=== PATIENT | male | born 1945 | race Caucasian/White ===

== ENCOUNTER 2017-02-21 08:10 | Inpatient (IN) ==
[2017-02-21] MEDS ORDERED: 0.9 % Sodium Chloride 500 ML IVC ONE (08:17)
--- NOTE | 2017-02-21 08:27 | Emergency Department Note ---
START Narrative - START START: I examined this patient and my medical decision-making was reviewed with the emergency medicine resident. I agree with the documented findings, disposition and treatment plan as described except to the extent set forth below. Patient seen with emergency medicine resident Dr. Joe Arevalo, Please see a copy of his note for details of the H&P, ED evaluation, management and disposition. I have independently evaluated the patient and confirmed appropriate portions of the history and physical exam. Briefly: 71-year-old male [facility] patient by [facility] for fall and altered mental status. Patient is on aspirin. No external signs of trauma. Afebrile stable vital signs. Patient will get a noncontrast CT of head screening labs EKG. Disposition pending but admission anticipated.
[2017-02-21 08:38] LABS: Basophils % 0.6 %; Eosinophils # 0.1 K/mcL (0.0-0.6); Eosinophils % 2.2 %; Hematocrit 37.3 % (37.5-50.1); Hemoglobin 11.7 g/dL (12.9-16.9); Immature Granulocytes % 0.5 % (0-4); Lymphocytes % 15.3 %; Mean Corpuscular HGB Conc 31.4 g/dL (31.6-35.5); Mean Corpuscular Hemoglobin 29.3 pg (28.0-33.3); Mean Corpuscular Volume 93.5 fL (83.0-100.0); Mean Platelet Volume 9.7 fL (9.4-12.4); Monocytes # 0.7 K/mcL (0.0-1.3); Neutrophils # 4.6 K/mcL (1.6-8.9); Platelet Count 136 K/mcL (140-400); Red Blood Count 3.99 M/mcL (4.19-5.50); Red Cell Distribution Width 13.3 % (11.5-14.5); Segmented Neutrophils % 71.4 %
[2017-02-21 08:50] LABS: INR 1.3; Prothrombin Time 13.7 Seconds (9.4-12.1)
[2017-02-21 08:51] LABS: Bilirubin,Urine Negative (Negative); Blood,Urine Moderate (Negative); Clarity,Urine Clear (Clear); Color,Urine Yellow (Yellow); Glucose,Urine (UA) Normal (Normal); Ketones,Urine Negative (Negative); Leukocyte Esterase,Urine Small (Negative); Nitrite,Urine Negative (Negative); PH,Urine 7.5 pH Units (5.0-8.0); Protein,Urine 30 mg/dL (Neg-Trace); Urobilinogen,Urine Normal (Normal)
[2017-02-21 08:53] LABS: Activated Partial Thrombo Time 33.2 Seconds (26.0-36.0)
[2017-02-21 08:54] LABS: Albumin 4.1 g/dL (3.5-5.0); Albumin/Globulin Ratio 1.2 (1.1-2.2); Calcium 9.6 mg/dL (8.6-10.8); Globulin 3.5 g/dL (2.4-3.5); Potassium 4.3 mEq/L (3.5-4.5); Total Protein 7.6 g/dL (6.0-8.3)
[2017-02-21 08:54] LABS: Bacteria,Urine None Seen per hpf (None-Few); Hyaline Casts,Urine None Seen per lpf (None-Few); RBC,Urine 30-50 per hpf (0-3); Squamous Epithelial Cell,Urine Many per lpf (None-Few); WBC,Urine 30-50 per hpf (0-3)
--- NOTE | 2017-02-21 09:02 | Emergency Department Note ---
Disposition Clinical Impression: ESRD (end stage renal disease) Urinary tract infection Qualifiers: Urinary tract infection type: site unspecified Hematuria presence: with hematuria Qualified Code(s): N39.0 - Urinary tract infection, site not specified ; R31.9 - Hematuria, unspecified Altered mental status Qualifiers: Altered mental status type: unspecified Qualified Code(s): R41.82 - Altered mental status, unspecified Fall Qualifiers: Encounter type: initial encounter Qualified Code(s): W19.XXXA - Unspecified fall, initial encounter Disposition: Admitted As Inpatient Condition: Fair Time of Disposition: 10:14 General Adult HPI - General Chief complaint: ED Fall Stated complaint: Fall, AMS Time Seen by Provider: 02/21/17 08:14 Source: patient, EMS Mode of arrival: EMS Limitations: no limitations Nursing Notes Reviewed: Yes Vital Signs Reviewed: Yes - History of Present Illness HPI Narrative: Patient presents to the ED with the complaint of fall and altered mental status. Patient is from home and is a dialysis patient with Dr. Campbell on Friday, Friday, Friday. Apparently 2 days ago. The patient had a mechanical fall and has been having right-sided back and hip pain since then. He had dialysis this morning. They felt that he may have been altered and was complaining of some left-sided weakness, possibly. Patient denies any weakness, but is unsure what his baseline is. He is alert and oriented and at baseline according to him , but dialysis, so the patient felt he was a little slower than usual. No difficulty with speech. Patient is somewhat of a poor historian as he does not know all of his medical history and we have no previous records at this time. He is denying any chest pain or shortness of breath, but does have some right- sided low back pain that is radiating down into his right hip. No fever or chills. No diarrhea. Pain Scale: 7 - Related Data Home Medications Medication Instructions Recorded Confirmed Acetaminophen [Tylenol] 650 mg PO PRN PRN 02/26/16 02/26/16 Aspirin Enteric Coated [Aspirin EC] 81 mg PO DAILY 02/26/16 02/26/16 Atorvastatin [Lipitor] 40 mg PO QPM 02/26/16 02/26/16 BuPROPion SR (12 HR) [Wellbutrin 150 mg PO BID 02/26/16 02/26/16 SR] Carvedilol [Coreg] 6.25 mg PO BIDWM 02/26/16 02/26/16 Docusate [Colace] 100 mg PO BID 02/26/16 02/26/16 Doxazosin Mesylate [Cardura] 2 mg PO HS 02/26/16 02/26/16 Ergocalciferol (VITAMIN D2) 800 unit PO BID 02/26/16 02/26/16 [Vitamin D] Ethyl Chloride 2 spray TP AD MDD Prior to Dialysis 02/26/16 02/26/16 Gabapentin [Neurontin] 400 mg PO TID 02/26/16 02/26/16 Hypromellose [Pure & Gentle Eye 1 drop BOTH EYES QID 02/26/16 02/26/16 Drops] Omeprazole [PriLOSEC] 40 mg PO DAILY 02/26/16 02/26/16 Oxybutynin Chloride [Ditropan Xl] 20 mg PO DAILY 02/26/16 02/26/16 Oxycodone HCl 10 mg PO BID 02/26/16 02/26/16 Sertraline [Zoloft] 100 mg PO QAM 02/26/16 02/26/16 TraZODone 50 mg PO HS PRN 02/26/16 02/26/16 Previous Rx's Medication Instructions Recorded Amoxicillin 250 mg PO QMWF #3 capsule 02/29/16 Amoxicillin 500 mg PO DAILY #5 tablet 02/29/16 Allergies Allergy/AdvReac Type Severity Reaction Status Date / Time gemfibrozil Allergy See Verified 02/21/17 08:21 Comments Terazosin Allergy See Verified 02/21/17 08:21 Comments All systems ED: reviewed and negative except as stated. Constitutional: Reports: weakness (possibe ). Denies: fever Cardiovascular: Denies: chest pain Respiratory: Denies: dyspnea Gastrointestinal: Denies: vomiting Musculoskeletal: Reports: as per HPI, back pain Neurological: Denies: headache Past Medical History - Past Medical History Attestation: Yes The following information was validated with the patient. Source: patient Medical history: Reports: cancer, CHF, COPD, diabetes, GERD, hyperlipidemia, hypertension, renal disease, TIA Psychiatric history: Reports: depression, PTSD - Social History Smoking Status: Never smoker Alcohol use: Reports: none Drug use: Reports: none Physical Exam - General Limitations: no limitations General appearance: alert, in no apparent distress - Head Head exam: atraumatic, normocephalic, normal inspection - Eye Eye exam: Present: normal appearance, PERRL, EOMI. Absent: conjunctival injection - Neck Neck exam: Present: normal inspection, full ROM, trachea midline - Chest Chest inspection: Present: normal inspection, symmetric chest wall rise - Respiratory Respiratory exam: Present: normal lung sounds bilaterally - Cardiovascular Cardiovascular exam: Present: regular rate, normal rhythm, normal heart sounds - Abdominal Exam Abdominal exam: Present: soft, Non-Tender. Absent: tenderness, distention, guarding, rebound, rigidity - Extremities Exam Extremities exam: Present: other (bilateral leg weakness patient states is from low back and R low back pain) - Expanded Lower Extremity Exam Hip/Pelvis exam: Present: pelvis stable. Absent: tenderness, deformity, dislocation, external rotation, internal rotation, shortening - Back Exam Back exam: Present: tenderness, muscle spasm (R lumbar and piriformis ) - Neurological Exam Neurological exam: Present: alert, oriented X3 - Psychiatric Psychiatric exam: Present: flat affect - Skin Skin exam: Present: warm, dry, intact, normal color Course Course Narrative: 71 -year-old male presenting with altered mental status and fall from dialysis. Workup initiated. Patient's not tender in his right hip. Log roll is negative for pain. He does have a positive straight leg raise which causes pain in his low back on the right. We will CT his head and lumbar spine. Anticipated admission. - Consultations Consultation #1: Admitted to the hospitalist. Did request CT of head due to patient being nonambulatory. Also of note, patient did have x-rays at an urgent care 2 days ago that were normal. Time: 10:13 Vital Signs Temperature 97.9 F 02/21/17 08:12 Pulse Rate 70 02/21/17 08:12 Respiratory Rate 16 02/21/17 08:12 Blood Pressure 136/87 02/21/17 08:12 O2 Sat by Pulse Oximetry 93 02/21/17 08:12 Temperature 97.9 F 02/21/17 08:12 Pulse Rate 70 02/21/17 09:24 Respiratory Rate 16 02/21/17 09:24 Blood Pressure 138/88 02/21/17 09:24 O2 Sat by Pulse Oximetry 94 02/21/17 09:24 Oxygen Delivery Oxygen Delivery Room Air Medical Decision Making - Medical Records Medical records reviewed: Yes I reviewed the patient's medical records. - Lab Data Lab results reviewed: Yes I reviewed the patient's lab results. Result diagrams: 02/21/17 08:31 02/21/17 08:31 Lab Results 02/21/17 02/21/17 02/21/17 Range/Units 08:30 08:31 08:31 WBC 6.5 (4.3-11.1) K/mcL RBC 3.99 L (4.19-5.50) M/mcL Hgb 11.7 L (12.9-16.9) g/dL Hct 37.3 L (37.5-50.1) % MCV 93.5 (83.0-100.0) fL MCH 29.3 (28.0-33.3) pg MCHC 31.4 L (31.6-35.5) g/dL RDW 13.3 (11.5-14.5) % Plt Count 136 L (140-400) K/mcL MPV 9.7 (9.4-12.4) fL Immature Gran % 0.5 (0-4) % Seg Neutrophils % 71.4 % Lymphocytes % 15.3 % Monocytes % 10.0 % Eosinophils % 2.2 % Basophils % 0.6 % Neutrophils # 4.6 (1.6-8.9) K/mcL Lymphocytes # 1.0 (0.6-4.6) K/mcL Monocytes # 0.7 (0.0-1.3) K/mcL Eosinophils # 0.1 (0.0-0.6) K/mcL Basophils # 0.0 (0.0-0.2) K/mcL PT 13.7 H (9.4-12.1) Seconds INR 1.3 APTT 33.2 (26.0-36.0) Seconds Sodium (136-145) mEq/L Potassium (3.5-4.5) mEq/L Chloride (98-109) mEq/L Carbon Dioxide (19-29) mEq/L BUN (8-26) mg/dL Creatinine (0.72-1.25) mg/dL Est GFR ( Amer) (> 60) Est GFR (Non-Af Amer) (> 60) BUN/Creatinine Ratio (6-26) Glucose (70-99) mg/dL Calculated Osmolality (280-300) Lactic Acid (0.5-2.2) mmol/L Calcium (8.6-10.8) mg/dL Total Bilirubin (0.2-1.2) mg/dL AST (5-34) Units/L ALT (0-55) Units/L Alkaline Phosphatase (38-126) Units/L Troponin I (0-0.03) ng/mL Serum Total Protein (6.0-8.3) g/dL Albumin (3.5-5.0) g/dL Globulin (2.4-3.5) g/dL Albumin/Globulin Ratio (1.1-2.2) Urine Color Yellow (Yellow) Urine Clarity Clear (Clear) Urine pH 7.5 (5.0-8.0) pH Units Ur Specific [place] 1.020 (1.010-1.025) Urine Protein 30 H (Neg-Trace) mg/dL Urine Glucose (UA) Normal (Normal) mg/dL Urine Ketones Negative (Negative) mg/dL Urine Blood Moderate H (Negative) Urine Nitrite Negative (Negative) Urine Bilirubin Negative (Negative) Urine Urobilinogen Normal (Normal) mg/dL Ur Leukocyte Esterase Small H (Negative) Urine Microscopic RBC 30-50 H (0-3) per hpf Urine Microscopic WBC 30-50 H (0-3) per hpf Ur Squamous Epith Cells Many H (None-Few) per lpf Urine Bacteria None Seen (None-Few) per hpf Hyaline Casts None Seen (None-Few) per lpf Ur Culture Indicated? YES A (NO) 02/21/17 02/21/17 02/21/17 Range/Units 08:31 08:31 08:31 WBC (4.3-11.1) K/mcL RBC (4.19-5.50) M/mcL Hgb (12.9-16.9) g/dL Hct (37.5-50.1) % MCV (83.0-100.0) fL MCH (28.0-33.3) pg MCHC (31.6-35.5) g/dL RDW (11.5-14.5) % Plt Count (140-400) K/mcL MPV (9.4-12.4) fL Immature Gran % (0-4) % Seg Neutrophils % % Lymphocytes % % Monocytes % % Eosinophils % % Basophils % % Neutrophils # (1.6-8.9) K/mcL Lymphocytes # (0.6-4.6) K/mcL Monocytes # (0.0-1.3) K/mcL Eosinophils # (0.0-0.6) K/mcL Basophils # (0.0-0.2) K/mcL PT (9.4-12.1) Seconds INR APTT (26.0-36.0) Seconds Sodium 145 (136-145) mEq/L Potassium 4.3 (3.5-4.5) mEq/L Chloride 102 (98-109) mEq/L Carbon Dioxide 35 H (19-29) mEq/L BUN 18 (8-26) mg/dL Creatinine 1.85 H (0.72-1.25) mg/dL Est GFR ( Amer) 44 L (> 60) Est GFR (Non-Af Amer) 36 L (> 60) BUN/Creatinine Ratio 10 (6-26) Glucose 75 (70-99) mg/dL Calculated Osmolality 301 H (280-300) Lactic Acid 0.7 (0.5-2.2) mmol/L Calcium 9.6 (8.6-10.8) mg/dL Total Bilirubin 1.0 (0.2-1.2) mg/dL AST 14 (5-34) Units/L ALT 14 (0-55) Units/L Alkaline Phosphatase 86 (38-126) Units/L Troponin I 0.02 (0-0.03) ng/mL Serum Total Protein 7.6 (6.0-8.3) g/dL Albumin 4.1 (3.5-5.0) g/dL Globulin 3.5 (2.4-3.5) g/dL Albumin/Globulin Ratio 1.2 (1.1-2.2) Urine Color (Yellow) Urine Clarity (Clear) Urine pH (5.0-8.0) pH Units Ur Specific [place] (1.010-1.025) Urine Protein (Neg-Trace) mg/dL Urine Glucose (UA) (Normal) mg/dL Urine Ketones (Negative) mg/dL Urine Blood (Negative) Urine Nitrite (Negative) Urine Bilirubin (Negative) Urine Urobilinogen (Normal) mg/dL Ur Leukocyte Esterase (Negative) Urine Microscopic RBC (0-3) per hpf Urine Microscopic WBC (0-3) per hpf Ur Squamous Epith Cells (None-Few) per lpf Urine Bacteria (None-Few) per hpf Hyaline Casts (None-Few) per lpf Ur Culture Indicated? (NO) - Radiology Data Radiology results reviewed: Yes I reviewed the patient's radiology results. Chest X-Ray 02/21/17 08:14 IMPRESSION: 1. Patchy airspace opacities which may represent infection or aspiration. 2. Small left effusion. 3. Cardiomegaly. D/ / Tali Glaser MD / Tali Glaser MD Interpreting Provider: Tali Glaser MD - EKG Data EKG #1 EKG attestation: Yes I reviewed and interpreted this EKG. EKG results narrative: Paced rhythm, rate 70, QRS 185, QTC 497, no acute ischemic changes.
[2017-02-21] MEDS ORDERED: Naloxone 0.4 MG/ML INJ IVP PRN (10:18)
[2017-02-21] MEDS ORDERED: Ondansetron 4 MG/2 ML VIAL IVP PRN (10:18)
--- NOTE | 2017-02-21 10:29 | Internal Med History&Physical ---
Date of Encounter: 02/21/17 Time of Encounter: 10:30 Assessment and Plan (1) Altered mental status Current visit: Yes Status: Acute Likely multifactorial - secondary to possible acute UTI, polypharmacy (new cyclobenzaprine and increased hydrocodone dose from baseline) in setting of ESRD. CT head negative for acute abnormalities. During my exam patient is AOx3, confusion has been intermittent and subtle. - Treat for UTI - Hold cyclobenzaprine - Monitor for improvement in confusion Qualifiers: Altered mental status type: unspecified Qualified Code(s): R41.82 - Altered mental status, unspecified (2) Urinary tract infection Current visit: Yes Status: Acute UA with 30-50 WBCs/HPF from cathed specimen. Could have component of urinary retention - Ceftriaxone initiated in ED, will continue - Urine culture pending - Bladder scan Q4H, straight cath if >250ccs residual Qualifiers: Urinary tract infection type: site unspecified Hematuria presence: with hematuria Qualified Code(s): N39.0 - Urinary tract infection, site not specified; R31.9 - Hematuria, unspecified (3) Right hip pain Current visit: Yes Status: Acute S/p fall. X-rays from urgent care were reportedly normal per 's report. - CT right hip to further eval for fracture - Further management pending CT results (4) Atrial fibrillation Current visit: Yes Status: Acute S/p AV node ablation and BiV/ICD placement. Is not anticoagulated secondary to history of GI bleed - Continue home carvedilol and ASA Qualifiers: Atrial fibrillation type: chronic Qualified Code(s): I48.2 - Chronic atrial fibrillation (5) ESRD (end stage renal disease) Current visit: Yes Status: Chronic Patient did receive dialysis today, was stopped fifty minutes early according to his because of his confusion. Missed dialysis Friday. Electrolytes stable. - Will inform Dr. Campbell of patient's admission, will not formally consult unless patient needs dialysis during admission Internal Medicine - H&P: HPI Chief complaint: Altered mentation, right hip pain Admitted From: Emergency Dept Plans for Post Hospital Care: Home History of present illness: Mr. Lee is a 71 year old male with history of ESRD on HD MWF (follows with Dr. Campbell), COPD, bladder cancer, atrial fibrillation with LBBB and CHF s/p BiV ICD who presented to the ED from dialysis this morning because the dialysis nurses noted that he was acting confused. The patient's is present at bedside and helps provide history. She notes that he fell on 02/18 while [facility] and hurt his right hip. The pain was severe and she took him to the [place] urgent care twice for evaluation. He had xrays performed which did not show evidence of fracture, so he was started on cyclobenzaprine and told to take increased dose of his hydrocodone he is already prescribed for chronic lower back pain. His has noticed that he has been intermittently confused since starting these medications. His right hip has continued to be extremely painful with any type of movement, and he has been unable to walk since he fell on Friday. He fell again yesterday and he is unsure if he hit his head. He denies headache, chest pain or shortness of breath. He notes that he does make a significant amount of urine daily, has been using a urinal at home because he is unable to walk to the bathroom. He has not had fever or chills. Past Med Surg Social Fam HX - Past Medical History Medical history: cancer (bladder), CHF, COPD, diabetes, GERD, hyperlipidemia, hypertension, renal disease (ESRD on HD, follows with Dr. Campbell), TIA Psychiatric history: depression, PTSD - Past Surgical History Surgical History: pacemaker/AICD, other (dialysis fistula, bladder surgery for cancer) - Social History Smoking Status: Former smoker (quit 20 years ago) Alcohol use: none Drug use: none - Family History Mother Hx Family Cardiac Disorders: Yes Father Hx Family Cardiac Disorders: Yes Internal Medicine - H&P: Meds Acetaminophen [Tylenol] 650 mg PO PRN PRN 02/26/16 [History] Aspirin Enteric Coated [Aspirin EC] 81 mg PO DAILY 02/26/16 [History] Atorvastatin [Lipitor] 40 mg PO QPM 02/26/16 [History] BuPROPion SR (12 HR) [Wellbutrin SR] 150 mg PO BID 02/26/16 [History] Carvedilol [Coreg] 12.5 mg PO BID 02/26/16 [History] Ergocalciferol (VITAMIN D2) [Vitamin D] 800 unit PO BID 02/26/16 [History] Ethyl Chloride 2 spray TP AD MDD Prior to Dialysis 02/26/16 [History] Hypromellose [Pure & Gentle Eye Drops] 1 drop BOTH EYES QID 02/26/16 [History] Omeprazole [PriLOSEC] 40 mg PO DAILY 02/26/16 [History] Oxybutynin Chloride [Ditropan Xl] 20 mg PO DAILY 02/26/16 [History] Oxycodone HCl 10 mg PO BID 02/26/16 [History] Sertraline [Zoloft] 100 mg PO QAM 02/26/16 [History] TraZODone 50 mg PO HS PRN 02/26/16 [History] Albuterol Sulfate [Albuterol Inhaler] 2 puff IH Q6H PRN 02/21/17 [History] Gabapentin [Neurontin] 300 mg PO TID 02/21/17 [History] 3 Allergy/AdvReac Type Severity Reaction Status Date / Time gemfibrozil Allergy See Verified 02/21/17 08:21 Comments Terazosin Allergy See Verified 02/21/17 08:21 Comments All Systems PM: A 10-system review of systems was performed and is negative for pertinent findings except as documented above in the HPI. - Constitutional Constitutional: falls, weakness, no fever(s) - Cardiovascular Cardiovascular ROS IM: no chest pain, no dyspnea - Respiratory Respiratory: no cough - Gastrointestinal Gastrointestinal: constipation, no abdominal pain, no diarrhea, no nausea, no vomiting - Musculoskeletal Musculoskeletal ROS IM: no numbness, no stiffness - Neurological Neurological ROS: confusion, no tremor(s) - Endocrine Endocrine IM: fatigue - Constitutional Vitals: Temp Pulse Resp BP Pulse Ox 97.9 F 70 16 148/89 94 02/21/17 08:12 02/21/17 09:24 02/21/17 10:17 02/21/17 10:17 02/21/17 09:24 General appearance: Present: A&O X 3, pleasant, no acute distress - Head Head exam: Present: atraumatic - Eye Eye exam: Present: EOMI, sclera anicteric - ENT ENT exam: Present: mucous membranes moist - Neck Neck exam general surgery: Present: supple - Respiratory Respiratory exam: Present: CTAB - Cardiovascular Cardiovascular exam: Present: RRR. Absent: diastolic murmur, systolic murmur, tachycardia - GI/Abdominal GI/Abdominal exam: Present: normal bowel sounds, soft. Absent: distended, tenderness - Extremities Exam Extremities exam: Absent: calf tenderness, pedal edema Additional comments: pain with passive hip flexion, no point tenderness appreciated - Neurological Exam Neurological exam: Present: CN II-XII intact, oriented X3, strengths equal and symetr throughout. Absent: facial droop - Skin Skin exam: Absent: rash Internal Med - H&P Results - Labs CBC & Chem 7: 02/21/17 08:31 02/21/17 08:31
[2017-02-21] MEDS ORDERED: traZODone 50 MG TABLET PO PRN (12:16)
[2017-02-21] MEDS ORDERED: Ethyl Chloride Spray Bottle (104 SPRAY/BOTTLE) TP SCH (12:30)
[2017-02-21] MEDS ORDERED: Artificial Tears SOLN 15 ML BOTTLE BOTH EYES SCH (13:00)
[2017-02-21] MEDS ORDERED: Ethyl Chloride Spray Bottle (104 SPRAY/BOTTLE) TP PRN (13:43)
[2017-02-21] MEDS: Gabapentin 300 MG CAPSULE PO SCH ×2 (14:05→21:16)
[2017-02-21] MEDS: *HR* OxyCODONE Immed Rel 5 MG TABLET PO PRN (14:07)
[2017-02-21] MEDS ORDERED: Artificial Tears SOLN 15 ML BOTTLE BOTH EYES PRN (14:31)
[2017-02-21] MEDS: Acetaminophen 325 MG TABLET PO PRN (15:41)
--- NOTE | 2017-02-21 18:12 | Electrocardiograph Report ---
[place] [id number] Test Date: 2017-02-21 Pat Name: Sreekanth Lee Department: 103 Room: [facility] Gender: M Field Research Assistant: : [id number] Requested By: Joe Arevalo Order Number: [id number] [place] MD: Glenys Nickerson Measurements Intervals [place] Rate: 70 P: MA: 0 QRS: 215 QRSD: 185 T: 20 QT: 477 QTc: 497 Interpretive Statements ELECTRONIC VENTRICULAR PACEMAKER ABNORMAL RHYTHM ECG Electronically Signed On 02-21-2017 18:11:28 EDT by Glenys Nickerson
[2017-02-21] MEDS ORDERED: *HR* OxyCODONE Immed Rel 5 MG TABLET PO SCH (21:00)
[2017-02-21] MEDS: BuPROPion SR (12 HR) 150 MG TABLET PO SCH (21:16)
[2017-02-22] MEDS: *HR* OxyCODONE Immed Rel 5 MG TABLET PO PRN ×2 (00:11→11:25)
[2017-02-22 03:52] LABS: Basophils # 0.1 K/mcL (0.0-0.2); Basophils % 0.7 %; Eosinophils # 0.1 K/mcL (0.0-0.6); Eosinophils % 1.8 %; Hematocrit 36.1 % (37.5-50.1); Immature Granulocytes % 0.3 % (0-4); Lymphocytes % 13.7 %; Mean Corpuscular HGB Conc 30.5 g/dL (31.6-35.5); Mean Corpuscular Hemoglobin 29.3 pg (28.0-33.3); Mean Platelet Volume 9.9 fL (9.4-12.4); Monocytes # 0.7 K/mcL (0.0-1.3); Monocytes % 9.7 %; Neutrophils # 5.5 K/mcL (1.6-8.9); Platelet Count 139 K/mcL (140-400); Red Blood Count 3.76 M/mcL (4.19-5.50); Red Cell Distribution Width 13.5 % (11.5-14.5); Segmented Neutrophils % 73.8 %
[2017-02-22 04:05] LABS: Calcium 9.2 mg/dL (8.6-10.8); Potassium 4.9 mEq/L (3.5-4.5)
[2017-02-22] MEDS: Aspirin Enteric Coated 81 MG Tablet PO SCH (08:11)
[2017-02-22] MEDS: BuPROPion SR (12 HR) 150 MG TABLET PO SCH ×2 (08:11→22:25)
[2017-02-22] MEDS: Cholecalciferol (D-3) 1,000 UNIT TABLET PO SCH (08:12)
[2017-02-22] MEDS: Gabapentin 300 MG CAPSULE PO SCH ×3 (08:12→22:25)
--- NOTE | 2017-02-22 08:46 | Nephrology Consult Note ---
Date of Encounter: 02/22/17 Time of Encounter: 08:15 Assessment and Plan (1) ESRD (end stage renal disease) Current Visit: Yes Status: Chronic Altered mental status changes most likely to start of cyclobenzaprine and increase in hydrocodone. UTI may be contributing. No HD today, will follow. History of Present Illness - Reason for Consult end stage renal disease - History of Present Illness Mr. Lee is a 71 year old male with ESRD who dialyzes at [facility]. Other PMH-CHF, COPD, diabetes, GERD, hyperlipidemia, hypertension, renal disease ( ESRD on HD, follows with Dr. Campbell), TIA, depression, PTSD. Last dialysis yesterday though ended treatment 50 minutes kamila when noted to have mental status changes. Mr. Lee was somewhat difficult to arouse on treatment and noted by staff to have slow speech and difficulty lifting glass of water to mouth. It was noted that Mr. Lee had fallen on Friday and again on . He is a poor historian. Staff spoke with who agreed patient had not been at his baseline mentation. Recently started on cyclobenzaprine with an increase in hydrocodone dose from baseline. Xrays on Friday at Urgent Care reported as negtive. CT of hip yesterday, no acute abnormalities. Head CT-No acute intracranial abnormality. Urine 30-50 WBCs/HPF from cathed specimen. Started on Ceftriaxone. Urine culture pending. This morning Mr. Lee who is well known, seems to be back at his baseline mental status and he states he feels better and more aware. Past Med Surg Social Fam HX - Past Medical History Medical history: cancer (bladder), CHF, COPD, diabetes, GERD, hyperlipidemia, hypertension, renal disease (ESRD on HD, follows with Dr. Campbell), TIA Psychiatric history: depression, PTSD - Past Surgical History Surgical History: pacemaker/AICD, other (dialysis fistula, bladder surgery for cancer) - Social History Smoking Status: Former smoker (quit 20 years ago) Alcohol use: none Drug use: none - Family History Mother Living Status: Hx Family Cardiac Disorders: Yes Father Living Status: Hx Family Cardiac Disorders: Yes Medications and Allergies Acetaminophen [Tylenol] 650 mg PO PRN PRN 02/26/16 [History] Aspirin Enteric Coated [Aspirin EC] 81 mg PO DAILY 02/26/16 [History] Atorvastatin [Lipitor] 40 mg PO QPM 02/26/16 [History] BuPROPion SR (12 HR) [Wellbutrin SR] 150 mg PO BID 02/26/16 [History] Carvedilol [Coreg] 12.5 mg PO BID 02/26/16 [History] Ergocalciferol (VITAMIN D2) [Vitamin D] 800 unit PO BID 02/26/16 [History] Ethyl Chloride 2 spray TP AD MDD Prior to Dialysis 02/26/16 [History] Hypromellose [Pure & Gentle Eye Drops] 1 drop BOTH EYES QID 02/26/16 [History] Omeprazole [PriLOSEC] 40 mg PO DAILY 02/26/16 [History] Oxybutynin Chloride [Ditropan Xl] 20 mg PO DAILY 02/26/16 [History] Oxycodone HCl 10 mg PO BID 02/26/16 [History] Sertraline [Zoloft] 100 mg PO QAM 02/26/16 [History] TraZODone 50 mg PO HS PRN 02/26/16 [History] Albuterol Sulfate [Albuterol Inhaler] 2 puff IH Q6H PRN 02/21/17 [History] Gabapentin [Neurontin] 300 mg PO TID 02/21/17 [History] 3 Allergy/AdvReac Type Severity Reaction Status Date / Time gemfibrozil Allergy See Verified 02/21/17 08:21 Comments Terazosin Allergy See Verified 02/21/17 08:21 Comments Review of Systems All Systems: reviewed and no additional remarkable complaints except as stated Exam - Vital Signs Vital signs: Initial Vital Signs Temp Pulse Resp BP Pulse Ox 97.9 F 70 16 136/87 93 02/21/17 08:12 02/21/17 08:12 02/21/17 08:12 02/21/17 08:12 02/21/17 08:12 Vital Signs - Last 8 Hours Temp Pulse Resp BP Pulse Ox 02/22/17 06:55 98.6 F 72 16 127/73 91 02/22/17 03:40 98.6 F 71 16 130/56 90 Intake and Output 02/21/17 02/22/17 02/22/17 23:59 07:59 15:59 Intake Total 120 / 120 80 / 80 Output Total 100 / 100 250 / 250 Balance 20 / 20 -170 / -170 Intake: Oral 120 / 120 80 / 80 Output: Urine 100 / 100 250 / 250 Other: Meal Dinner Percent of Meal Consumed 70% - General Appearance General appearance: well-developed, well-nourished, appears started age EENT: mucous membranes moist Neck: no JVD Respiratory: clear Cardiology: no edema, regular rate, regular rhythm Gastrointestinal: normoactive bowel sounds, no tenderness Integumentary: warm and dry Psychiatric: mood/affect appropriate, cooperative Results - Lab Results 02/22/17 03:30 02/22/17 03:30 Most recent lab results Calcium 9.2 mg/dL (8.6-10.8) 02/22/17 03:30 Consult Discharge Plan - Plan [facility]errals: [facility]Primary Care Provider[facility] -
--- NOTE | 2017-02-22 08:50 | Internal Med Progress Note ---
Date of Encounter: 02/22/17 Time of Encounter: 08:43 - Subjective Interval history: Mr. Sreekanth Lee is a 71-year-old male came in with the fall and right hip pain followed by confusion. He has past medical history significant for diabetes hypertension dyslipidemia ESRD with dialysis cardiomyopathy/CHF EF of only 30-35 % and global hypokinesis on recent status post ICD. Apparently he was restarted on Flexeril and increased dose of [place] after his fall by urgent care where x-ray hip was reported negative for fracture. He was noted confusing dialysis and was sent to the hospital. UA showed positive leukocytes. #1 altered mental status: Could be metabolic encephalopathy secondary to UTI versus iatrogenic secondary to Flexeril and to [place]. Therefore will stop Flexeril produced [place] as this is his chronic medication and watch him neurologically. Admitting M.D. has put a neuro consult and CT is reported negative. #2 right hip pain/lumbar spondylosis: CT right hip is negative for fracture. CT lumbar spine showed moderate lumbar canal spinal canal stenosis as well as bilateral L4-5 and L5-S1 lumbar radiculopathy/foramen stenosis. Right hip examined. Full range of motion and no pain. PT OT will be consulted. #3 UTI: Cultures pending patient is on IV Rocephin and follow CBC and clinically #4 ESRD: Nephrology is consulted #5 diabetes/hypertension/dyslipidemia continue home medication Accu-Chek 4 times a day with sliding scale coverage monitor blood pressure daily #6 history of CHF/cardiomyopathy EF 30-35% status post ICD continue home medication stable at this time - Constitutional Vitals: Temp Pulse Resp BP Pulse Ox 98.6 F 72 16 127/73 91 02/22/17 06:55 02/22/17 06:55 02/22/17 06:55 02/22/17 06:55 02/22/17 06:55 General appearance: Present: A&O X 3, pleasant, no acute distress - Head Head exam: Present: atraumatic, normocephalic - Eye Eye exam: Present: PERRL, conjuntiva pink, sclera anicteric Pupils: Present: PERRL - Neck Neck exam general surgery: Present: supple, trachea midline. Absent: lymphadenopathy - Respiratory Respiratory exam: Present: CTAB. Absent: accessory muscle use, rales, rhonchi, wheezes - Cardiovascular Cardiovascular exam: Present: RRR, +S1, +S2. Absent: diastolic murmur, gallop, rubs, systolic murmur - GI/Abdominal GI/Abdominal exam: Present: normal bowel sounds, soft, no peritoneal signs. Absent: distended, tenderness - Extremities Exam Extremities exam: Present: warm, radial pulses palpable and symmetrical. Absent : calf tenderness, cyanotic, pedal edema Additional comments: Right hip exam and full range of motion nice flexion and extension and internal and external rotation without any pain I suspect his lower back pain is perhaps related to his lumbar spondylosis and radiculopathy. - Neurological Exam Neurological exam: Present: CN II-XII intact, oriented X3, no focal deficits. Absent: pronater drift, facial droop, speech deficit - Skin Skin exam: Present: dry, intact Internal Medicine: Result - Labs CBC & Chem 7: 02/22/17 03:30 02/22/17 03:30 Labs: Short CBC 02/22/17 Range/Units 03:30 WBC 7.4 (4.3-11.1) K/mcL Hgb 11.0 L (12.9-16.9) g/dL Hct 36.1 L (37.5-50.1) % Plt Count 139 L (140-400) K/mcL Neutrophils # 5.5 (1.6-8.9) K/mcL BMP 02/22/17 03:30 Sodium 143 Potassium 4.9 H Chloride 103 Carbon Dioxide 32 H BUN 26 Creatinine 2.62 H Glucose 89 Calcium 9.2 - ABG Interpretation ABG results: PT/INR, D-dimer PT 13.7 Seconds (9.4-12.1) H 02/21/17 08:31 - Impressions Impressions Hip CT 02/21/17 10:11 IMPRESSION: No acute abnormalities. If there is persistent clinical concern or difficulty weight-bearing suggest MRI evaluation. Mild degenerative changes to both hips and both SI joints. There are also degenerative changes to the visualized lower lumbar spine. Focus of calcification within the right likely quadratus femoris tendon towards femoral attachment which may reflect calcific tendinitis. There is some gas within the urinary bladder. Correlate clinically as to recent instrumentation and to exclude infectious etiology. Colonic diverticulosis. D/ / 02/21/2017 12:02:15 Shelton Hebert MD / amy Interpreting Provider: Shelton Hebert MD Consult Discharge Plan - Plan [facility]errals: [facility] [Primary Care Provider] -
[2017-02-22] MEDS: Acetaminophen 325 MG TABLET PO PRN (22:25)
[2017-02-23] MEDS: *HR* OxyCODONE Immed Rel 5 MG TABLET PO PRN ×2 (00:28→15:23)
[2017-02-23 05:18] LABS: Basophils # 0.1 K/mcL (0.0-0.2); Basophils % 0.7 %; Eosinophils # 0.1 K/mcL (0.0-0.6); Hematocrit 35.4 % (37.5-50.1); Hemoglobin 11.1 g/dL (12.9-16.9); Immature Granulocytes % 0.4 % (0-4); Immature Platelets 2.9 % (1.1-6.1); Lymphocytes # 1.3 K/mcL (0.6-4.6); Lymphocytes % 18.7 %; Mean Corpuscular HGB Conc 31.4 g/dL (31.6-35.5); Mean Corpuscular Hemoglobin 29.7 pg (28.0-33.3); Mean Corpuscular Volume 94.7 fL (83.0-100.0); Mean Platelet Volume 9.7 fL (9.4-12.4); Monocytes # 0.7 K/mcL (0.0-1.3); Monocytes % 9.6 %; Neutrophils # 4.8 K/mcL (1.6-8.9); Platelet Count 149 K/mcL (140-400); Red Blood Count 3.74 M/mcL (4.19-5.50); Red Cell Distribution Width 13.4 % (11.5-14.5); Segmented Neutrophils % 68.6 %
[2017-02-23 05:36] LABS: Albumin 3.6 g/dL (3.5-5.0); Albumin/Globulin Ratio 1.1 (1.1-2.2); Bilirubin,Total 0.6 mg/dL (0.2-1.2); Calcium 9.2 mg/dL (8.6-10.8); Globulin 3.2 g/dL (2.4-3.5); Magnesium 1.9 mg/dL (1.6-2.6); Phosphorous 4.3 mg/dL (2.3-4.7); Total Protein 6.8 g/dL (6.0-8.3)
[2017-02-23] MEDS: Acetaminophen 325 MG TABLET PO PRN ×2 (06:27→17:47)
--- NOTE | 2017-02-23 07:50 | Nephrology Progress Note ---
Date of Encounter: 02/23/17 Time of Encounter: 07:25 - Assessment and Plan (1) ESRD (end stage renal disease) Current Visit: Yes Status: Chronic Altered mental status changes most likely to start of cyclobenzaprine and increase in hydrocodone. Urine-nogrowth, final. . No HD today, If discharged will dialyze tomorrow at [place]. Subjective Interval history: Laying in bed. At baseline mentation. States feels good and wants to go home. No new complaints. Objective - Vital Signs Vital signs: Vital Signs Temp Pulse Resp BP Pulse Ox 02/23/17 07:13 97.5 F L 70 18 136/68 94 02/23/17 03:34 97.7 F 72 16 128/81 93 02/22/17 23:45 98.6 F 73 16 131/80 93 02/22/17 20:28 97.8 F 70 18 122/67 93 02/22/17 17:35 97.2 F L 72 14 116/73 94 02/22/17 13:30 97.7 F 72 16 116/78 92 02/22/17 11:41 98.2 F 70 16 118/73 94 02/22/17 08:18 91 Intake and Output 02/22/17 02/22/17 02/23/17 15:59 23:59 07:59 Intake Total 600 / 600 640 / 640 0 / 0 Output Total 100 / 100 180 / 180 250 / 250 Balance 500 / 500 460 / 460 -250 / -250 Intake: Oral 600 / 600 640 / 640 0 / 0 Output: Urine 100 / 100 180 / 180 250 / 250 Other: Meal Lunch Dinner Percent of Meal Consumed 5% 100% Weight 58.8 kg Patient Weight 02/23/17 23:59 Weight 58.8 kg - General Appearance General appearance: Present: well-developed, well-nourished, appears started age EENT: Present: mucous membranes moist Neck: Present: no JVD Respiratory: Present: clear Cardiology: Present: no edema, regular rate, regular rhythm Gastrointestinal: Present: normoactive bowel sounds, no tenderness Integumentary: Present: warm and dry Neurologic: Present: alert and oriented x3 Psychiatric: Present: mood/affect appropriate, cooperative - Lab 02/23/17 05:08 02/23/17 05:08 Most recent lab results Calcium 9.2 mg/dL (8.6-10.8) 02/23/17 05:08 Phosphorus 4.3 mg/dL (2.3-4.7) 02/23/17 05:08 Magnesium 1.9 mg/dL (1.6-2.6) 02/23/17 05:08 Consult Discharge Plan - Plan [facility]errals: [facility] [Primary Care Provider] -
[2017-02-23] MEDS: BuPROPion SR (12 HR) 150 MG TABLET PO SCH ×2 (08:44→20:15)
[2017-02-23] MEDS: Cholecalciferol (D-3) 1,000 UNIT TABLET PO SCH (08:44)
[2017-02-23] MEDS: Gabapentin 300 MG CAPSULE PO SCH ×3 (08:44→20:15)
[2017-02-23] MEDS: Aspirin Enteric Coated 81 MG Tablet PO SCH (08:44)
--- NOTE | 2017-02-23 16:43 | Internal Med Progress Note ---
Date of Encounter: 02/23/17 Time of Encounter: 16:41 - Subjective Interval history: Mr. Sreekanth Lee is a 71-year-old male came in with the fall and right hip pain followed by confusion. He has past medical history significant for diabetes hypertension dyslipidemia ESRD with dialysis cardiomyopathy/CHF EF of only 30-35 % and global hypokinesis on recent status post ICD. Apparently he was restarted on Flexeril and increased dose of [place] after his fall by urgent care where x-ray hip was reported negative for fracture. He was noted confusing dialysis and was sent to the hospital. UA showed positive leukocytes. #1 altered mental status: Well awake and alert now. Could be metabolic encephalopathy secondary to UTI versus iatrogenic secondary to Flexeril and to [place]. Therefore will stop Flexeril produced [place] as this is his chronic medication and watch him neurologically. Admitting M.D. has put a neuro consult and CT is reported negative. #2 right hip pain/lumbar spondylosis: CT right hip is negative for fracture. CT lumbar spine showed moderate lumbar canal spinal canal stenosis as well as bilateral L4-5 and L5-S1 lumbar radiculopathy/foramen stenosis. Right hip examined. Full range of motion and no pain. However he cannot bear any weight on it when I try to stand him up and his serum leg is outward rotated. Discuss with orthopedics who will evaluate him. PT OT will be consulted. Considering his functional level I really doubt if he can send him home in either case. #3 UTI: Cultures pending patient is on IV Rocephin and follow CBC and clinically #4 ESRD: Nephrology is consulted #5 diabetes/hypertension/dyslipidemia continue home medication Accu-Chek 4 times a day with sliding scale coverage monitor blood pressure daily #6 history of CHF/cardiomyopathy EF 30-35% status post ICD continue home medication stable at this time - Constitutional Vitals: Temp Pulse Resp BP Pulse Ox 97.7 F 70 16 138/76 138 02/23/17 16:16 02/23/17 16:16 02/23/17 16:16 02/23/17 16:16 02/23/17 16:16 General appearance: Present: A&O X 3, pleasant, no acute distress - Head Head exam: Present: atraumatic, normocephalic - Eye Eye exam: Present: PERRL, conjuntiva pink, sclera anicteric Pupils: Present: PERRL - Neck Neck exam general surgery: Present: supple, trachea midline. Absent: lymphadenopathy - Respiratory Respiratory exam: Present: CTAB. Absent: accessory muscle use, rales, rhonchi, wheezes - Cardiovascular Cardiovascular exam: Present: RRR, +S1, +S2. Absent: diastolic murmur, gallop, rubs, systolic murmur - GI/Abdominal GI/Abdominal exam: Present: normal bowel sounds, soft, no peritoneal signs. Absent: distended, tenderness - Extremities Exam Extremities exam: Present: warm, radial pulses palpable and symmetrical. Absent : calf tenderness, cyanotic, pedal edema - Neurological Exam Neurological exam: Present: CN II-XII intact, oriented X3, no focal deficits. Absent: pronater drift, facial droop, speech deficit - Skin Skin exam: Present: dry, intact Internal Medicine: Result - Labs CBC & Chem 7: 02/23/17 05:08 02/23/17 05:08 Labs: Short CBC 02/23/17 Range/Units 05:08 WBC 7.0 (4.3-11.1) K/mcL Hgb 11.1 L (12.9-16.9) g/dL Hct 35.4 L (37.5-50.1) % Plt Count 149 (140-400) K/mcL Neutrophils # 4.8 (1.6-8.9) K/mcL BMP 02/23/17 05:08 Sodium 140 Potassium 5.0 H Chloride 103 Carbon Dioxide 27 BUN 38 H D Creatinine 2.82 H Glucose 92 Calcium 9.2 Liver Function 02/23/17 Range/Units 05:08 Total Bilirubin 0.6 (0.2-1.2) mg/dL AST 14 (5-34) Units/L ALT 16 (0-55) Units/L Alkaline Phosphatase 84 (38-126) Units/L Albumin 3.6 (3.5-5.0) g/dL - ABG Interpretation ABG results: PT/INR, D-dimer PT 13.7 Seconds (9.4-12.1) H 02/21/17 08:31 Consult Discharge Plan - Plan [facility]errals: [facility] [Primary Care Provider] -
[2017-02-23] MEDS: *HR* Heparin 5,000 UNIT/ML VIAL SQ SCH (17:48)
--- NOTE | 2017-02-23 21:54 | Orthopedic Consult Note ---
Date of Encounter: 02/24/17 Time of Encounter: 21:53 Assessment and Plan (1) Right hip pain Current Visit: Yes Status: Acute I did discuss the diagnosis in detail with the patient. He does have right buttock and parasacral pain on the right after taking a step on Friday of last week. The hip exam is completely benign. My suspicion for occult hip fracture is low. My suspicion is that he has an occult sacral insufficiency fracture on the right which would be causing his mechanical sharp pains. He is unable to obtain an MRI and therefore I feel it would be reasonable to proceed with a bone scan to evaluate for occult fractures of the pelvis and hip. I will place the order and follow up after the scan has been performed. If he has a sacral insufficiency fracture my recommendation would be for physical therapy and weightbearing as tolerated on the bilateral lower extremities. History of Present Illness HPI: Mr. Lee is a 71 year old male who is currently admitted to the hospitalist due to a urinary tract infection and initially altered mental status. He also has right "hip" pain after taking a bad step on Friday of last week. He was stepping down out of a van when he had sudden onset of posterior buttock and sacral pain. X-rays and a CT scan did not show any fractures of the right hip and orthopedics was consulted to evaluate his pain. An MRI to rule out occult fractures was attempted but was unable to be obtained due to having shrapnel in his left lower extremity and an old pacemaker. On my evaluation the patient indicates that he has had difficulties ambulating since the injury and the difficulty is related to the posterior buttock pain. It only affects him when trying to ambulate and while sitting up in a bed and laying down he has no pain at all. He does admit to some chronic pain in the back for years. He says that when trying to ambulate the pain is quite severe. He describes it as a sharp pain. He denies any numbness, tingling, or any other associated signs or symptoms or modifying factors. He denies any feelings of illness. At baseline he is an unassisted community ambulator and lives independently with his . Past Med Surg Social Fam HX - Past Medical History Medical history: cancer (bladder), CHF, COPD, diabetes, GERD, hyperlipidemia, hypertension, renal disease (ESRD on HD, follows with Dr. Campbell), TIA Psychiatric history: depression, PTSD - Past Surgical History Surgical History: pacemaker/AICD, other (dialysis fistula, bladder surgery for cancer) - Social History Smoking Status: Former smoker (quit 20 years ago) Alcohol use: none Drug use: none - Family History Mother Living Status: Hx Family Cardiac Disorders: Yes Father Living Status: Hx Family Cardiac Disorders: Yes Medications and Allergies Acetaminophen [Tylenol] 650 mg PO PRN PRN 02/26/16 [History] Aspirin Enteric Coated [Aspirin EC] 81 mg PO DAILY 02/26/16 [History] Atorvastatin [Lipitor] 40 mg PO QPM 02/26/16 [History] BuPROPion SR (12 HR) [Wellbutrin SR] 150 mg PO BID 02/26/16 [History] Carvedilol [Coreg] 12.5 mg PO BID 02/26/16 [History] Ergocalciferol (VITAMIN D2) [Vitamin D] 800 unit PO BID 02/26/16 [History] Ethyl Chloride 2 spray TP AD MDD Prior to Dialysis 02/26/16 [History] Hypromellose [Pure & Gentle Eye Drops] 1 drop BOTH EYES QID 02/26/16 [History] Omeprazole [PriLOSEC] 40 mg PO DAILY 02/26/16 [History] Oxybutynin Chloride [Ditropan Xl] 20 mg PO DAILY 02/26/16 [History] Oxycodone HCl 10 mg PO BID 02/26/16 [History] Sertraline [Zoloft] 100 mg PO QAM 02/26/16 [History] TraZODone 50 mg PO HS PRN 02/26/16 [History] Albuterol Sulfate [Albuterol Inhaler] 2 puff IH Q6H PRN 02/21/17 [History] Gabapentin [Neurontin] 300 mg PO TID 02/21/17 [History] 3 Allergy/AdvReac Type Severity Reaction Status Date / Time gemfibrozil Allergy See Verified 02/21/17 08:21 Comments Terazosin Allergy See Verified 02/21/17 08:21 Comments All Systems Reviewed: Constitutional and musculoskeletal systems were reviewed and are negative unless otherwise stated in history of present illness. Physical Exam - Constitutional Vitals: Temp Pulse Resp BP Pulse Ox 98.1 F 72 16 144/87 91 02/23/17 20:07 02/23/17 20:07 02/23/17 20:07 02/23/17 20:07 02/23/17 20:07 Constitutional -Vitals reviewed -The patient is well developed and well nourished. -Mood is pleasant. -The patient is well groomed. Psychiatric -The patient is fully alert and oriented x 3. Respiratory: -Respiratory effort normal Abdomen: -Soft abdomen -Non tender -Non distended: Lumbar and sacral spine: -No tenderness over the lumbar spine -Tenderness over the right sacrum and buttock area Left upper extremity: -No deformities. The overlying skin is intact. No obvious signs of acute trauma. -No tenderness to palpation throughout. -No significant pain with passive motion of the shoulder, elbow, wrist, and fingers within the limits of the bed. -Able to make an "OK" sign, cross the index and long fingers, and extend the thumb. -Sensation grossly intact to light touch throughout the median, radial, and ulnar distributions. -Radial pulse is present; Fingers have good capillary refill. Right upper extremity: -No deformities. The overlying skin is intact. No obvious signs of acute trauma. -No tenderness to palpation throughout. -No significant pain with passive motion of the shoulder, elbow, wrist, and fingers within the limits of the bed. -Able to make an "OK" sign, cross the index and long fingers, and extend the thumb. -Sensation grossly intact to light touch throughout the median, radial, and ulnar distributions. -Radial pulse is present; Fingers have good capillary refill. Left lower extremity: -No deformities. The overlying skin is intact. No obvious signs of acute trauma. -No tenderness to palpation throughout. -No pain with passive motion of the hip, knee, ankle, and toes within the limits of the bed. -No pain with axial loading of the thigh. -Able to dorsiflex and plantarflex the ankle and toes. -Sensation is grossly intact to light touch throughout the sural, saphenous, superficial peroneal, and deep peroneal distributions. -Toes have good capillary refill. Right lower extremity: -No deformities. The overlying skin is intact. No obvious signs of acute trauma. -No tenderness to palpation throughout. -No pain with passive motion of the hip, knee, ankle, and toes within the limits of the bed. -No pain with axial loading of the thigh. -Able to dorsiflex and plantarflex the ankle and toes. -Sensation is grossly intact to light touch throughout the sural, saphenous, superficial peroneal, and deep peroneal distributions. -Toes have good capillary refill. Diagnostic Imaging: I did personally review and interpret a CT scan of the right hip and lumbar spine which do not show any definite fractures. Results - Labs Result Diagrams: 02/24/17 04:51 02/24/17 04:51 Labs: Abnormal lab results RBC 3.74 M/mcL (4.19-5.50) L 02/23/17 05:08 Hgb 11.1 g/dL (12.9-16.9) L 02/23/17 05:08 Hct 35.4 % (37.5-50.1) L 02/23/17 05:08 MCHC 31.4 g/dL (31.6-35.5) L 02/23/17 05:08 PT 13.7 Seconds (9.4-12.1) H 02/21/17 08:31 Potassium 5.0 mEq/L (3.5-4.5) H 02/23/17 05:08 BUN 38 mg/dL (8-26) H D 02/23/17 05:08 Creatinine 2.82 mg/dL (0.72-1.25) H 02/23/17 05:08 Est GFR ( Amer) 27 (> 60) L 02/23/17 05:08 Est GFR (Non-Af Amer) 22 (> 60) L 02/23/17 05:08 Urine Protein 30 mg/dL (Neg-Trace) H 02/21/17 08:30 Urine Blood Moderate (Negative) H 02/21/17 08:30 Ur Leukocyte Esterase Small (Negative) H 02/21/17 08:30 Urine Microscopic RBC 30-50 per hpf (0-3) H 02/21/17 08:30 Urine Microscopic WBC 30-50 per hpf (0-3) H 02/21/17 08:30 Ur Squamous Epith Cells Many per lpf (None-Few) H 02/21/17 08:30 Ur Culture Indicated? YES (NO) A 09/29/17 08:30 H & H 02/23/17 Range/Units 05:08 Hgb 11.1 L (12.9-16.9) g/dL Hct 35.4 L (37.5-50.1) % All other labs normal. Consult Discharge Plan - Plan [facility]errals: [facility] [Primary Care Provider] -
[2017-02-24 05:07] LABS: Basophils # 0.1 K/mcL (0.0-0.2); Basophils % 0.7 %; Eosinophils # 0.2 K/mcL (0.0-0.6); Eosinophils % 2.6 %; Hematocrit 38.6 % (37.5-50.1); Hemoglobin 12.3 g/dL (12.9-16.9); Immature Granulocytes % 0.4 % (0-4); Lymphocytes # 1.4 K/mcL (0.6-4.6); Mean Corpuscular HGB Conc 31.9 g/dL (31.6-35.5); Mean Corpuscular Hemoglobin 30.2 pg (28.0-33.3); Mean Corpuscular Volume 94.8 fL (83.0-100.0); Mean Platelet Volume 9.9 fL (9.4-12.4); Monocytes # 0.7 K/mcL (0.0-1.3); Monocytes % 8.1 %; Neutrophils # 5.8 K/mcL (1.6-8.9); Platelet Count 154 K/mcL (140-400); Red Blood Count 4.07 M/mcL (4.19-5.50); Red Cell Distribution Width 13.5 % (11.5-14.5); Segmented Neutrophils % 71.2 %
[2017-02-24 05:21] LABS: Albumin 3.9 g/dL (3.5-5.0); Albumin/Globulin Ratio 1.1 (1.1-2.2); Bilirubin,Total 0.7 mg/dL (0.2-1.2); Calcium 9.7 mg/dL (8.6-10.8); Globulin 3.6 g/dL (2.4-3.5); Phosphorous 4.6 mg/dL (2.3-4.7); Total Protein 7.5 g/dL (6.0-8.3)
[2017-02-24] MEDS: *HR* OxyCODONE Immed Rel 5 MG TABLET PO PRN ×2 (05:32→19:56)
[2017-02-24] MEDS: *HR* Heparin 5,000 UNIT/ML VIAL SQ SCH ×2 (05:32→17:00)
[2017-02-24] MEDS ORDERED: 0.9 % Sodium Chloride 250 ML IVC PRN (08:09)
--- NOTE | 2017-02-24 08:09 | Nephrology Progress Note ---
Date of Encounter: 02/24/17 Time of Encounter: 08:08 - Assessment and Plan (1) ESRD (end stage renal disease) Current Visit: Yes Status: Chronic Patient will undergo dialysis today. He will not receive heparin. Potassium is 5.0 cm be dialyzed on a 2K bath. (2) Altered mental status Current Visit: Yes Status: Acute Qualifiers: Altered mental status type: delirium Qualified Code(s): R41.82 - Altered mental status, unspecified (3) Right hip pain Current Visit: Yes Status: Acute Subjective Interval history: The patient's mental status has returned to his baseline. The patient's main issue is continued right hip pain with difficulty weightbearing. He has been seen by orthopedics. He is scheduled for his usual dialysis today. Urine culture is negative. Vital signs are stable. Objective - Vital Signs Vital signs: Vital Signs Temp Pulse Resp BP Pulse Ox 02/24/17 07:34 97.7 F 73 18 150/82 96 02/24/17 04:00 97.5 F L 72 16 161/95 96 02/24/17 00:17 97.6 F 73 16 157/79 94 02/23/17 20:07 98.1 F 72 16 144/87 91 02/23/17 16:16 97.7 F 70 16 138/76 138 02/23/17 11:09 97.6 F 70 17 133/79 96 Intake and Output 02/23/17 02/24/17 02/24/17 23:59 07:59 15:59 Intake Total 240 / 240 Output Total 400 / 400 Balance 240 / 240 -400 / -400 Intake: Oral 240 / 240 Output: Urine 400 / 400 Other: Percent of Meal Consumed 100% Weight 58.8 kg Patient Weight 02/24/17 23:59 Weight 58.8 kg - General Appearance Exam: Patient is alert and oriented. He is in no acute distress. Lungs clear to auscultation. Heart regular rate and rhythm with a 2/6 ejection murmur. Abdomen was benign. There is no peripheral edema. There is a functioning AV access in the right upper extremity. - Lab 02/24/17 04:51 02/24/17 04:51 Most recent lab results Calcium 9.7 mg/dL (8.6-10.8) 02/24/17 04:51 Phosphorus 4.6 mg/dL (2.3-4.7) 02/24/17 04:51 Magnesium 2.0 mg/dL (1.6-2.6) 02/24/17 04:51 Consult Discharge Plan - Plan [facility]errals: [facility] [Primary Care Provider] -
[2017-02-24] MEDS: Aspirin Enteric Coated 81 MG Tablet PO SCH (08:32)
[2017-02-24] MEDS: BuPROPion SR (12 HR) 150 MG TABLET PO SCH ×2 (08:32→19:56)
[2017-02-24] MEDS: Gabapentin 300 MG CAPSULE PO SCH ×3 (08:32→19:56)
[2017-02-24] MEDS: Cholecalciferol (D-3) 1,000 UNIT TABLET PO SCH (08:33)
[2017-02-24 11:42] LABS: Hepatitis B Surface Antibody 3.23 mIU/mL; Hepatitis B Surface Antigen Nonreactive (Nonreactive)
[2017-02-24] MEDS ORDERED: 0.9 % Sodium Chloride 2,000 ML ONE (11:55)
--- NOTE | 2017-02-24 12:58 | Internal Med Progress Note ---
Date of Encounter: 02/24/17 Time of Encounter: 12:55 - Assessment and plan (1) Metabolic encephalopathy Current Visit: No Status: Resolved (2) Urinary tract infection Current Visit: Yes Status: Acute Qualifiers: Urinary tract infection type: site unspecified Hematuria presence: with hematuria Qualified Code(s): N39.0 - Urinary tract infection, site not specified; R31.9 - Hematuria, unspecified; R31.9 - Hematuria, unspecified (3) ESRD (end stage renal disease) Current Visit: Yes Status: Chronic (4) Fall Current Visit: Yes Status: Acute Qualifiers: Encounter type: initial encounter Qualified Code(s): W19.XXXA - Unspecified fall, initial encounter (5) Right hip pain Current Visit: Yes Status: Acute (6) Atrial fibrillation Current Visit: Yes Status: Acute Qualifiers: Atrial fibrillation type: chronic Qualified Code(s): I48.2 - Chronic atrial fibrillation - Subjective Interval history: Mr. Sreekanth Lee is a 71-year-old male came in with the fall and right hip pain followed by confusion. He has past medical history significant for diabetes hypertension dyslipidemia ESRD with dialysis cardiomyopathy/CHF EF of only 30-35 % and global hypokinesis on recent status post ICD. Apparently he was restarted on Flexeril and increased dose of [place] after his fall by urgent care where x-ray hip was reported negative for fracture. He was noted confusing dialysis and was sent to the hospital. UA showed positive leukocytes. #1 altered mental status: Well awake and alert now. Could be metabolic encephalopathy secondary to UTI versus iatrogenic secondary to Flexeril and to [place]. Therefore will stop Flexeril produced [place] as this is his chronic medication and watch him neurologically. Head CT is reported negative. #2 right hip pain/lumbar spondylosis: CT right hip is negative for fracture. CT lumbar spine showed moderate lumbar canal spinal canal stenosis as well as bilateral L4-5 and L5-S1 lumbar radiculopathy/foramen stenosis. Right hip examined. Full range of motion and no pain. However he cannot bear any weight on it when I try to stand him up and his serum leg is outward rotated. orthopedics has seen him and is concerned for sacral fracture and bone scan has been ordered as patient cannot have MRI.. PT OT is consulted consulted. Patient cannot bear weight on his right leg and is quite painful when he was tried to be ambulated. Discussed PCR meeting today to offer him fci placement. #3 UTI: Cultures pending patient is on IV Rocephin and follow CBC and clinically #4 ESRD: Nephrology is consulted . In dialysis today #5 diabetes/hypertension/dyslipidemia continue home medication Accu-Chek 4 times a day with sliding scale coverage monitor blood pressure daily #6 history of CHF/cardiomyopathy EF 30-35% status post ICD continue home medication stable at this time - Constitutional Vitals: Temp Pulse Resp BP Pulse Ox 98.1 F 71 15 142/52 94 02/24/17 12:10 02/24/17 11:38 02/24/17 12:10 02/24/17 12:10 02/24/17 11:38 General appearance: Present: A&O X 3, pleasant, no acute distress - Head Head exam: Present: atraumatic, normocephalic - Eye Eye exam: Present: PERRL, conjuntiva pink, sclera anicteric Pupils: Present: PERRL - Neck Neck exam general surgery: Present: supple, trachea midline. Absent: lymphadenopathy - Respiratory Respiratory exam: Present: CTAB. Absent: accessory muscle use, rales, rhonchi, wheezes - Cardiovascular Cardiovascular exam: Present: RRR, +S1, +S2. Absent: diastolic murmur, gallop, rubs, systolic murmur - GI/Abdominal GI/Abdominal exam: Present: normal bowel sounds, soft, no peritoneal signs. Absent: distended, tenderness - Extremities Exam Extremities exam: Present: warm, radial pulses palpable and symmetrical. Absent : calf tenderness, cyanotic, pedal edema Additional comments: Patient is unable to bear weight on right leg or ambulate by himself - Neurological Exam Neurological exam: Present: CN II-XII intact, oriented X3, no focal deficits. Absent: pronater drift, facial droop, speech deficit - Skin Skin exam: Present: dry, intact Internal Medicine: Result - Labs CBC & Chem 7: 02/24/17 04:51 02/24/17 04:51 Labs: Short CBC 02/24/17 Range/Units 04:51 WBC 8.2 (4.3-11.1) K/mcL Hgb 12.3 L (12.9-16.9) g/dL Hct 38.6 (37.5-50.1) % Plt Count 154 (140-400) K/mcL Neutrophils # 5.8 (1.6-8.9) K/mcL BMP 02/24/17 04:51 Sodium 138 Potassium 5.0 H Chloride 102 Carbon Dioxide 26 BUN 46 H Creatinine 2.88 H Glucose 91 Calcium 9.7 Liver Function 02/24/17 Range/Units 04:51 Total Bilirubin 0.7 (0.2-1.2) mg/dL AST 21 (5-34) Units/L ALT 21 (0-55) Units/L Alkaline Phosphatase 89 (38-126) Units/L Albumin 3.9 (3.5-5.0) g/dL - ABG Interpretation ABG results: PT/INR, D-dimer PT 13.7 Seconds (9.4-12.1) H 02/21/17 08:31 Consult Discharge Plan - Plan [facility]: [facility] [Primary Care Provider[facility] -
[2017-02-25 05:21] LABS: Basophils # 0.1 K/mcL (0.0-0.2); Basophils % 0.7 %; Eosinophils # 0.2 K/mcL (0.0-0.6); Eosinophils % 2.4 %; Hematocrit 37.5 % (37.5-50.1); Hemoglobin 11.8 g/dL (12.9-16.9); Immature Granulocytes % 0.6 % (0-4); Lymphocytes # 1.3 K/mcL (0.6-4.6); Mean Corpuscular HGB Conc 31.5 g/dL (31.6-35.5); Mean Corpuscular Hemoglobin 29.4 pg (28.0-33.3); Mean Corpuscular Volume 93.5 fL (83.0-100.0); Mean Platelet Volume 10.3 fL (9.4-12.4); Monocytes # 0.7 K/mcL (0.0-1.3); Monocytes % 10.1 %; Neutrophils # 4.9 K/mcL (1.6-8.9); Platelet Count 177 K/mcL (140-400); Red Blood Count 4.01 M/mcL (4.19-5.50); Red Cell Distribution Width 13.4 % (11.5-14.5); Segmented Neutrophils % 68.2 %
[2017-02-25] MEDS: *HR* Heparin 5,000 UNIT/ML VIAL SQ SCH ×2 (05:55→17:44)
[2017-02-25 06:01] LABS: Albumin 3.8 g/dL (3.5-5.0); Albumin/Globulin Ratio 1.2 (1.1-2.2); Bilirubin,Total 0.8 mg/dL (0.2-1.2); Calcium 9.4 mg/dL (8.6-10.8); Globulin 3.3 g/dL (2.4-3.5); Magnesium 1.8 mg/dL (1.6-2.6); Phosphorous 3.7 mg/dL (2.3-4.7); Potassium 4.3 mEq/L (3.5-4.5); Total Protein 7.1 g/dL (6.0-8.3)
--- NOTE | 2017-02-25 07:17 | Orthopedics Progress Note ---
Date of Encounter: 02/25/17 Time of Encounter: 07:14 - Assessment and Plan (1) Right hip pain Current Visit: Yes Status: Acute I did discuss the diagnosis in detail with the patient. He does have right buttock and parasacral pain on the right after taking a step on Friday of last week. The hip exam is completely benign. My suspicion for occult hip fracture is low. My suspicion is that he has an occult sacral insufficiency fracture on the right which would be causing his mechanical sharp pains. He is unable to obtain an MRI and therefore I feel it would be reasonable to proceed with a bone scan to evaluate for occult fractures of the pelvis and hip. I will place the order and follow up after the scan has been performed. If he has a sacral insufficiency fracture my recommendation would be for physical therapy and weightbearing as tolerated on the bilateral lower extremities. Subjective Interval history: S: Sitting up in a chair. Pain improved to the right buttock area. O: Afebrile and vital signs are stable Tenderness posteriorly over the sacral area and buttocks on the right No pain with active or passive motion of the hip or with axial loading of the thigh The patient can dorsiflex and plantarflex ankle and toes The foot is sensate and well-perfused Bone scan did not show any uptake around the pelvis or sacral areas A: Right buttock and sacral pain after taking an awkward step on Friday of last week P: Given the negative bone scan my suspicion for fracture is exceedingly low Recommend physical therapy for mobilization Follow-up in the office in one week for a clinical reevaluation or sooner if needed Objective Vital signs: Vital Signs Temp Pulse Resp BP Pulse Ox 02/25/17 03:33 97.8 F 72 19 133/81 91 02/24/17 23:49 98.1 F 69 17 134/73 91 02/24/17 18:31 97.5 F L 70 19 134/81 93 02/24/17 15:27 98.3 F 69 18 130/74 93 02/24/17 13:07 70 172/83 02/24/17 12:10 98.1 F 15 142/52 02/24/17 12:00 157/83 02/24/17 11:38 98.2 F 71 18 140/73 94 02/24/17 11:30 145/65 02/24/17 11:00 161/81 02/24/17 10:30 154/87 02/24/17 10:00 155/78 02/24/17 09:30 153/89 02/24/17 09:00 98.1 F 17 123/65 02/24/17 08:39 96 02/24/17 07:34 97.7 F 73 18 150/82 96 Intake and Output 02/24/17 02/24/17 02/25/17 15:59 23:59 07:59 Intake Total 820 / 820 120 / 120 Output Total 2600 / 2600 100 / 100 50 / 50 Balance -1780 / -1780 20 / 20 -50 / -50 Intake: IV Fluids 100 / 100 Rocephin 1,000 MG In Dextrose 5 100 / 100 % (Minibag+) 100 ML 100 ML @ 200 mls/hr IVPB Q24H [facility] Rx#: [id number] Oral 120 / 120 120 / 120 Intake, Rinseback and Flushes 600 / 600 Output: Urine 0 / 0 100 / 100 50 / 50 Total Dialysis (HD) Output 2600 / 2600 Other: Meal Lunch Dinner Percent of Meal Consumed 10% 50% Weight 66.678 kg Hemodialysis Net Fluid Removed 2000 (mL) Patient Weight 02/25/17 23:59 Weight 66.678 kg - Labs CBC & BMP: 02/25/17 04:31 02/25/17 04:31 Labs: Abnormal lab results RBC 4.01 M/mcL (4.19-5.50) L 02/25/17 04:31 Hgb 11.8 g/dL (12.9-16.9) L 02/25/17 04:31 MCHC 31.5 g/dL (31.6-35.5) L 02/25/17 04:31 PT 13.7 Seconds (9.4-12.1) H 02/21/17 08:31 Carbon Dioxide 30 mEq/L (19-29) H 02/25/17 04:31 BUN 34 mg/dL (8-26) H D 02/25/17 04:31 Creatinine 2.24 mg/dL (0.72-1.25) H 02/25/17 04:31 Est GFR ( Amer) 35 (> 60) L 02/25/17 04:31 Est GFR (Non-Af Amer) 29 (> 60) L 02/25/17 04:31 Urine Protein 30 mg/dL (Neg-Trace) H 02/21/17 08:30 Urine Blood Moderate (Negative) H 02/21/17 08:30 Ur Leukocyte Esterase Small (Negative) H 02/21/17 08:30 Urine Microscopic RBC 30-50 per hpf (0-3) H 02/21/17 08:30 Urine Microscopic WBC 30-50 per hpf (0-3) H 02/21/17 08:30 Ur Squamous Epith Cells Many per lpf (None-Few) H 02/21/17 08:30 Ur Culture Indicated? YES (NO) A 02/21/17 08:30 Consult Discharge Plan - Plan [facility]errals: [facility] [Primary Care Provider] -
[2017-02-25] MEDS: Cholecalciferol (D-3) 1,000 UNIT TABLET PO SCH (08:00)
[2017-02-25] MEDS: Gabapentin 300 MG CAPSULE PO SCH ×3 (08:00→23:04)
[2017-02-25] MEDS: BuPROPion SR (12 HR) 150 MG TABLET PO SCH ×2 (08:00→23:04)
[2017-02-25] MEDS: Aspirin Enteric Coated 81 MG Tablet PO SCH (08:01)
--- NOTE | 2017-02-25 08:34 | Nephrology Progress Note ---
Date of Encounter: 02/25/17 Time of Encounter: 08:15 - Assessment and Plan (1) ESRD (end stage renal disease) Current Visit: Yes Status: Chronic Altered mental status changes most likely to start of cyclobenzaprine and increase in hydrocodone. Urine-no growth, final. No HD today, keeping MWF schedule. Subjective Interval history: Sitting up in chair, eating breakfast. at bedside. C/O hip pain. Objective - Vital Signs Vital signs: Vital Signs Temp Pulse Resp BP Pulse Ox 02/25/17 07:32 97.8 F 69 14 149/84 97 02/25/17 03:33 97.8 F 72 19 133/81 91 02/24/17 23:49 98.1 F 69 17 134/73 91 02/24/17 18:31 97.5 F L 70 19 134/81 93 02/24/17 15:27 98.3 F 69 18 130/74 93 02/24/17 13:07 70 172/83 02/24/17 12:10 98.1 F 15 142/52 02/24/17 12:00 157/83 02/24/17 11:38 98.2 F 71 18 140/73 94 02/24/17 11:30 145/65 02/24/17 11:00 161/81 02/24/17 10:30 154/87 02/24/17 10:00 155/78 02/24/17 09:30 153/89 02/24/17 09:00 98.1 F 17 123/65 02/24/17 08:39 96 Intake and Output 02/24/17 02/25/17 02/25/17 23:59 07:59 15:59 Intake Total 120 / 120 Output Total 100 / 100 50 / 50 Balance -50 / -50 Intake: Oral 120 / 120 Output: Urine 100 / 100 50 / 50 Other: Meal Dinner Percent of Meal Consumed 50% Weight 66.678 kg Patient Weight 02/25/17 23:59 Weight 66.678 kg - General Appearance General appearance: Present: well-developed, well-nourished, appears started age EENT: Present: mucous membranes moist Neck: Present: no JVD Respiratory: Present: clear Cardiology: Present: no edema, regular rate, regular rhythm Gastrointestinal: Present: normoactive bowel sounds, no tenderness Integumentary: Present: warm and dry Neurologic: Present: alert and oriented x3 Psychiatric: Present: mood/affect appropriate, cooperative - Lab 02/25/17 04:31 10 04:31 Most recent lab results Calcium 9.4 mg/dL (8.6-10.8) 02/25/17 04:31 Phosphorus 3.7 mg/dL (2.3-4.7) 02/25/17 04:31 Magnesium 1.8 mg/dL (1.6-2.6) 02/25/17 04:31 Consult Discharge Plan - Plan [facility]errals: [facility] [Primary Care Provider] -
[2017-02-25] MEDS: *HR* OxyCODONE Immed Rel 5 MG TABLET PO PRN (11:36)
--- NOTE | 2017-02-25 16:15 | Internal Med Progress Note ---
Date of Encounter: 02/25/17 Time of Encounter: 16:13 - Assessment and plan (1) Right hip pain Current Visit: Yes Status: Acute Assessment and plan: right hip pain/lumbar spondylosis: CT right hip is negative for fracture. CT lumbar spine showed moderate lumbar canal spinal canal stenosis as well as bilateral L4-5 and L5-S1 lumbar radiculopathy/foramen stenosis. Right hip examined. Full range of motion and no pain. However he cannot bear any weight on it when he stands up orthopedics has seen him and is concerned for sacral fracture and bone scan has been ordered as patient cannot have MRI. Bone scan negative for sacral fracture PT OT is consulted consulted: ECF recommended (2) Urinary tract infection Current Visit: Yes Status: Acute Assessment and plan: continue abx for a total of 7 days Day 09/29 Qualifiers: Urinary tract infection type: site unspecified Hematuria presence: with hematuria Qualified Code(s): N39.0 - Urinary tract infection, site not specified; R31.9 - Hematuria, unspecified; R31.9 - Hematuria, unspecified (3) Altered mental status Current Visit: Yes Status: Resolved Assessment and plan: AAO x 3 Could be metabolic encephalopathy secondary to UTI versus iatrogenic secondary to Flexeril and to [place]. D/C flexeril continue [place] Head CT is reported negative. Qualifiers: Altered mental status type: delirium Qualified Code(s): R41.82 - Altered mental status, unspecified (4) ESRD (end stage renal disease) Current Visit: Yes Status: Chronic Assessment and plan: continue HD as per nephro nephro on board and consultation appreciated (5) Metabolic encephalopathy Current Visit: No Status: Resolved (6) DVT prophylaxis Current Visit: No Status: Acute Assessment and plan: Heparin SQ (7) Atrial fibrillation Current Visit: Yes Status: Acute Assessment and plan: S/p AV node ablation and BiV/ICD placement. Is not anticoagulated secondary to history of GI bleed Continue home carvedilol and ASA Qualifiers: Atrial fibrillation type: chronic Qualified Code(s): I48.2 - Chronic atrial fibrillation - Subjective Interval history: Patient seen and examined with family present at bedside. Pt reports of no pain at rest however even with minimal movement, he has severe back pain. PT evaluation recommending ECF group social worker consultation requested for ECF placement. - Constitutional Vitals: Temp Pulse Resp BP Pulse Ox 97.6 F 70 14 154/88 92 02/25/17 16:06 02/25/17 16:06 02/25/17 16:06 02/25/17 16:06 02/25/17 16:06 General appearance: Present: A&O X 3, pleasant, no acute distress, answers questions appropriately - Head Head exam: Present: atraumatic, normocephalic - Eye Eye exam: Present: conjuntiva pink, sclera anicteric - Respiratory Respiratory exam: Present: CTAB. Absent: accessory muscle use, rales, rhonchi, wheezes - Cardiovascular Cardiovascular exam: Present: RRR, +S1, +S2. Absent: diastolic murmur, gallop, rubs, systolic murmur - GI/Abdominal GI/Abdominal exam: Present: normal bowel sounds, soft, no peritoneal signs. Absent: distended, tenderness - Extremities Exam Extremities exam: Present: warm, radial pulses palpable and symmetrical. Absent : calf tenderness - Neurological Exam Neurological exam: Present: alert, oriented X3 - Psychiatric Psychiatric exam: Present: normal affect, normal mood Internal Medicine: Result - Labs CBC & Chem 7: 02/25/17 04:31 02/25/17 04:31 Labs: Short CBC 02/25/17 Range/Units 04:31 WBC 7.1 (4.3-11.1) K/mcL Hgb 11.8 L (12.9-16.9) g/dL Hct 37.5 (37.5-50.1) % Plt Count 177 (140-400) K/mcL Neutrophils # 4.9 (1.6-8.9) K/mcL BMP 02/25/17 04:31 Sodium 141 Potassium 4.3 Chloride 100 Carbon Dioxide 30 H BUN 34 H D Creatinine 2.24 H Glucose 84 Calcium 9.4 Liver Function 02/25/17 Range/Units 04:31 Total Bilirubin 0.8 (0.2-1.2) mg/dL AST 26 (5-34) Units/L ALT 25 (0-55) Units/L Alkaline Phosphatase 88 (38-126) Units/L Albumin 3.8 (3.5-5.0) g/dL - ABG Interpretation ABG results: PT/INR, D-dimer PT 13.7 Seconds (9.4-12.1) H 02/21/17 08:31 - Impressions Impressions Bone Scan Nuclear Medicine 02/24/17 07:41 IMPRESSION: No abnormal uptake to suggest an occult pelvic fracture. D/ / Robin Mari MD / Robin Mari MD Interpreting Provider: Robin Mari MD Consult Discharge Plan - Plan [facility]errals: [facility] [Primary Care Provider] - (patient will follow up with ecf)
[2017-02-25] MEDS ORDERED: diazePAM 5 MG TABLET PO ONE (17:03)
[2017-02-26] MEDS: *HR* Heparin 5,000 UNIT/ML VIAL SQ SCH ×2 (04:52→17:23)
[2017-02-26] MEDS: *HR* OxyCODONE Immed Rel 5 MG TABLET PO PRN ×2 (04:52→14:41)
[2017-02-26 05:48] LABS: Basophils # 0.1 K/mcL (0.0-0.2); Basophils % 0.9 %; Eosinophils # 0.2 K/mcL (0.0-0.6); Eosinophils % 2.2 %; Hematocrit 35.4 % (37.5-50.1); Hemoglobin 11.2 g/dL (12.9-16.9); Immature Granulocytes % 0.3 % (0-4); Lymphocytes # 1.1 K/mcL (0.6-4.6); Lymphocytes % 16.4 %; Mean Corpuscular HGB Conc 31.6 g/dL (31.6-35.5); Mean Corpuscular Hemoglobin 29.6 pg (28.0-33.3); Mean Corpuscular Volume 93.4 fL (83.0-100.0); Monocytes # 0.6 K/mcL (0.0-1.3); Monocytes % 8.9 %; Neutrophils # 4.9 K/mcL (1.6-8.9); Platelet Count 173 K/mcL (140-400); Red Blood Count 3.79 M/mcL (4.19-5.50); Red Cell Distribution Width 13.6 % (11.5-14.5); Segmented Neutrophils % 71.3 %
[2017-02-26 06:07] LABS: Albumin 3.6 g/dL (3.5-5.0); Albumin/Globulin Ratio 1.1 (1.1-2.2); Bilirubin,Total 0.6 mg/dL (0.2-1.2); Calcium 9.3 mg/dL (8.6-10.8); Globulin 3.3 g/dL (2.4-3.5); Magnesium 1.8 mg/dL (1.6-2.6); Phosphorous 4.2 mg/dL (2.3-4.7); Potassium 4.3 mEq/L (3.5-4.5); Total Protein 6.9 g/dL (6.0-8.3)
[2017-02-26] MEDS ORDERED: 0.9 % Sodium Chloride 250 ML IVC PRN (08:15)
--- NOTE | 2017-02-26 08:15 | Nephrology Progress Note ---
Date of Encounter: 02/26/17 Time of Encounter: 08:13 - Assessment and Plan (1) ESRD (end stage renal disease) Current Visit: Yes Status: Chronic The patient will undergo dialysis today. He still is unable to ambulate because of his hip pain. Etiology remains obscure. If he is not had a CT scan of his lumbar spine he may benefit from that. He is unable to undergo an MRI because of the pacemaker and previous shrapnel wounds. (2) Altered mental status Current Visit: Yes Status: Resolved Qualifiers: Altered mental status type: delirium Qualified Code(s): R41.82 - Altered mental status, unspecified (3) Right hip pain Current Visit: Yes Status: Acute Subjective Interval history: The patient continues to have issues with right hip pain and difficulty with weightbearing. Otherwise he says he is doing well. He is scheduled for his usual dialysis today. He did undergo a bone scan for evaluation of occult fracture. That study was unremarkable. Objective - Vital Signs Vital signs: Vital Signs Temp Pulse Resp BP Pulse Ox 02/26/17 07:02 97.9 F 72 16 124/77 92 02/26/17 03:16 97.5 F L 58 18 132/79 94 02/25/17 23:12 97.7 F 70 18 155/81 96 02/25/17 19:00 97.3 F L 71 16 122/75 93 Intake and Output 02/25/17 02/26/17 02/26/17 23:59 07:59 15:59 Intake Total 240 / 240 Output Total 375 / 375 Balance 240 / 240 -375 / -375 Intake: Oral 240 / 240 Output: Urine 375 / 375 Other: Meal Dinner Percent of Meal Consumed 85% Weight 75.3 kg Patient Weight 02/26/17 23:59 Weight 75.3 kg - General Appearance Exam: Patient is alert and oriented. He is in no acute distress. Lungs clear to auscultation. Heart regular rhythm. Abdomen is benign. There is no lower extremity swelling. There is a functioning AV graft in the right upper extremity. - Lab 02/26/17 05:08 02/26/17 05:08 Most recent lab results Calcium 9.3 mg/dL (8.6-10.8) 02/26/17 05:08 Phosphorus 4.2 mg/dL (2.3-4.7) 02/26/17 05:08 Magnesium 1.8 mg/dL (1.6-2.6) 02/26/17 05:08 Consult Discharge Plan - Plan Referrals: [facility] [Primary Care Provider] - (patient will follow up with ecf)
[2017-02-26] MEDS: Aspirin Enteric Coated 81 MG Tablet PO SCH (10:17)
[2017-02-26] MEDS: BuPROPion SR (12 HR) 150 MG TABLET PO SCH ×2 (10:17→21:29)
[2017-02-26] MEDS: Cholecalciferol (D-3) 1,000 UNIT TABLET PO SCH (10:18)
[2017-02-26] MEDS: Gabapentin 300 MG CAPSULE PO SCH ×3 (10:18→21:29)
[2017-02-26] MEDS ORDERED: diazePAM 2 MG TABLET PO PRN (11:43)
--- NOTE | 2017-02-26 12:29 | Internal Med Progress Note ---
Date of Encounter: 02/26/17 Time of Encounter: 12:27 - Assessment and plan (1) Right hip pain Current Visit: Yes Status: Acute Assessment and plan: right hip pain/lumbar spondylosis: CT right hip is negative for fracture. CT lumbar spine showed moderate lumbar canal spinal canal stenosis as well as bilateral L4-5 and L5-S1 lumbar radiculopathy/foramen stenosis. Right hip examined. Full range of motion and no pain. However he cannot bear any weight on it when he stands up orthopedics has seen him and is concerned for sacral fracture and bone scan has been ordered as patient cannot have MRI. Bone scan negative for sacral fracture Pt reports of significant pain relief with Valium, will continue Valium 2mg PO TID PRN and consultation with Dr. Winslow requested. PT OT is consulted consulted: ECF recommended (2) Urinary tract infection Current Visit: Yes Status: Acute Assessment and plan: continue abx for a total of 7 days Day 6/7 Qualifiers: Urinary tract infection type: site unspecified Hematuria presence: with hematuria Qualified Code(s): N39.0 - Urinary tract infection, site not specified; R31.9 - Hematuria, unspecified; R31.9 - Hematuria, unspecified (3) Altered mental status Current Visit: Yes Status: Resolved Assessment and plan: AAO x 3 Could be metabolic encephalopathy secondary to UTI versus iatrogenic secondary to Flexeril and to [place]. D/C flexeril continue [place] Head CT is reported negative. Qualifiers: Altered mental status type: delirium Qualified Code(s): R41.82 - Altered mental status, unspecified (4) ESRD (end stage renal disease) Current Visit: Yes Status: Chronic Assessment and plan: continue HD as per nephro nephro on board and consultation appreciated s/p HD today (02/26/17) HD on MWF (5) Metabolic encephalopathy Current Visit: No Status: Resolved (6) DVT prophylaxis Current Visit: No Status: Acute Assessment and plan: Heparin SQ (7) Atrial fibrillation Current Visit: Yes Status: Acute Assessment and plan: S/p AV node ablation and BiV/ICD placement. Is not anticoagulated secondary to history of GI bleed Continue home carvedilol and ASA Qualifiers: Atrial fibrillation type: chronic Qualified Code(s): I48.2 - Chronic atrial fibrillation - Subjective Interval history: Pt seen and examined at bedside. Resting in bed and is s/p HD today (02/26/17). He received a dose of Valium PO yesterday evening and states it provided him with significant relief and helped him sleep throughout the night. CT L spine reported Central spinal canal narrowing is greatest at L4-L5 which is moderate in degree. Multilevel foraminal narrowing, greatest bilaterally at L4-L5, and L5-S1. Consultation with Dr. Winslow requested given severity of pain. Will continue low dose PO valium at this time PT evaluation recommending ECF social work administrator consultation requested for ECF placement. - Constitutional Vitals: Temp Pulse Resp BP Pulse Ox 97.4 F L 72 17 154/54 92 02/26/17 11:25 02/26/17 07:02 02/26/17 11:25 02/26/17 11:25 02/26/17 07:02 General appearance: Present: cooperative, A&O X 3, pleasant, no acute distress, answers questions appropriately - Head Head exam: Present: atraumatic, normocephalic - Eye Eye exam: Present: conjuntiva pink, sclera anicteric - Respiratory Respiratory exam: Present: CTAB. Absent: respiratory distress, wheezes - Cardiovascular Cardiovascular exam: Present: RRR, +S1, +S2. Absent: diastolic murmur, gallop, rubs, systolic murmur - GI/Abdominal GI/Abdominal exam: Present: normal bowel sounds, soft, no peritoneal signs. Absent: distended, tenderness - Extremities Exam Extremities exam: Present: full ROM, warm, radial pulses palpable and symmetrical. Absent: calf tenderness - Neurological Exam Neurological exam: Present: alert, oriented X3 - Psychiatric Psychiatric exam: Present: normal affect, normal mood Internal Medicine: Result - Labs CBC & Chem 7: 02/26/17 05:08 02/26/17 05:08 Labs: Short CBC 02/26/17 Range/Units 05:08 WBC 6.9 (4.3-11.1) K/mcL Hgb 11.2 L (12.9-16.9) g/dL Hct 35.4 L (37.5-50.1) % Plt Count 173 (140-400) K/mcL Neutrophils # 4.9 (1.6-8.9) K/mcL BMP 02/26/17 05:08 Sodium 139 Potassium 4.3 Chloride 102 Carbon Dioxide 27 BUN 41 H Creatinine 2.48 H Glucose 95 Calcium 9.3 Liver Function 02/26/17 Range/Units 05:08 Total Bilirubin 0.6 (0.2-1.2) mg/dL AST 21 (5-34) Units/L ALT 22 (0-55) Units/L Alkaline Phosphatase 86 (38-126) Units/L Albumin 3.6 (3.5-5.0) g/dL - ABG Interpretation ABG results: PT/INR, D-dimer PT 13.7 Seconds (9.4-12.1) H 02/21/17 08:31 Consult Discharge Plan - Plan [facility]errals: [facility] [Primary Care Provider] - (patient will follow up with ecf)
--- NOTE | 2017-02-26 13:04 | Spinal Consult Note ---
Date of Encounter: 02/26/17 Time of Encounter: 13:02 Assessment and Plan (1) Acute lumbar myofascial strain Current Visit: Yes Status: Acute On exam he is afebrile vital signs stable. He is neurovascularly intact with regard to his bilateral upper and lower extremities. His hips move symmetrically. There is no pain with passive external or internal rotation of the hip. There is no pain with axial loading of the hip. He has tenderness to palpation over the right posterior superior iliac spine. He has some palpable spasm in the lower lumbosacral musculature. He has no clonus. Hip radiographs are negative for hip fracture. There is no associated pelvic or sacral fracture noted. Bone scan is negative for hip fracture, or pelvic or sacral fracture. CT scan is notable for multilevel degenerative changes and lumbar stenosis. Impression: 1) acute lumbar strain with myofascial component. 2) lumbar stenosis Plan: Suggest continue analgesics including muscle relaxers such as Valium and cyclobenzaprine. He should mobilize as tolerated. He would benefit with outpatient consultation with physiatry for possible lumbar epidural steroid injections or trigger point injections over the posterior superior iliac spine. There is no indications for acute surgical intervention. He will need to be in a rehabilitative program until his functional mobility improves. Qualifiers: Encounter type: initial encounter Qualified Code(s): S39.012A - Strain of muscle, fascia and tendon of lower back, initial encounter History of Present Illness Chief complaint: Back pain after stepping awkwardly HPI: Mr. Lee is a 71 year old male Who took a misstep approximately a week ago and experienced severe back pain with weightbearing. Pain is located in the posterior hip region. He was admitted to the hospitalist service with mental status changes and urinary tract infection. Orthopedics is also been consult is and have ruled out hip pathology with x-rays and bone scan. We are asked to see regarding spinal etiology for pain. Denies fevers or chills. His symptoms have improved somewhat with Valium. Past Med Surg Social Fam HX - Past Medical History Medical history: cancer (bladder), CHF, COPD, diabetes, GERD, hyperlipidemia, hypertension, renal disease (ESRD on HD, follows with Dr. Campbell), TIA Psychiatric history: depression, PTSD - Past Surgical History Surgical History: pacemaker/AICD, other (dialysis fistula, bladder surgery for cancer) - Social History Smoking Status: Former smoker (quit 20 years ago) Alcohol use: none Drug use: none - Family History Mother Living Status: Hx Family Cardiac Disorders: Yes Father Living Status: Hx Family Cardiac Disorders: Yes Medications and Allergies Acetaminophen [Tylenol] 650 mg PO PRN PRN 02/26/16 [History] Aspirin Enteric Coated [Aspirin EC] 81 mg PO DAILY 02/26/16 [History] Atorvastatin [Lipitor] 40 mg PO QPM 02/26/16 [History] BuPROPion SR (12 HR) [Wellbutrin SR] 150 mg PO BID 02/26/16 [History] Carvedilol [Coreg] 12.5 mg PO BID 02/26/16 [History] Ergocalciferol (VITAMIN D2) [Vitamin D] 800 unit PO BID 02/26/16 [History] Ethyl Chloride 2 spray TP AD MDD Prior to Dialysis 02/26/16 [History] Hypromellose [Pure & Gentle Eye Drops] 1 drop BOTH EYES QID 02/26/16 [History] Omeprazole [PriLOSEC] 40 mg PO DAILY 02/26/16 [History] Oxybutynin Chloride [Ditropan Xl] 20 mg PO DAILY 02/26/16 [History] Oxycodone HCl 10 mg PO BID 02/26/16 [History] Sertraline [Zoloft] 100 mg PO QAM 02/26/16 [History] TraZODone 50 mg PO HS PRN 02/26/16 [History] Albuterol Sulfate [Albuterol Inhaler] 2 puff IH Q6H PRN 02/21/17 [History] Gabapentin [Neurontin] 300 mg PO TID 02/21/17 [History] 3 Allergy/AdvReac Type Severity Reaction Status Date / Time gemfibrozil Allergy See Verified 02/21/17 08:21 Comments Terazosin Allergy See Verified 02/21/17 08:21 Comments Results - Labs Result Diagrams: 02/26/17 05:08 02/26/17 05:08 Labs: Abnormal lab results RBC 3.79 M/mcL (4.19-5.50) L 02/26/17 05:08 Hgb 11.2 g/dL (12.9-16.9) L 02/26/17 05:08 Hct 35.4 % (37.5-50.1) L 02/26/17 05:08 PT 13.7 Seconds (9.4-12.1) H 02/21/17 08:31 BUN 41 mg/dL (8-26) H 02/26/17 05:08 Creatinine 2.48 mg/dL (0.72-1.25) H 02/26/17 05:08 Est GFR ( Amer) 31 (> 60) L 02/26/17 05:08 Est GFR (Non-Af Amer) 26 (> 60) L 02/26/17 05:08 Urine Protein 30 mg/dL (Neg-Trace) H 02/21/17 08:30 Urine Blood Moderate (Negative) H 02/21/17 08:30 Ur Leukocyte Esterase Small (Negative) H 02/21/17 08:30 Urine Microscopic RBC 30-50 per hpf (0-3) H 02/21/17 08:30 Urine Microscopic WBC 30-50 per hpf (0-3) H 02/21/17 08:30 Ur Squamous Epith Cells Many per lpf (None-Few) H 02/21/17 08:30 Ur Culture Indicated? YES (NO) A 02/21/17 08:30 H & H 02/26/17 Range/Units 05:08 Hgb 11.2 L (12.9-16.9) g/dL Hct 35.4 L (37.5-50.1) % All other labs normal. Consult Discharge Plan - Plan [facility]errals: [facility] [Primary Care Provider[facility] - (patient will follow up with ecf)
[2017-02-26] MEDS ORDERED: 0.9 % Sodium Chloride 1,000 ML ONE (15:36)
[2017-02-26] MEDS: diazePAM 5 MG TABLET PO PRN (16:42)
[2017-02-27 05:41] LABS: Basophils # 0.1 K/mcL (0.0-0.2); Basophils % 0.9 %; Eosinophils # 0.2 K/mcL (0.0-0.6); Eosinophils % 2.5 %; Hematocrit 36.9 % (37.5-50.1); Hemoglobin 11.9 g/dL (12.9-16.9); Lymphocytes # 1.4 K/mcL (0.6-4.6); Mean Corpuscular HGB Conc 32.2 g/dL (31.6-35.5); Mean Corpuscular Hemoglobin 30.1 pg (28.0-33.3); Mean Corpuscular Volume 93.2 fL (83.0-100.0); Mean Platelet Volume 10.2 fL (9.4-12.4); Monocytes # 0.8 K/mcL (0.0-1.3); Monocytes % 10.4 %; Neutrophils # 5.5 K/mcL (1.6-8.9); Platelet Count 160 K/mcL (140-400); Red Blood Count 3.96 M/mcL (4.19-5.50); Red Cell Distribution Width 13.7 % (11.5-14.5); Segmented Neutrophils % 68.2 %
[2017-02-27 05:55] LABS: Magnesium 1.8 mg/dL (1.6-2.6); Phosphorous 3.8 mg/dL (2.3-4.7)
[2017-02-27 05:56] LABS: Albumin 3.6 g/dL (3.5-5.0); Albumin/Globulin Ratio 1.1 (1.1-2.2); Bilirubin,Total 0.6 mg/dL (0.2-1.2); Calcium 9.5 mg/dL (8.6-10.8); Globulin 3.3 g/dL (2.4-3.5); Potassium 4.8 mEq/L (3.5-4.5); Total Protein 6.9 g/dL (6.0-8.3)
[2017-02-27] MEDS: *HR* Heparin 5,000 UNIT/ML VIAL SQ SCH ×2 (06:19→17:32)
[2017-02-27] MEDS: Aspirin Enteric Coated 81 MG Tablet PO SCH (09:24)
[2017-02-27] MEDS: Cholecalciferol (D-3) 1,000 UNIT TABLET PO SCH (09:24)
[2017-02-27] MEDS: Gabapentin 300 MG CAPSULE PO SCH ×3 (09:24→21:20)
[2017-02-27] MEDS: BuPROPion SR (12 HR) 150 MG TABLET PO SCH ×2 (09:25→21:20)
--- NOTE | 2017-02-27 10:43 | Nephrology Progress Note ---
Date of Encounter: 02/27/17 Time of Encounter: 10:15 - Assessment and Plan (1) ESRD (end stage renal disease) Current Visit: Yes Status: Chronic Altered mental status changes most likely to start of cyclobenzaprine and increase in hydrocodone. Urine-no growth, final. Spinal stenosis on CT. No HD today, keeping MWF schedule. Subjective Interval history: Laying in bed, denies pain when laying still. at bedside. Objective - Vital Signs Vital signs: Vital Signs Temp Pulse Resp BP Pulse Ox 02/27/17 06:49 97.6 F 69 18 155/76 96 02/27/17 03:17 98.2 F 72 18 155/85 94 02/26/17 23:12 97.4 F L 70 18 149/85 94 02/26/17 21:34 97 02/26/17 18:21 98.5 F 70 18 144/82 97 02/26/17 16:07 98.5 F 71 16 151/74 95 02/26/17 11:25 97.4 F L 17 154/54 02/26/17 11:15 136/71 02/26/17 10:45 153/89 Intake and Output 02/26/17 02/27/17 02/27/17 23:59 07:59 15:59 Intake Total 340 / 340 220 / 220 Output Total 300 / 300 Balance 340 / 340 -300 / -300 220 / 220 Intake: IV Fluids 100 / 100 100 / 100 Rocephin 1,000 MG In Dextrose 5 100 / 100 100 / 100 % (Minibag+) 100 ML 100 ML @ 200 mls/hr IVPB Q24H [facility] Rx#: [id number] Oral 240 / 240 120 / 120 Output: Urine 300 / 300 Other: Meal Dinner Breakfast Percent of Meal Consumed 65% 10% Weight 74.3 kg Patient Weight 02/27/17 23:59 Weight 74.3 kg - General Appearance General appearance: Present: well-developed, well-nourished, appears started age EENT: Present: mucous membranes moist Neck: Present: no JVD Respiratory: Present: clear Cardiology: Present: no edema, regular rate, regular rhythm Gastrointestinal: Present: normoactive bowel sounds, no tenderness Integumentary: Present: warm and dry Neurologic: Present: alert and oriented x3 Psychiatric: Present: mood/affect appropriate, cooperative - Lab 02/27/17 05:15 02/27/17 05:15 Most recent lab results Calcium 9.5 mg/dL (8.6-10.8) 02/27/17 05:15 Phosphorus 3.8 mg/dL (2.3-4.7) 02/27/17 05:15 Magnesium 1.8 mg/dL (1.6-2.6) 02/27/17 05:15 Consult Discharge Plan - Plan [facility]errals: [facility] [Primary Care Provider] - (patient will follow up with ecf)
[2017-02-27] MEDS: diazePAM 5 MG TABLET PO PRN (14:50)
--- NOTE | 2017-02-27 15:08 | Internal Med Progress Note ---
Date of Encounter: 02/27/17 Time of Encounter: 15:06 - Assessment and plan (1) Right hip pain Current Visit: Yes Status: Acute Assessment and plan: right hip pain/lumbar spondylosis: CT right hip is negative for fracture. CT lumbar spine showed moderate lumbar canal spinal canal stenosis as well as bilateral L4-5 and L5-S1 lumbar radiculopathy/foramen stenosis. Right hip examined. Full range of motion and no pain. However he cannot bear any weight on it when he stands up orthopedics has seen him and is concerned for sacral fracture and bone scan has been ordered as patient cannot have MRI. Bone scan negative for sacral fracture Pt reports of significant pain relief with Valium, will continue Valium 5mg PO TID PRN Consultation with Dr. Winslow appreciated, outpatient epidural injections recommended PT OT is consulted consulted: ECF recommended (2) Urinary tract infection Current Visit: Yes Status: Acute Assessment and plan: continue abx for a total of 7 days Day 11/29 Qualifiers: Urinary tract infection type: site unspecified Hematuria presence: with hematuria Qualified Code(s): N39.0 - Urinary tract infection, site not specified; R31.9 - Hematuria, unspecified; R31.9 - Hematuria, unspecified (3) Altered mental status Current Visit: Yes Status: Resolved Assessment and plan: AAO x 3 Could be metabolic encephalopathy secondary to UTI versus iatrogenic secondary to Flexeril and to [place]. D/Raudel flexeril continue [place] Head CT is reported negative. Qualifiers: Altered mental status type: delirium Qualified Code(s): R41.82 - Altered mental status, unspecified (4) ESRD (end stage renal disease) Current Visit: Yes Status: Chronic Assessment and plan: continue HD as per nephro nephro on board and consultation appreciated s/p HD (02/26/17) HD on MWF (5) Metabolic encephalopathy Current Visit: No Status: Resolved (6) DVT prophylaxis Current Visit: No Status: Acute Assessment and plan: Heparin SQ (7) Atrial fibrillation Current Visit: Yes Status: Acute Assessment and plan: S/p AV node ablation and BiV/ICD placement. Is not anticoagulated secondary to history of GI bleed Continue home carvedilol and ASA Qualifiers: Atrial fibrillation type: chronic Qualified Code(s): I48.2 - Chronic atrial fibrillation - Subjective Interval history: Pt seen and examined at bedside. Resting in bed and is s/p HD today (02/26/17). Resting in chair and reports of getting better relieve with Valium. CT L spine reported Central spinal canal narrowing is greatest at L4-L5 which is moderate in degree. Multilevel foraminal narrowing, greatest bilaterally at L4-L5, and L5-S1. Consultation with Dr. Winslow requested given severity of pain. Will continue PO valium at this time PT evaluation recommending ECF social media campaign manager consultation requested for ECF placement. D/c pending ECF placement - Constitutional Vitals: Temp Pulse Resp BP Pulse Ox 98.2 F 82 18 143/80 96 02/27/17 10:41 02/27/17 10:41 02/27/17 10:41 02/27/17 10:41 02/27/17 10:41 General appearance: Present: cooperative, A&O X 3, pleasant, no acute distress, answers questions appropriately - Head Head exam: Present: atraumatic, normocephalic - Eye Eye exam: Present: conjuntiva pink, sclera anicteric - Respiratory Respiratory exam: Present: CTAB. Absent: respiratory distress, wheezes - Cardiovascular Cardiovascular exam: Present: RRR, +S1, +S2. Absent: diastolic murmur, gallop, rubs, systolic murmur - GI/Abdominal GI/Abdominal exam: Present: normal bowel sounds, soft. Absent: distended, tenderness - Extremities Exam Extremities exam: Present: warm, radial pulses palpable and symmetrical. Absent : calf tenderness, pedal edema - Neurological Exam Neurological exam: Present: alert, oriented X3 - Psychiatric Psychiatric exam: Present: normal affect, normal mood Internal Medicine: Result - Labs CBC & Chem 7: 02/27/17 05:15 02/27/17 05:15 Labs: Short CBC 02/27/17 Range/Units 05:15 WBC 8.0 (4.3-11.1) K/mcL Hgb 11.9 L (12.9-16.9) g/dL Hct 36.9 L (37.5-50.1) % Plt Count 160 (140-400) K/mcL Neutrophils # 5.5 (1.6-8.9) K/mcL BMP 02/27/17 05:15 Sodium 141 Potassium 4.8 H Chloride 106 Carbon Dioxide 25 BUN 29 H D Creatinine 2.11 H Glucose 94 Calcium 9.5 Liver Function 02/27/17 Range/Units 05:15 Total Bilirubin 0.6 (0.2-1.2) mg/dL AST 18 (5-34) Units/L ALT 21 (0-55) Units/L Alkaline Phosphatase 89 (38-126) Units/L Albumin 3.6 (3.5-5.0) g/dL - ABG Interpretation ABG results: PT/INR, D-dimer PT 13.7 Seconds (9.4-12.1) H 02/21/17 08:31 Consult Discharge Plan - Plan [facility]errals: [facility] [Primary Care Provider] - (patient will follow up with ecf)
[2017-02-28] MEDS: *HR* OxyCODONE Immed Rel 5 MG TABLET PO PRN ×3 (02:58→20:46)
[2017-02-28 05:48] LABS: Basophils # 0.1 K/mcL (0.0-0.2); Basophils % 0.8 %; Eosinophils # 0.2 K/mcL (0.0-0.6); Hematocrit 35.8 % (37.5-50.1); Hemoglobin 11.1 g/dL (12.9-16.9); Immature Granulocytes % 0.4 % (0-4); Lymphocytes # 1.4 K/mcL (0.6-4.6); Lymphocytes % 19.8 %; Mean Corpuscular Volume 93.5 fL (83.0-100.0); Mean Platelet Volume 9.7 fL (9.4-12.4); Monocytes # 0.6 K/mcL (0.0-1.3); Monocytes % 8.6 %; Neutrophils # 4.9 K/mcL (1.6-8.9); Platelet Count 177 K/mcL (140-400); Red Blood Count 3.83 M/mcL (4.19-5.50); Red Cell Distribution Width 13.8 % (11.5-14.5); Segmented Neutrophils % 67.4 %
[2017-02-28 06:08] LABS: Calcium 9.6 mg/dL (8.6-10.8); Magnesium 1.7 mg/dL (1.6-2.6); Phosphorous 3.6 mg/dL (2.3-4.7); Potassium 4.5 mEq/L (3.5-4.5)
[2017-02-28] MEDS: *HR* Heparin 5,000 UNIT/ML VIAL SQ SCH ×2 (06:33→18:08)
[2017-02-28] MEDS ORDERED: 0.9 % Sodium Chloride 2,000 ML ONE (06:56)
[2017-02-28] MEDS ORDERED: 0.9 % Sodium Chloride 250 ML IVC PRN (07:38)
[2017-02-28] MEDS ORDERED: 0.9 % Sodium Chloride 1,000 ML PRIME SCH (07:45)
[2017-02-28] MEDS: Gabapentin 300 MG CAPSULE PO SCH ×3 (08:12→20:46)
[2017-02-28] MEDS: Aspirin Enteric Coated 81 MG Tablet PO SCH (08:12)
[2017-02-28] MEDS: BuPROPion SR (12 HR) 150 MG TABLET PO SCH ×2 (08:13→20:46)
[2017-02-28] MEDS: Cholecalciferol (D-3) 1,000 UNIT TABLET PO SCH (08:13)
--- NOTE | 2017-02-28 10:22 | Nephrology Progress Note ---
Date of Encounter: 02/28/17 Time of Encounter: 10:10 - Assessment and Plan (1) ESRD (end stage renal disease) Current Visit: Yes Status: Chronic Altered mental status changes most likely to start of cyclobenzaprine and increase in hydrocodone. Urine-no growth, final. Spinal stenosis on CT. HD today , keeping MWF schedule. Orders given. Subjective Interval history: Seen on HD. States trying to place in rehab facility. Objective - Vital Signs Vital signs: Vital Signs Temp Pulse Resp BP Pulse Ox 02/28/17 09:50 116/80 02/28/17 09:35 128/75 02/28/17 09:20 97.4 F L 16 105/69 02/28/17 06:44 97.6 F 73 17 145/83 95 02/28/17 04:21 97.7 F 69 19 165/71 95 02/27/17 23:05 97.4 F L 70 18 122/74 93 02/27/17 18:47 98.1 F 74 16 145/83 94 02/27/17 15:34 97.7 F 69 19 162/98 95 02/27/17 10:41 98.2 F 82 18 143/80 96 Intake and Output 02/27/17 02/28/17 02/28/17 23:59 07:59 15:59 Intake Total 720 / 720 Output Total 100 / 100 325 / 325 125 / 125 Balance -100 / -100 -325 / -325 595 / 595 Intake: Oral 120 / 120 Intake, Rinseback and Flushes 600 / 600 Output: Urine 100 / 100 325 / 325 125 / 125 Other: Meal Breakfast Percent of Meal Consumed 60% Weight 74.2 kg Hemodialysis Net Fluid Removed 653 (mL) Patient Weight 02/28/17 23:59 Weight 74.2 kg - General Appearance General appearance: Present: well-developed, well-nourished, appears started age EENT: Present: mucous membranes moist Neck: Present: no JVD Respiratory: Present: clear Cardiology: Present: no edema, regular rate, regular rhythm Gastrointestinal: Present: normoactive bowel sounds, no tenderness Integumentary: Present: warm and dry Neurologic: Present: alert and oriented x3 Psychiatric: Present: mood/affect appropriate, cooperative - Lab 02/28/17 05:26 02/28/17 05:26 Most recent lab results Calcium 9.6 mg/dL (8.6-10.8) 02/28/17 05:26 Phosphorus 3.6 mg/dL (2.3-4.7) 02/28/17 05:26 Magnesium 1.7 mg/dL (1.6-2.6) 02/28/17 05:26 Consult Discharge Plan - Plan Referrals: [facility] [Primary Care Provider] - (patient will follow up with ecf)
[2017-02-28] MEDS ORDERED: diazePAM 5 MG TABLET PO PRN (10:42)
--- NOTE | 2017-02-28 14:28 | Internal Med Progress Note ---
Date of Encounter: 02/28/17 Time of Encounter: 14:20 - Assessment and plan (1) Right hip pain Current Visit: Yes Status: Acute Assessment and plan: right hip pain/lumbar spondylosis: CT right hip is negative for fracture. CT lumbar spine showed moderate lumbar canal spinal canal stenosis as well as bilateral L4-5 and L5-S1 lumbar radiculopathy/foramen stenosis. Right hip examined. Full range of motion and no pain. However he cannot bear any weight on it when he stands up orthopedics has seen him and is concerned for sacral fracture and bone scan has been ordered as patient cannot have MRI. Bone scan negative for sacral fracture Pt reports of significant pain relief with Valium pt reported to be drowsy with Valium, will decrease the frequency, changed to Valium 5mg PO BID PRN Consultation with Dr. Winslow appreciated, outpatient epidural injections recommended PT OT is consulted consulted: ECF recommended discharge pending ECF placement (2) Urinary tract infection Current Visit: Yes Status: Resolved Assessment and plan: Pt finished 7 days of IV abx (last day of abx: 02/27/17) Qualifiers: Urinary tract infection type: site unspecified Hematuria presence: with hematuria Qualified Code(s): N39.0 - Urinary tract infection, site not specified; R31.9 - Hematuria, unspecified; R31.9 - Hematuria, unspecified (3) Altered mental status Current Visit: Yes Status: Resolved Assessment and plan: AAO x 3 Could be metabolic encephalopathy secondary to UTI versus iatrogenic secondary to Flexeril and to [place]. flexeril has been discontinued continue [place] Head CT is reported negative. Qualifiers: Altered mental status type: delirium Qualified Code(s): R41.0 - Disorientation, unspecified (4) ESRD (end stage renal disease) Current Visit: Yes Status: Chronic Assessment and plan: continue HD as per nephro nephro on board and consultation appreciated s/p HD (02/28/17) HD on MWF (5) Metabolic encephalopathy Current Visit: No Status: Resolved (6) DVT prophylaxis Current Visit: No Status: Acute Assessment and plan: Heparin SQ (7) Atrial fibrillation Current Visit: Yes Status: Acute Assessment and plan: S/p AV node ablation and BiV/ICD placement. Is not anticoagulated secondary to history of GI bleed Continue home carvedilol and ASA Qualifiers: Atrial fibrillation type: chronic Qualified Code(s): I48.2 - Chronic atrial fibrillation - Subjective Interval history: Pt seen and examined at bedside. Resting in bed and is s/p HD today (02/28/17). Resting in chair and reports of getting better relieve with Valium. CT L spine reported Central spinal canal narrowing is greatest at L4-L5 which is moderate in degree. Multilevel foraminal narrowing, greatest bilaterally at L4-L5, and L5-S1. outpatient follow up recommended by Dr. Winslow for epidural injections No overnight issues reported PT evaluation recommending ECF social media senior associate consultation requested for ECF placement. D/c pending ECF placement - Constitutional Vitals: Temp Pulse Resp BP Pulse Ox 97.3 F L 73 16 114/68 95 02/28/17 12:33 02/28/17 06:44 02/28/17 12:33 02/28/17 12:33 02/28/17 06:44 General appearance: Present: cooperative, A&O X 3, pleasant, no acute distress, answers questions appropriately - Head Head exam: Present: atraumatic, normocephalic - Eye Eye exam: Present: conjuntiva pink, sclera anicteric - Respiratory Respiratory exam: Present: CTAB. Absent: accessory muscle use, rales, rhonchi, wheezes - Cardiovascular Cardiovascular exam: Present: RRR, +S1, +S2. Absent: diastolic murmur, gallop, rubs, systolic murmur - GI/Abdominal GI/Abdominal exam: Present: normal bowel sounds, soft, no peritoneal signs. Absent: distended, tenderness - Extremities Exam Extremities exam: Present: warm, radial pulses palpable and symmetrical. Absent : calf tenderness - Neurological Exam Neurological exam: Present: alert, oriented X3 - Psychiatric Psychiatric exam: Present: normal affect, normal mood Internal Medicine: Result - Labs CBC & Chem 7: 02/28/17 05:26 02/28/17 05:26 Labs: Short CBC 02/28/17 Range/Units 05:26 WBC 7.2 (4.3-11.1) K/mcL Hgb 11.1 L (12.9-16.9) g/dL Hct 35.8 L (37.5-50.1) % Plt Count 177 (140-400) K/mcL Neutrophils # 4.9 (1.6-8.9) K/mcL BMP 02/28/17 05:26 Sodium 142 Potassium 4.5 Chloride 107 Carbon Dioxide 26 BUN 35 H Creatinine 2.30 H Glucose 95 Calcium 9.6 - ABG Interpretation ABG results: PT/INR, D-dimer PT 13.7 Seconds (9.4-12.1) H 02/21/17 08:31 Consult Discharge Plan - Plan [facility]errals: [facility] [Primary Care Provider] - (patient will follow up with ecf)
[2017-03-01] MEDS: *HR* Heparin 5,000 UNIT/ML VIAL SQ SCH ×2 (04:54→17:25)
[2017-03-01] MEDS: *HR* OxyCODONE Immed Rel 5 MG TABLET PO PRN ×2 (04:55→17:30)
[2017-03-01 07:14] LABS: Basophils # 0.1 K/mcL (0.0-0.2); Basophils % 0.9 %; Eosinophils # 0.3 K/mcL (0.0-0.6); Eosinophils % 3.1 %; Hematocrit 38.7 % (37.5-50.1); Hemoglobin 12.4 g/dL (12.9-16.9); Immature Granulocytes % 0.4 % (0-4); Lymphocytes # 1.4 K/mcL (0.6-4.6); Lymphocytes % 17.9 %; Mean Corpuscular Volume 93.7 fL (83.0-100.0); Mean Platelet Volume 9.8 fL (9.4-12.4); Monocytes # 0.9 K/mcL (0.0-1.3); Monocytes % 11.3 %; Neutrophils # 5.4 K/mcL (1.6-8.9); Platelet Count 173 K/mcL (140-400); Red Blood Count 4.13 M/mcL (4.19-5.50); Segmented Neutrophils % 66.4 %
[2017-03-01 07:39] LABS: Calcium 9.8 mg/dL (8.6-10.8); Magnesium 1.8 mg/dL (1.6-2.6); Phosphorous 3.9 mg/dL (2.3-4.7); Potassium 4.2 mEq/L (3.5-4.5)
[2017-03-01] MEDS: Cholecalciferol (D-3) 1,000 UNIT TABLET PO SCH (08:37)
[2017-03-01] MEDS: Gabapentin 300 MG CAPSULE PO SCH ×3 (08:37→21:30)
[2017-03-01] MEDS: Aspirin Enteric Coated 81 MG Tablet PO SCH (08:37)
[2017-03-01] MEDS: BuPROPion SR (12 HR) 150 MG TABLET PO SCH ×2 (08:37→21:30)
--- NOTE | 2017-03-01 09:13 | Nephrology Progress Note ---
Date of Encounter: 03/01/17 Time of Encounter: 09:00 - Assessment and Plan (1) ESRD (end stage renal disease) Current Visit: Yes Status: Chronic Altered mental status changes most likely to start of cyclobenzaprine and increase in hydrocodone. Urine-no growth, final. Spinal stenosis on CT. HD on Friday, keeping MWF schedule. Orders given. Subjective Interval history: Sitting up in chair. at bedside. States pain somewhat better. states bed available at [place] on Friday. Objective - Vital Signs Vital signs: Vital Signs Temp Pulse Resp BP Pulse Ox 03/01/17 07:49 98.6 F 72 17 118/63 92 03/01/17 05:06 97.8 F 70 16 157/80 94 02/28/17 23:19 97.9 F 70 16 125/89 96 02/28/17 18:02 98.1 F 72 17 115/73 93 02/28/17 15:40 98.1 F 73 17 120/73 94 02/28/17 12:33 97.3 F L 16 114/68 02/28/17 12:20 110/66 02/28/17 12:05 129/91 02/28/17 11:50 112/74 02/28/17 11:35 111/66 02/28/17 11:20 110/75 02/28/17 11:05 113/78 02/28/17 10:50 106/65 02/28/17 10:35 113/81 02/28/17 10:20 114/73 02/28/17 10:05 104/68 02/28/17 09:50 116/80 02/28/17 09:35 128/75 02/28/17 09:20 97.4 F L 16 105/69 Intake and Output 02/28/17 03/01/17 03/01/17 23:59 07:59 15:59 Intake Total 240 / 240 300 / 300 240 / 240 Output Total 900 / 900 Balance 240 / 240 -600 / -600 240 / 240 Intake: Oral 240 / 240 300 / 300 240 / 240 Output: Urine 900 / 900 Other: Meal Dinner Breakfast Percent of Meal Consumed 100% 100% Weight 63.866 kg Patient Weight 03/01/17 23:59 Weight 63.866 kg - General Appearance General appearance: Present: well-developed, well-nourished, appears started age EENT: Present: mucous membranes moist Neck: Present: no JVD Respiratory: Present: clear Cardiology: Present: no edema, regular rate, regular rhythm Gastrointestinal: Present: normoactive bowel sounds, no tenderness Integumentary: Present: warm and dry Neurologic: Present: alert and oriented x3 Psychiatric: Present: mood/affect appropriate, cooperative - Lab 03/01/17 06:45 03/01/17 06:45 Most recent lab results Calcium 9.8 mg/dL (8.6-10.8) 03/01/17 06:45 Phosphorus 3.9 mg/dL (2.3-4.7) 03/01/17 06:45 Magnesium 1.8 mg/dL (1.6-2.6) 03/01/17 06:45 Consult Discharge Plan - Plan Referrals: [facility] [Primary Care Provider] - (patient will follow up with ecf)
--- NOTE | 2017-03-01 11:04 | Internal Med Progress Note ---
Date of Encounter: 03/01/17 Time of Encounter: 11:02 - Assessment and plan (1) Right hip pain Current Visit: Yes Status: Acute Assessment and plan: right hip pain/lumbar spondylosis: CT right hip is negative for fracture. CT lumbar spine showed moderate lumbar canal spinal canal stenosis as well as bilateral L4-5 and L5-S1 lumbar radiculopathy/foramen stenosis. Right hip examined. Full range of motion and no pain. However he cannot bear any weight on it when he stands up orthopedics has seen him and is concerned for sacral fracture and bone scan has been ordered as patient cannot have MRI. Bone scan negative for sacral fracture Pt reports of significant pain relief with Valium, will continue Valium 5mg PO BID PRN Consultation with Dr. Winslow appreciated, outpatient epidural injections recommended PT OT is consulted consulted: ECF recommended discharge pending ECF placement Code(s): M25.551 - Pain in right hip (2) Urinary tract infection Current Visit: Yes Status: Resolved Assessment and plan: Pt finished 7 days of IV abx (last day of abx: 02/27/17) Qualifiers: Urinary tract infection type: site unspecified Hematuria presence: with hematuria Qualified Code(s): N39.0 - Urinary tract infection, site not specified; R31.9 - Hematuria, unspecified; R31.9 - Hematuria, unspecified (3) Altered mental status Current Visit: Yes Status: Resolved Assessment and plan: AAO x 3 Could be metabolic encephalopathy secondary to UTI versus iatrogenic secondary to Flexeril and to [place]. flexeril has been discontinued continue [place] Head CT is reported negative. Qualifiers: Altered mental status type: delirium Qualified Code(s): R41.0 - Disorientation, unspecified (4) ESRD (end stage renal disease) Current Visit: Yes Status: Chronic Assessment and plan: continue HD as per nephro nephro on board and consultation appreciated s/p HD (02/28/17) HD on MWF (5) Metabolic encephalopathy Current Visit: No Status: Resolved (6) DVT prophylaxis Current Visit: No Status: Acute Assessment and plan: Heparin SQ (7) Atrial fibrillation Current Visit: Yes Status: Acute Assessment and plan: S/p AV node ablation and BiV/ICD placement. Is not anticoagulated secondary to history of GI bleed Continue home carvedilol and ASA Qualifiers: Atrial fibrillation type: chronic Qualified Code(s): I48.2 - Chronic atrial fibrillation - Subjective Interval history: Pt seen and examined with present at bedside. Resting in bed and is s/p HD (02/28/17). States he feels better, pain better controlled. Pt encouraged to increase activity as tolerated CT L spine reported Central spinal canal narrowing is greatest at L4-L5 which is moderate in degree. Multilevel foraminal narrowing, greatest bilaterally at L4-L5, and L5-S1. outpatient follow up recommended by Dr. Winslow for epidural injections No overnight issues reported PT evaluation recommending ECF oncology social work consultation requested for ECF placement. D/c pending ECF placement - Constitutional Vitals: Temp Pulse Resp BP Pulse Ox 98.6 F 72 17 118/63 92 03/01/17 07:49 03/01/17 07:49 03/01/17 07:49 03/01/17 07:49 03/01/17 07:49 General appearance: Present: cooperative, A&O X 3, pleasant, no acute distress, answers questions appropriately - Head Head exam: Present: atraumatic, normocephalic - Eye Eye exam: Present: conjuntiva pink, sclera anicteric - Respiratory Respiratory exam: Present: CTAB. Absent: accessory muscle use, rales, rhonchi, wheezes - Cardiovascular Cardiovascular exam: Present: RRR, +S1, +S2. Absent: diastolic murmur, gallop, rubs, systolic murmur - GI/Abdominal GI/Abdominal exam: Present: normal bowel sounds, soft, no peritoneal signs. Absent: distended, tenderness - Extremities Exam Extremities exam: Present: warm, radial pulses palpable and symmetrical. Absent : calf tenderness, cyanotic, pedal edema - Neurological Exam Neurological exam: Present: alert, oriented X3 - Psychiatric Psychiatric exam: Present: normal affect, normal mood Internal Medicine: Result - Labs CBC & Chem 7: 03/01/17 06:45 03/01/17 06:45 Labs: Short CBC 03/01/17 Range/Units 06:45 WBC 8.1 (4.3-11.1) K/mcL Hgb 12.4 L (12.9-16.9) g/dL Hct 38.7 (37.5-50.1) % Plt Count 173 (140-400) K/mcL Neutrophils # 5.4 (1.6-8.9) K/mcL BMP 03/01/17 06:45 Sodium 141 Potassium 4.2 Chloride 103 Carbon Dioxide 30 H BUN 27 H Creatinine 2.45 H Glucose 91 Calcium 9.8 - ABG Interpretation ABG results: PT/INR, D-dimer PT 13.7 Seconds (9.4-12.1) H 02/21/17 08:31 Consult Discharge Plan - Plan [facility]errals: [facility] [Primary Care Provider] - (patient will follow up with ecf)
[2017-03-02] MEDS: *HR* Heparin 5,000 UNIT/ML VIAL SQ SCH ×2 (05:39→17:50)
[2017-03-02 07:35] LABS: Basophils # 0.1 K/mcL (0.0-0.2); Basophils % 0.7 %; Eosinophils # 0.3 K/mcL (0.0-0.6); Eosinophils % 3.8 %; Hematocrit 38.8 % (37.5-50.1); Hemoglobin 12.2 g/dL (12.9-16.9); Immature Granulocytes % 0.5 % (0-4); Lymphocytes # 1.8 K/mcL (0.6-4.6); Lymphocytes % 20.7 %; Mean Corpuscular HGB Conc 31.4 g/dL (31.6-35.5); Mean Corpuscular Hemoglobin 29.3 pg (28.0-33.3); Mean Platelet Volume 9.7 fL (9.4-12.4); Monocytes # 0.9 K/mcL (0.0-1.3); Monocytes % 10.7 %; Neutrophils # 5.5 K/mcL (1.6-8.9); Platelet Count 183 K/mcL (140-400); Red Blood Count 4.17 M/mcL (4.19-5.50); Segmented Neutrophils % 63.6 %
[2017-03-02 08:06] LABS: Calcium 9.5 mg/dL (8.6-10.8); Magnesium 1.7 mg/dL (1.6-2.6); Phosphorous 4.9 mg/dL (2.3-4.7); Potassium 4.5 mEq/L (3.5-4.5)
--- NOTE | 2017-03-02 08:22 | Nephrology Progress Note ---
Date of Encounter: 03/02/17 Time of Encounter: 08:05 - Assessment and Plan (1) ESRD (end stage renal disease) Current Visit: Yes Status: Chronic Altered mental status changes most likely to start of cyclobenzaprine and increase in hydrocodone. Urine-no growth, final. Spinal stenosis on CT. HD on Friday, keeping MWF schedule. Orders given. Subjective Interval history: Sitting on edge of bed, eating breakfast. States is able to move around that pain increases in right hip when standing. States ambulated short distance yesterday. Objective - Vital Signs Vital signs: Vital Signs Temp Pulse Resp BP Pulse Ox 03/02/17 07:52 98.8 F 73 17 141/75 93 03/02/17 03:24 97.9 F 71 18 120/76 94 03/01/17 22:55 98.0 F 71 18 120/74 94 03/01/17 19:00 98.7 F 75 18 127/71 93 03/01/17 16:05 98.0 F 70 17 148/83 94 03/01/17 11:27 97.6 F 71 17 134/77 92 Intake and Output 03/01/17 03/02/17 03/02/17 23:59 07:59 15:59 Intake Total 270 / 270 Output Total 450 / 450 100 / 100 Balance -180 / -180 -100 / -100 Intake: Oral 270 / 270 Output: Urine 450 / 450 100 / 100 Other: Meal Dinner Percent of Meal Consumed 60% Weight 72.2 kg Patient Weight 03/02/17 23:59 Weight 72.2 kg - Lab 03/02/17 06:32 03/02/17 06:32 Most recent lab results Calcium 9.5 mg/dL (8.6-10.8) 03/02/17 06:32 Phosphorus 4.9 mg/dL (2.3-4.7) H 03/02/17 06:32 Magnesium 1.7 mg/dL (1.6-2.6) 03/02/17 06:32 Consult Discharge Plan - Plan [facility]errals: [facility] [Primary Care Provider] - (patient will follow up with ecf)
[2017-03-02] MEDS ORDERED: Sennosides/Docusate Sodium TABLET PO PRN (09:09)
[2017-03-02] MEDS: BuPROPion SR (12 HR) 150 MG TABLET PO SCH ×2 (09:21→21:32)
[2017-03-02] MEDS: *HR* OxyCODONE Immed Rel 5 MG TABLET PO PRN ×2 (09:21→21:32)
[2017-03-02] MEDS: Aspirin Enteric Coated 81 MG Tablet PO SCH (09:21)
[2017-03-02] MEDS: Gabapentin 300 MG CAPSULE PO SCH ×3 (09:21→21:32)
[2017-03-02] MEDS: Cholecalciferol (D-3) 1,000 UNIT TABLET PO SCH (09:21)
--- NOTE | 2017-03-02 10:47 | Internal Med Progress Note ---
Date of Encounter: 03/02/17 Time of Encounter: 10:45 - Assessment and plan (1) Right hip pain Current Visit: Yes Status: Acute Assessment and plan: right hip pain/lumbar spondylosis: CT right hip is negative for fracture. CT lumbar spine showed moderate lumbar canal spinal canal stenosis as well as bilateral L4-5 and L5-S1 lumbar radiculopathy/foramen stenosis. Right hip examined. Full range of motion and no pain. However he cannot bear any weight on it when he stands up orthopedics has seen him and is concerned for sacral fracture and bone scan has been ordered as patient cannot have MRI. Bone scan negative for sacral fracture Pt reports of significant pain relief with Valium, will continue Valium 5mg PO BID PRN Consultation with Dr. Winslow appreciated, outpatient epidural injections recommended Pt reports of having difficulty moving his bowels despite colace. Will d/c colace and start Senna plus 2 tabs PO BID and miralax prn PT OT is consulted consulted: ECF recommended discharge pending ECF placement Code(s): M25.551 - Pain in right hip (2) Urinary tract infection Current Visit: Yes Status: Resolved Assessment and plan: Pt finished 7 days of IV abx (last day of abx: 02/27/17) Qualifiers: Urinary tract infection type: site unspecified Hematuria presence: with hematuria Qualified Code(s): N39.0 - Urinary tract infection, site not specified; R31.9 - Hematuria, unspecified; R31.9 - Hematuria, unspecified (3) Altered mental status Current Visit: Yes Status: Resolved Assessment and plan: AAO x 3 Could be metabolic encephalopathy secondary to UTI versus iatrogenic secondary to Flexeril and to [place]. flexeril has been discontinued continue [place] Head CT is reported negative. Qualifiers: Altered mental status type: delirium Qualified Code(s): R41.0 - Disorientation, unspecified (4) ESRD (end stage renal disease) Current Visit: Yes Status: Chronic Assessment and plan: continue HD as per nephro nephro on board and consultation appreciated s/p HD (02/28/17) HD on MWF (5) Metabolic encephalopathy Current Visit: No Status: Resolved (6) DVT prophylaxis Current Visit: No Status: Acute Assessment and plan: Heparin SQ (7) Atrial fibrillation Current Visit: Yes Status: Acute Assessment and plan: S/p AV node ablation and BiV/ICD placement. Is not anticoagulated secondary to history of GI bleed Continue home carvedilol and ASA Qualifiers: Atrial fibrillation type: chronic Qualified Code(s): I48.2 - Chronic atrial fibrillation - Subjective Interval history: Pt seen and examined with present at bedside. Resting in bed and is s/p HD (02/28/17). States he feels better, pain better controlled. Pt encouraged to increase activity as tolerated CT L spine reported Central spinal canal narrowing is greatest at L4-L5 which is moderate in degree. Multilevel foraminal narrowing, greatest bilaterally at L4-L5, and L5-S1. outpatient follow up recommended by Dr. Winslow for epidural injections No overnight issues reported PT evaluation recommending ECF social science analyst consultation requested for ECF placement. D/c pending ECF placement - Constitutional Vitals: Temp Pulse Resp BP Pulse Ox 98.8 F 73 17 141/75 93 03/02/17 07:52 03/02/17 07:52 03/02/17 07:52 03/02/17 07:52 03/02/17 07:52 General appearance: Present: cooperative, A&O X 3, pleasant, no acute distress, answers questions appropriately - Head Head exam: Present: atraumatic, normocephalic - Eye Eye exam: Present: conjuntiva pink, sclera anicteric - Respiratory Respiratory exam: Present: CTAB. Absent: accessory muscle use, rales, rhonchi, wheezes - Cardiovascular Cardiovascular exam: Present: RRR, +S1, +S2. Absent: diastolic murmur, gallop, rubs, systolic murmur - GI/Abdominal GI/Abdominal exam: Present: normal bowel sounds, soft, no peritoneal signs. Absent: distended, tenderness - Extremities Exam Extremities exam: Present: warm, radial pulses palpable and symmetrical. Absent : calf tenderness, cyanotic, pedal edema - Neurological Exam Neurological exam: Present: alert, oriented X3 - Psychiatric Psychiatric exam: Present: normal affect, normal mood Internal Medicine: Result - Labs CBC & Chem 7: 03/02/17 06:32 03/02/17 06:32 Labs: Short CBC 03/02/17 Range/Units 06:32 WBC 8.7 (4.3-11.1) K/mcL Hgb 12.2 L (12.9-16.9) g/dL Hct 38.8 (37.5-50.1) % Plt Count 183 (140-400) K/mcL Neutrophils # 5.5 (1.6-8.9) K/mcL BMP 03/02/17 06:32 Sodium 139 Potassium 4.5 Chloride 102 Carbon Dioxide 26 BUN 38 H D Creatinine 2.98 H Glucose 84 Calcium 9.5 - ABG Interpretation ABG results: PT/INR, D-dimer PT 13.7 Seconds (9.4-12.1) H 02/21/17 08:31 Consult Discharge Plan - Plan [facility]errals: [facility] [Primary Care Provider] - (patient will follow up with ecf)
[2017-03-02] MEDS: Sennosides/Docusate Sodium TABLET PO SCH (21:32)
[2017-03-03] MEDS: *HR* Heparin 5,000 UNIT/ML VIAL SQ SCH ×2 (04:23→18:09)
[2017-03-03 04:51] LABS: Basophils # 0.1 K/mcL (0.0-0.2); Basophils % 0.9 %; Eosinophils # 0.3 K/mcL (0.0-0.6); Eosinophils % 4.1 %; Hematocrit 38.4 % (37.5-50.1); Hemoglobin 12.1 g/dL (12.9-16.9); Immature Granulocytes % 0.5 % (0-4); Lymphocytes # 1.7 K/mcL (0.6-4.6); Lymphocytes % 21.3 %; Mean Corpuscular HGB Conc 31.5 g/dL (31.6-35.5); Mean Corpuscular Hemoglobin 29.8 pg (28.0-33.3); Mean Corpuscular Volume 94.6 fL (83.0-100.0); Mean Platelet Volume 9.7 fL (9.4-12.4); Monocytes # 0.7 K/mcL (0.0-1.3); Monocytes % 9.1 %; Neutrophils # 5.2 K/mcL (1.6-8.9); Platelet Count 187 K/mcL (140-400); Red Blood Count 4.06 M/mcL (4.19-5.50); Segmented Neutrophils % 64.1 %
[2017-03-03 05:04] LABS: Calcium 9.9 mg/dL (8.6-10.8); Magnesium 1.9 mg/dL (1.6-2.6); Phosphorous 4.9 mg/dL (2.3-4.7); Potassium 4.9 mEq/L (3.5-4.5)
[2017-03-03] MEDS ORDERED: 0.9 % Sodium Chloride 250 ML IVC PRN (08:23)
--- NOTE | 2017-03-03 08:23 | Nephrology Progress Note ---
Date of Encounter: 03/03/17 Time of Encounter: 08:20 - Assessment and Plan (1) ESRD (end stage renal disease) Current Visit: Yes Status: Chronic Patient will undergo dialysis today. Orders will be submitted. He is awaiting transfer to the [facility] for further rehabilitation for his right hip pain. (2) Altered mental status Current Visit: Yes Status: Resolved Qualifiers: Altered mental status type: delirium Qualified Code(s): R41.0 - Disorientation, unspecified (3) Right hip pain Current Visit: Yes Status: Acute Subjective Interval history: Patient has no new complaints. He is awaiting transfer to inpatient rehabilitation at the [facility]. He is scheduled for his dialysis today. He continues to have issues with hip pain but better than it was previously. Objective - Vital Signs Vital signs: Vital Signs Temp Pulse Resp BP Pulse Ox 03/03/17 06:44 98 F 70 17 139/78 93 03/03/17 03:45 98.2 F 75 18 134/56 94 03/02/17 23:04 97.4 F L 71 18 136/77 96 03/02/17 19:48 98.2 F 70 18 139/79 96 03/02/17 16:25 97.8 F 70 18 152/83 92 03/02/17 11:54 98.4 F 70 18 148/62 95 Intake and Output 03/02/17 03/03/17 03/03/17 23:59 07:59 15:59 Intake Total 220 / 220 Output Total 350 / 350 300 / 300 Balance -130 / -130 -300 / -300 Intake: Oral 220 / 220 Output: Urine 350 / 350 300 / 300 Other: Meal Dinner Percent of Meal Consumed 20% Weight 72.9 kg Patient Weight 03/03/17 23:59 Weight 72.9 kg - General Appearance Exam: Patient is alert and oriented. In no acute distress. Lungs clear to auscultation. Heart regular rate and rhythm with a 2/6 start ejection murmur. Abdomen is benign. There is no lower extremity swelling. There is a functioning AV graft in the right upper extremity. - Lab 03/03/17 04:20 03/03/17 04:20 Most recent lab results Calcium 9.9 mg/dL (8.6-10.8) 03/03/17 04:20 Phosphorus 4.9 mg/dL (2.3-4.7) H 03/03/17 04:20 Magnesium 1.9 mg/dL (1.6-2.6) 03/03/17 04:20 Consult Discharge Plan - Plan Referrals: [facility] [Primary Care Provider] - (patient will follow up with ecf)
[2017-03-03] MEDS: Cholecalciferol (D-3) 1,000 UNIT TABLET PO SCH (08:48)
[2017-03-03] MEDS: Aspirin Enteric Coated 81 MG Tablet PO SCH (08:49)
[2017-03-03] MEDS: BuPROPion SR (12 HR) 150 MG TABLET PO SCH ×2 (08:49→20:29)
[2017-03-03] MEDS: Sennosides/Docusate Sodium TABLET PO SCH ×2 (08:49→20:29)
[2017-03-03] MEDS: Gabapentin 300 MG CAPSULE PO SCH ×3 (08:49→20:29)
[2017-03-03] MEDS ORDERED: 0.9 % Sodium Chloride 2,000 ML ONE (11:49)
--- NOTE | 2017-03-03 15:39 | Internal Med Progress Note ---
Date of Encounter: 03/03/17 Time of Encounter: 15:37 - Assessment and plan (1) Right hip pain Current Visit: Yes Status: Acute Assessment and plan: right hip pain/lumbar spondylosis: CT right hip is negative for fracture. CT lumbar spine showed moderate lumbar canal spinal canal stenosis as well as bilateral L4-5 and L5-S1 lumbar radiculopathy/foramen stenosis. Right hip examined. Full range of motion and no pain. However he cannot bear any weight on it when he stands up orthopedics has seen him and is concerned for sacral fracture and bone scan has been ordered as patient cannot have MRI. Bone scan negative for sacral fracture Pt reports of significant pain relief with Valium, will continue Valium 5mg PO BID PRN Consultation with Dr. Winslow appreciated, outpatient epidural injections recommended Pt reports of having difficulty moving his bowels despite colace. Will d/c colace and start Senna plus 2 tabs PO BID and miralax prn PT OT is consulted consulted: ECF recommended discharge pending ECF placement Code(s): M25.551 - Pain in right hip (2) Urinary tract infection Current Visit: Yes Status: Resolved Assessment and plan: Pt finished 7 days of IV abx (last day of abx: 02/27/17) Qualifiers: Urinary tract infection type: site unspecified Hematuria presence: with hematuria Qualified Code(s): N39.0 - Urinary tract infection, site not specified; R31.9 - Hematuria, unspecified; R31.9 - Hematuria, unspecified (3) Altered mental status Current Visit: Yes Status: Resolved Assessment and plan: AAO x 3 Could be metabolic encephalopathy secondary to UTI versus iatrogenic secondary to Flexeril and to [place]. flexeril has been discontinued continue [place] Head CT is reported negative. Qualifiers: Altered mental status type: delirium Qualified Code(s): R41.0 - Disorientation, unspecified (4) ESRD (end stage renal disease) Current Visit: Yes Status: Chronic Assessment and plan: continue HD as per nephro nephro on board and consultation appreciated s/p HD (03/03/17) HD on MWF (5) Metabolic encephalopathy Current Visit: No Status: Resolved (6) DVT prophylaxis Current Visit: No Status: Acute Assessment and plan: Heparin SQ (7) Atrial fibrillation Current Visit: Yes Status: Acute Assessment and plan: S/p AV node ablation and BiV/ICD placement. Is not anticoagulated secondary to history of GI bleed Continue home carvedilol and ASA Qualifiers: Atrial fibrillation type: chronic Qualified Code(s): I48.2 - Chronic atrial fibrillation - Subjective Interval history: Pt seen and examined with present at bedside. Resting in bed and is s/p HD (02/28/17). States he feels better, pain better controlled. Pt encouraged to increase activity as tolerated CT L spine reported Central spinal canal narrowing is greatest at L4-L5 which is moderate in degree. Multilevel foraminal narrowing, greatest bilaterally at L4-L5, and L5-S1. outpatient follow up recommended by Dr. Winslow for epidural injections No overnight issues reported PT evaluation recommending ECF social services aide consultation requested for ECF placement. D/c pending ECF placement s/p HD today (03/03/17) - Constitutional Vitals: Temp Pulse Resp BP Pulse Ox 97.5 F L 70 15 131/79 93 03/03/17 12:25 03/03/17 06:44 03/03/17 12:25 03/03/17 12:25 03/03/17 06:44 General appearance: Present: cooperative, A&O X 3, pleasant, no acute distress, answers questions appropriately - Head Head exam: Present: atraumatic, normocephalic - Eye Eye exam: Present: conjuntiva pink, sclera anicteric - Respiratory Respiratory exam: Present: CTAB. Absent: accessory muscle use, rales, rhonchi, wheezes - Cardiovascular Cardiovascular exam: Present: RRR, +S1, +S2. Absent: diastolic murmur, gallop, rubs, systolic murmur - GI/Abdominal GI/Abdominal exam: Present: normal bowel sounds, soft, no peritoneal signs. Absent: distended, tenderness - Extremities Exam Extremities exam: Present: warm, radial pulses palpable and symmetrical. Absent : calf tenderness - Neurological Exam Neurological exam: Present: alert, oriented X3 - Psychiatric Psychiatric exam: Present: normal affect, normal mood Internal Medicine: Result - Labs CBC & Chem 7: 03/03/17 04:20 03/03/17 04:20 Labs: Short CBC 03/03/17 Range/Units 04:20 WBC 8.1 (4.3-11.1) K/mcL Hgb 12.1 L (12.9-16.9) g/dL Hct 38.4 (37.5-50.1) % Plt Count 187 (140-400) K/mcL Neutrophils # 5.2 (1.6-8.9) K/mcL BMP 03/03/17 04:20 Sodium 137 Potassium 4.9 H Chloride 100 Carbon Dioxide 29 BUN 44 H Creatinine 3.12 H Glucose 90 Calcium 9.9 - ABG Interpretation ABG results: PT/INR, D-dimer PT 13.7 Seconds (9.4-12.1) H 02/21/17 08:31 Consult Discharge Plan - Plan [facility]errals: [facility] [Primary Care Provider] - (patient will follow up with ecf)
[2017-03-03] MEDS: *HR* OxyCODONE Immed Rel 5 MG TABLET PO PRN (16:23)
[2017-03-04] MEDS: *HR* Heparin 5,000 UNIT/ML VIAL SQ SCH (05:45)
[2017-03-04] MEDS: *HR* OxyCODONE Immed Rel 5 MG TABLET PO PRN (05:50)
[2017-03-04 06:58] LABS: Basophils # 0.1 K/mcL (0.0-0.2); Basophils % 0.8 %; Eosinophils # 0.3 K/mcL (0.0-0.6); Eosinophils % 3.7 %; Hematocrit 39.7 % (37.5-50.1); Hemoglobin 12.7 g/dL (12.9-16.9); Immature Granulocytes % 0.5 % (0-4); Lymphocytes # 1.4 K/mcL (0.6-4.6); Mean Corpuscular Hemoglobin 30.2 pg (28.0-33.3); Mean Corpuscular Volume 94.3 fL (83.0-100.0); Mean Platelet Volume 9.5 fL (9.4-12.4); Monocytes # 0.7 K/mcL (0.0-1.3); Monocytes % 8.8 %; Neutrophils # 5.7 K/mcL (1.6-8.9); Platelet Count 186 K/mcL (140-400); Red Blood Count 4.21 M/mcL (4.19-5.50); Red Cell Distribution Width 13.9 % (11.5-14.5); Segmented Neutrophils % 69.2 %
[2017-03-04 07:13] LABS: Calcium 9.8 mg/dL (8.6-10.8); Magnesium 1.9 mg/dL (1.6-2.6)
[2017-03-04] MEDS: Gabapentin 300 MG CAPSULE PO SCH (07:51)
[2017-03-04] MEDS: Sennosides/Docusate Sodium TABLET PO SCH (07:51)
[2017-03-04] MEDS: BuPROPion SR (12 HR) 150 MG TABLET PO SCH (07:51)
[2017-03-04] MEDS: Aspirin Enteric Coated 81 MG Tablet PO SCH (07:52)
[2017-03-04] MEDS: Cholecalciferol (D-3) 1,000 UNIT TABLET PO SCH (07:52)
--- NOTE | 2017-03-04 10:04 | Discharge Summary ---
Date of Encounter: 03/04/17 Time of Encounter: 10:01 - Discharge Diagnosis (1) Right hip pain Priority: Primary Status: Acute Code(s): M25.551 - Pain in right hip (2) Urinary tract infection Priority: Secondary Status: Resolved Qualifiers: Urinary tract infection type: site unspecified Hematuria presence: with hematuria Qualified Code(s): N39.0 - Urinary tract infection, site not specified; R31.9 - Hematuria, unspecified; R31.9 - Hematuria, unspecified (3) Altered mental status Priority: Secondary Status: Resolved Qualifiers: Altered mental status type: delirium Qualified Code(s): R41.0 - Disorientation, unspecified (4) ESRD (end stage renal disease) Priority: Secondary Status: Chronic (5) Metabolic encephalopathy Priority: Secondary Status: Resolved (6) DVT prophylaxis Priority: Secondary Status: Acute (7) Atrial fibrillation Priority: Secondary Status: Chronic Qualifiers: Atrial fibrillation type: chronic Qualified Code(s): I48.2 - Chronic atrial fibrillation - Discharge Medications Prescriptions: diazePAM [Valium] 5 mg PO BID PRN #15 tablet PRN Reason: Spasms/back pain Oxycodone HCl 10 mg PO BID #10 tablet Home Medications: Acetaminophen [Tylenol] 650 mg PO PRN PRN 02/26/16 [History] Aspirin Enteric Coated [Aspirin EC] 81 mg PO DAILY 02/26/16 [History] Atorvastatin [Lipitor] 40 mg PO QPM 02/26/16 [History] BuPROPion SR (12 HR) [Wellbutrin SR] 150 mg PO BID 02/26/16 [History] Carvedilol [Coreg] 12.5 mg PO BID 02/26/16 [History] Ergocalciferol (VITAMIN D2) [Vitamin D] 800 unit PO BID 02/26/16 [History] Ethyl Chloride 2 spray TP AD MDD Prior to Dialysis 02/26/16 [History] Hypromellose [Pure & Gentle Eye Drops] 1 drop BOTH EYES QID 02/26/16 [History] Omeprazole [PriLOSEC] 40 mg PO DAILY 02/26/16 [History] Oxybutynin Chloride [Ditropan Xl] 20 mg PO DAILY 02/26/16 [History] Sertraline [Zoloft] 100 mg PO QAM 02/26/16 [History] TraZODone 50 mg PO HS PRN 02/26/16 [History] Albuterol Sulfate [Albuterol Inhaler] 2 puff IH Q6H PRN 02/21/17 [History] Gabapentin [Neurontin] 300 mg PO TID 02/21/17 [History] Oxycodone HCl 10 mg PO BID #10 tablet 03/04/17 [Rx] Polyethylene Glycol 3350 [MiraLAX] 17 gm PO DAILY PRN powd.pack 03/04/17 [Rx] Sennosides/Docusate Sodium [Senna Plus] 2 each PO BID tablet 03/04/17 [Rx] diazePAM [Valium] 5 mg PO BID PRN #15 tablet 03/04/17 [Rx] Allergies/Adverse Reactions: 3 Allergy/AdvReac Type Severity Reaction Status Date / Time gemfibrozil Allergy See Verified 02/21/17 08:21 Comments Terazosin Allergy See Verified 02/21/17 08:21 Comments Date of admission: 02/25/17 16:11 [facility] care physician[facility] Consults: 02/25/17 16:20 Consult to Physician [CONS] Routine Consulting Provider: Homar Winslow Jr Reason for Consult: spinal stenosis Call Completed: No 02/26/17 08:15 Consult to Dialysis [CONS] ONCE 02/27/17 08:15 Consult to Dialysis [CONS] ONCE 02/28/17 07:45 Consult to Dialysis [CONS] ONCE 03/03/17 08:30 Consult to Dialysis [CONS] ONCE Discharging clinician: Christine Lagos Anticipated date of discharge: 03/04/17 - Patient Status Disposition: Transfer SNF Condition: Good Functional capacity at discharge: uses cane/walker Overall status at discharge: patient is back to baseline - Discharge Instructions Follow Up With: [facility] [Primary Care Provider] - (patient will follow up with f) Additional Instructions: Please follow up with your primary care physician within one week after your discharge from the hospital. Please consider physiatry evaluation for lumbar epidural steroid injection if your lower back/hip pain persists. Please continue your home medications as prescribed by your primary care physician. - Diet and Activity Activity: as per physical therapy Diet: low salt diet Hospital course: Mr. Lee is a 71 year old male of ESRD on HD (MWF), COPD, Afib, CHF who was admitted for change in mental status, Right hip pain and UTI. pt was evaluated by orthopedic surgery and no acute surgical intervention was recommended. He was noted to have L-spine spinal stenosis due to which Dr. Winslow was consulted. Pt was started on Valium therapy to which he responded well. He was initially noted to be altered upon admission but was reported to recently being started on Flexeril. Flexeril was discontinued and his mental status returned to baseline (AAO x 3). Pt was evaluated by PT and ECF was recommended. His discharge was delayed due to ECF placement at the [facility]. He finished his abx course for his UTI. Pt is hemodynamically stable and will be discharged to home with follow up with PCP and physiatry for epidural steroid injections. - Time Spent with Patient Total time spent providing and/or coordinating discharge services: Greater than 30 minutes - Constitutional Vitals: Temp Pulse Resp BP Pulse Ox 97.5 F L 69 16 116/69 95 03/04/17 06:57 03/04/17 06:57 03/04/17 06:57 03/04/17 06:57 03/04/17 06:57 General appearance: Present: cooperative, A&O X 3, pleasant, no acute distress, answers questions appropriately - Head Head exam: Present: atraumatic, normocephalic - Eye Eye exam: Present: conjuntiva pink, sclera anicteric - Respiratory Respiratory exam: Present: CTAB. Absent: accessory muscle use, rales, rhonchi, wheezes - Cardiovascular Cardiovascular exam: Present: RRR, +S1, +S2. Absent: diastolic murmur, gallop, rubs, systolic murmur - GI/Abdominal GI/Abdominal exam: Present: normal bowel sounds, soft, no peritoneal signs. Absent: distended, tenderness - Extremities Exam Extremities exam: Present: warm, radial pulses palpable and symmetrical. Absent : calf tenderness, cyanotic, pedal edema - Neurological Exam Neurological exam: Present: alert, oriented X3
--- NOTE | 2017-03-04 10:10 | Physician Discharge Referral ---
[facility] Referral Info Transfer To: F Provider in Charge after Transfer: PCP - Diagnosis (1) Right hip pain Priority: Primary Status: Acute (2) Urinary tract infection Priority: Secondary Status: Resolved (3) Altered mental status Priority: Primary Status: Resolved (4) ESRD (end stage renal disease) Priority: Secondary Status: Chronic (5) Metabolic encephalopathy Priority: Secondary Status: Resolved (6) DVT prophylaxis Priority: Secondary Status: Acute (7) Atrial fibrillation Priority: Secondary Status: Chronic - Transfer Medications Prescriptions: diazePAM [Valium] 5 mg PO BID PRN #15 tablet PRN Reason: Spasms/back pain Oxycodone HCl 10 mg PO BID #10 tablet Home Medications: Acetaminophen [Tylenol] 650 mg PO PRN PRN 02/26/16 [History] Aspirin Enteric Coated [Aspirin EC] 81 mg PO DAILY 02/26/16 [History] Atorvastatin [Lipitor] 40 mg PO QPM 02/26/16 [History] BuPROPion SR (12 HR) [Wellbutrin SR] 150 mg PO BID 02/26/16 [History] Carvedilol [Coreg] 12.5 mg PO BID 02/26/16 [History] Ergocalciferol (VITAMIN D2) [Vitamin D] 800 unit PO BID 02/26/16 [History] Ethyl Chloride 2 spray TP AD MDD Prior to Dialysis 02/26/16 [History] Hypromellose [Pure & Gentle Eye Drops] 1 drop BOTH EYES QID 02/26/16 [History] Omeprazole [PriLOSEC] 40 mg PO DAILY 02/26/16 [History] Oxybutynin Chloride [Ditropan Xl] 20 mg PO DAILY 02/26/16 [History] Sertraline [Zoloft] 100 mg PO QAM 02/26/16 [History] TraZODone 50 mg PO HS PRN 02/26/16 [History] Albuterol Sulfate [Albuterol Inhaler] 2 puff IH Q6H PRN 02/21/17 [History] Gabapentin [Neurontin] 300 mg PO TID 02/21/17 [History] Oxycodone HCl 10 mg PO BID #10 tablet 03/04/17 [Rx] Polyethylene Glycol 3350 [MiraLAX] 17 gm PO DAILY PRN powd.pack 03/04/17 [Rx] Sennosides/Docusate Sodium [Senna Plus] 2 each PO BID tablet 03/04/17 [Rx] diazePAM [Valium] 5 mg PO BID PRN #15 tablet 03/04/17 [Rx] Allergies/Adverse Reactions: 3 Allergy/AdvReac Type Severity Reaction Status Date / Time gemfibrozil Allergy See Verified 02/21/17 08:21 Comments Terazosin Allergy See Verified 02/21/17 08:21 Comments - Respiratory Orders Smoking Cessation: Smoking cessation has been advised. For more information, call the [place] Tobacco Quit Line at 2-571-LWJB-NOW. CERTIFICATION: I certify that the transfer of the above named patient to an Extended Care Facility is necessary for the continuing treatment of the diagnosis listed. The above information is true and accurate reflection of patient's current condition. Confidential - Redisclosure prohibited without a patient's written consent.
[2017-03-04 10:39] VITALS: BP 125/74
== END 2017-03-04 13:21 | DRG 689 ==
LOC: EMEROO 08:10 → 2ANU 08:10 → SUATTDRO 09:57 → 2ANU 10:25
PROVIDERS: ADMIT Internal Medicine; ATTEND Internal Medicine

== ENCOUNTER 2018-06-26 14:14 | Observation (INO) ==
--- NOTE | 2018-06-26 14:57 | Emergency Department Note ---
Disposition Clinical Impression: Elevated troponin Altered mental status Qualifiers: Altered mental status type: unspecified Qualified Code(s): R41.82 - Altered mental status, unspecified Disposition: Admitted As Inpatient [facility] Care Provider[facility] - Forms: ED Satisfaction Letter Time of Disposition: 18:51 Altered Mental Status HPI - General Chief Complaint: ED Altered Mental Status Stated Complaint: AMS Time Seen by Provider: 06/26/18 14:17 Source: EMS Mode of arrival: EMS Limitations: altered mental status Nursing Notes Reviewed: Yes Vital Signs Reviewed: Yes - History of Present Illness HPI Narrative: Patient is a 72-year-old male presenting to [facility] ED from dialysis due to weakness and altered mental status. Per EMS p atient appears confused today, and has been complaining of intermittent weakness for an unknown duration. Upon initial evaluation patient is reclining in hospital but he is awake, alert, engaged conversation but appears confused and can only cooperate minimally to past medical history and review of systems questioning. Patient states that he is here today due to weakness and is unable to give a duration for how long this has been occurring. Patient states that he has a history of atrial fibrillation for which a pacemaker was placed and states he has had a heart surgery in the past but is unable to specify the exact type of surgery. Patient also admits to past medical history of ESRD for which she is on dialysis. Patient also admits to past medical history of mechanical injury to his right shoulder which has caused weakness in comparison to the left. In addition to the symptoms mentioned above patient admits to weakness in his upper extremities. Patient denies headache/dizziness, neck or back pain, chest pain/shortness of breath, abdominal pain/nausea/vomiting, loss of bowel or bladder control, numbness or paresthesias in his extremities or difficulty with ambulation. MD complaint: altered mental status, weakness Onset (ago): unknown Consistency of Symptoms: unknown - Related Data Home Medications Medication Instructions Recorded Confirmed Acetaminophen [Tylenol] 650 mg PO PRN PRN 02/26/16 02/21/17 Aspirin Enteric Coated [Aspirin EC] 81 mg PO DAILY 02/26/16 02/21/17 Atorvastatin [Lipitor] 40 mg PO QPM 02/26/16 02/21/17 BuPROPion SR (12 HR) [Wellbutrin 150 mg PO BID 02/26/16 02/21/17 SR] Carvedilol [Coreg] 12.5 mg PO BID 02/26/16 02/21/17 Ergocalciferol (VITAMIN D2) 800 unit PO BID 02/26/16 02/21/17 [Vitamin D] Ethyl Chloride 2 spray TP AD MDD Prior to Dialysis 02/26/16 02/21/17 Hypromellose [Pure & Gentle Eye 1 drop BOTH EYES QID 02/26/16 02/21/17 Drops] Omeprazole [PriLOSEC] 40 mg PO DAILY 02/26/16 02/21/17 Oxybutynin Chloride [Ditropan Xl] 20 mg PO DAILY 02/26/16 02/21/17 Sertraline [Zoloft] 100 mg PO QAM 02/26/16 02/21/17 TraZODone 50 mg PO HS PRN 02/26/16 02/21/17 Albuterol Sulfate [Albuterol 2 puff IH Q6H PRN 02/21/17 02/21/17 Inhaler] Gabapentin [Neurontin] 300 mg PO TID 02/21/17 02/21/17 Previous Rx's Medication Instructions Recorded OxyCODONE Immed Rel [Roxicodone 10 10 mg PO BID #10 tablet 03/04/17 MG] Polyethylene Glycol 3350 [MiraLAX] 17 gm PO DAILY PRN powd.pack 03/04/17 Sennosides/Docusate Sodium [Senna 2 each PO BID tablet 03/04/17 Plus] diazePAM [Valium] 5 mg PO BID PRN #15 tablet 03/04/17 Allergies Allergy/AdvReac Type Severity Reaction Status Date / Time gemfibrozil Allergy See Verified 02/21/17 08:21 Comments Terazosin Allergy See Verified 02/21/17 08:21 Comments All systems ED: reviewed and negative except as stated. Review of Systems: As Per HPI Past Medical History - Past Medical History Medical history: Reports: cancer, CHF, COPD, diabetes, GERD, hyperlipidemia, hypertension, renal disease, TIA Surgical history: Reports: pacemaker/AICD, other (dialysis fistula, bladder surgery for cancer) Psychiatric history: Reports: depression, PTSD - Social History Smoking Status: Former smoker Smokeless Tobacco Status: No Alcohol use: Reports: none Drug use: Reports: none Physical Exam - General Limitations: altered mental status General appearance: alert, in no apparent distress - Head Head exam: atraumatic, normocephalic, normal inspection - Eye Eye exam: Present: normal appearance, PERRL, EOMI. Absent: scleral icterus - Neck Neck exam: Present: normal inspection, trachea midline - Chest Chest inspection: Present: normal inspection, symmetric chest wall rise - Respiratory Respiratory exam: Present: normal lung sounds bilaterally. Absent: respiratory distress, wheezes, stridor, accessory muscle use, prolonged expiratory phase - Cardiovascular Cardiovascular exam: Present: regular rate, normal rhythm, normal heart sounds, +S1, +S2. Absent: systolic murmur, diastolic murmur, JVD, +S3, +S4 - Abdominal Exam Abdominal exam: Present: soft, Non-Tender, normal bowel sounds. Absent: tenderness, distention, guarding, rebound, rigidity - Neurological Exam Neurological exam: Present: alert, oriented X3, CN II-XII intact, reflexes normal. 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 Patient states that this is due to previous injury to RIGHT shoulder.) Motor strength - LLE: 4/5 Motor strength - RLE: 4/5 DTR: patellar (L): 3+, patellar (R): 3+ - Psychiatric Psychiatric exam: Present: normal affect, normal mood - Skin Skin exam: Present: warm, dry, intact, normal color. Absent: cyanosis, diaphoresis, erythema, pallor, mottled Course Course Narrative: CBC, BMP, LFTs, troponin, chest x-ray, urinalysis, EKG/old EKG, CT scan of the head and brain without contrast will be performed in order to further assess for potential underlying etiologies. Vital Signs Temperature 98.7 F 06/26/18 14:16 Pulse Rate 70 06/26/18 14:16 Respiratory Rate 16 06/26/18 14:16 Blood Pressure 134/74 06/26/18 14:16 O2 Sat by Pulse Oximetry 100 06/26/18 14:16 Temperature 98.7 F 06/26/18 14:16 Pulse Rate 70 06/26/18 14:16 Respiratory Rate 16 06/26/18 14:16 Blood Pressure 134/74 06/26/18 14:16 O2 Sat by Pulse Oximetry 100 06/26/18 14:16 Oxygen Delivery Oxygen Delivery Room Air Altered Mental Status - MDM Narrative Medical decision making narrative: Patient troponin found to be elevated at 0.05. Troponin will be trended No EKG abnormalities to suggest acute ischemia Otherwise laboratory and imaging values suggests no acute pathology Patient will be admitted to hospitalist medicine service for further evaluation and management of NSTEMI with altered mental status - Lab Data Lab results reviewed: Yes I reviewed the patient's lab results. Result diagrams: 06/26/18 15:08 06/26/18 15:08 Lab Results 06/26/18 06/26/18 06/26/18 Range/Units 15:03 15:08 15:08 WBC 10.7 (4.3-11.1) K/mcL RBC 3.01 L (4.19-5.50) M/mcL Hgb 9.7 L (12.9-16.9) g/dL Hct 29.6 L (37.5-50.1) % MCV 98.3 (83.0-100.0) fL MCH 32.2 (28.0-33.3) pg MCHC 32.8 (31.6-35.5) g/dL RDW 17.0 H (11.5-14.5) % Plt Count 145 (140-400) K/mcL MPV 10.0 (9.4-12.4) fL Seg Neutrophils % 78.0 % Lymphocytes % 14.0 % Monocytes % 6.0 % Myelocytes % 2.0 H (0) % Neutrophils # 8.4 (1.6-8.9) K/mcL Lymphocytes # 1.5 (0.6-4.6) K/mcL Monocytes # 0.6 (0.0-1.3) K/mcL Reactive Lymphocytes Present A (Not Present) PT 12.8 H (9.4-12.1) Seconds INR 1.1 APTT 28.2 (26.0-36.0) Seconds Sodium 140 (136-145) mEq/L Potassium 4.4 (3.5-5.1) mEq/L Chloride 95 L (98-107) mEq/L Carbon Dioxide 32 H (23-29) mEq/L BUN 45 H (8-23) mg/dL Creatinine 3.90 H (0.70-1.30) mg/dL Est GFR ( Amer) 19 L (> 60) Est GFR (Non-Af Amer) 15 L (> 60) BUN/Creatinine Ratio 12 (6-26) Glucose 78 (70-105) mg/dL Calculated Osmolality 300 (280-300) Calcium 9.8 (8.6-10.3) mg/dL Total Bilirubin 0.6 (0.3-1.0) mg/dL Direct Bilirubin 0.1 (0.0-0.2) mg/dL Indirect Bilirubin 0.5 (0.0-1.2) mg/dL AST 21 (13-39) Units/L ALT 22 (7-52) Units/L Alkaline Phosphatase 54 (34-104) Units/L Ammonia (16-53) mcmol/L Troponin I 0.05 H* (< 0.04) ng/mL Serum Total Protein 7.5 (6.4-8.9) g/dL Albumin 4.3 (3.5-5.7) g/dL Globulin 3.2 (2.4-3.5) g/dL Albumin/Globulin Ratio 1.3 (1.1-2.2) 06/26/18 Range/Units 15:08 WBC (4.3-11.1) K/mcL RBC (4.19-5.50) M/mcL Hgb (12.9-16.9) g/dL Hct (37.5-50.1) % MCV (83.0-100.0) fL MCH (28.0-33.3) pg MCHC (31.6-35.5) g/dL RDW (11.5-14.5) % Plt Count (140-400) K/mcL MPV (9.4-12.4) fL Seg Neutrophils % % Lymphocytes % % Monocytes % % Myelocytes % (0) % Neutrophils # (1.6-8.9) K/mcL Lymphocytes # (0.6-4.6) K/mcL Monocytes # (0.0-1.3) K/mcL Reactive Lymphocytes (Not Present) PT (9.4-12.1) Seconds INR APTT (26.0-36.0) Seconds Sodium (136-145) mEq/L Potassium (3.5-5.1) mEq/L Chloride (98-107) mEq/L Carbon Dioxide (23-29) mEq/L BUN (8-23) mg/dL Creatinine (0.70-1.30) mg/dL Est GFR ( Amer) (> 60) Est GFR (Non-Af Amer) (> 60) BUN/Creatinine Ratio (6-26) Glucose (70-105) mg/dL Calculated Osmolality (280-300) Calcium (8.6-10.3) mg/dL Total Bilirubin (0.3-1.0) mg/dL Direct Bilirubin (0.0-0.2) mg/dL Indirect Bilirubin (0.0-1.2) mg/dL AST (13-39) Units/L ALT (7-52) Units/L Alkaline Phosphatase (34-104) Units/L Ammonia 47 (16-53) mcmol/L Troponin I (< 0.04) ng/mL Serum Total Protein (6.4-8.9) g/dL Albumin (3.5-5.7) g/dL Globulin (2.4-3.5) g/dL Albumin/Globulin Ratio (1.1-2.2) - Radiology Data Radiology results reviewed: Yes I reviewed the patient's radiology results. Chest X-Ray 06/26/18 14:50 IMPRESSION: Status post interval ORIF from multiple rib fractures on the right. No acute cardiopulmonary disease noted. D/ / 06/26/2018 15:08:36 Zev Velez MD / [facility] Interpreting Provider: Zev Velez MD Head CT 06/26/18 14:50 IMPRESSION: No acute intracranial abnormality. D/ / Kyle Ibrahim MD / Kyle Ibrahim MD Interpreting Provider: Kyle Ibrahim MD - EKG Data EKG attestation: Yes I reviewed and interpreted this EKG. EKG results narrative: Patient's EKG shows atrial fibrillation with a ventricular paced rhythm with a heart rate of 70 bpm QRS duration of 158 ms, QT/QTc interval 465/502 ms respectively. There are no significant ST segment elevations or depressions, or any overt signs of acute ischemia. This EKG performed today is generally consistent with prior EKG performed in 12/07/2017. TPA Checklist - LKW: 3-4.5 hrs Add. Warnings/Precautions Patient/family understanding: The patient/family members have been counseled and understood the risk, benefit, and alternatives of treatment.
[2018-06-26 15:39] LABS: Albumin 4.3 g/dL (3.5-5.7); Albumin/Globulin Ratio 1.3 (1.1-2.2); Bilirubin,Direct 0.1 mg/dL (0.0-0.2); Bilirubin,Indirect 0.5 mg/dL (0.0-1.2); Bilirubin,Total 0.6 mg/dL (0.3-1.0); Calcium 9.8 mg/dL (8.6-10.3); Globulin 3.2 g/dL (2.4-3.5); Hematocrit 29.6 % (37.5-50.1); Hemoglobin 9.7 g/dL (12.9-16.9); Mean Corpuscular HGB Conc 32.8 g/dL (31.6-35.5); Mean Corpuscular Hemoglobin 32.2 pg (28.0-33.3); Mean Corpuscular Volume 98.3 fL (83.0-100.0); Platelet Count 145 K/mcL (140-400); Potassium 4.4 mEq/L (3.5-5.1); Red Blood Count 3.01 M/mcL (4.19-5.50); Total Protein 7.5 g/dL (6.4-8.9)
[2018-06-26 15:59] LABS: Troponin I 0.05 ng/mL (< 0.04)
[2018-06-26 16:08] LABS: Lymphocytes # 1.5 K/mcL (0.6-4.6); Monocytes # 0.6 K/mcL (0.0-1.3); Neutrophils # 8.4 K/mcL (1.6-8.9); Reactive Lymphocytes Present (Not Present)
[2018-06-26] MEDS ORDERED: Aspirin 81 MG TAB.CHEW PO SCH (17:11)
[2018-06-26 17:29] LABS: INR 1.1; Prothrombin Time 12.8 Seconds (9.4-12.1)
[2018-06-26 17:32] LABS: Activated Partial Thrombo Time 28.2 Seconds (26.0-36.0)
--- NOTE | 2018-06-26 18:27 | Emergency Department Note ---
Disposition Clinical Impression: Elevated troponin Altered mental status Qualifiers: Altered mental status type: unspecified Qualified Code(s): R41.82 - Altered mental status, unspecified Disposition: Admitted As Inpatient [facility] Care Provider[facility] - Forms: ED Satisfaction Letter General Adult HPI - General Chief complaint: ED Altered Mental Status Stated complaint: AMS Time Seen by Provider: 06/26/18 14:17 Source: EMS Mode of arrival: EMS Limitations: altered mental status - History of Present Illness Pain Scale: 0 - Related Data Home Medications Medication Instructions Recorded Confirmed Acetaminophen [Tylenol] 650 mg PO PRN PRN 02/26/16 02/21/17 Aspirin Enteric Coated [Aspirin EC] 81 mg PO DAILY 02/26/16 02/21/17 Atorvastatin [Lipitor] 40 mg PO QPM 02/26/16 02/21/17 BuPROPion SR (12 HR) [Wellbutrin 150 mg PO BID 02/26/16 02/21/17 SR] Carvedilol [Coreg] 12.5 mg PO BID 02/26/16 02/21/17 Ergocalciferol (VITAMIN D2) 800 unit PO BID 02/26/16 02/21/17 [Vitamin D] Ethyl Chloride 2 spray TP AD MDD Prior to Dialysis 02/26/16 02/21/17 Hypromellose [Pure & Gentle Eye 1 drop BOTH EYES QID 02/26/16 02/21/17 Drops] Omeprazole [PriLOSEC] 40 mg PO DAILY 02/26/16 02/21/17 Oxybutynin Chloride [Ditropan Xl] 20 mg PO DAILY 02/26/16 02/21/17 Sertraline [Zoloft] 100 mg PO QAM 02/26/16 02/21/17 TraZODone 50 mg PO HS PRN 02/26/16 02/21/17 Albuterol Sulfate [Albuterol 2 puff IH Q6H PRN 02/21/17 02/21/17 Inhaler] Gabapentin [Neurontin] 300 mg PO TID 02/21/17 02/21/17 Previous Rx's Medication Instructions Recorded OxyCODONE Immed Rel [Roxicodone 10 10 mg PO BID #10 tablet 03/04/17 MG] Polyethylene Glycol 3350 [MiraLAX] 17 gm PO DAILY PRN powd.pack 03/04/17 Sennosides/Docusate Sodium [Senna 2 each PO BID tablet 03/04/17 Plus] diazePAM [Valium] 5 mg PO BID PRN #15 tablet 03/04/17 Allergies Allergy/AdvReac Type Severity Reaction Status Date / Time gemfibrozil Allergy See Verified 02/21/17 08:21 Comments Terazosin Allergy See Verified 02/21/17 08:21 Comments Past Medical History - Past Medical History Medical history: Reports: cancer, CHF, COPD, diabetes, GERD, hyperlipidemia, hypertension, renal disease, TIA Surgical history: Reports: pacemaker/AICD, other (dialysis fistula, bladder surgery for cancer) Psychiatric history: Reports: depression, PTSD - Social History Smoking Status: Former smoker Smokeless Tobacco Status: No Alcohol use: Reports: none Drug use: Reports: none Physical Exam - General Limitations: altered mental status General appearance: alert, in no apparent distress Course Vital Signs Temperature 98.7 F 06/26/18 14:16 Pulse Rate 70 06/26/18 14:16 Respiratory Rate 16 06/26/18 14:16 Blood Pressure 134/74 06/26/18 14:16 O2 Sat by Pulse Oximetry 100 06/26/18 14:16 Temperature 98.7 F 06/26/18 14:16 Pulse Rate 70 06/26/18 14:16 Respiratory Rate 16 06/26/18 14:16 Blood Pressure 134/74 06/26/18 14:16 O2 Sat by Pulse Oximetry 100 06/26/18 14:16 Oxygen Delivery Oxygen Delivery Room Air Medical Decision Making - Lab Data Result diagrams: 06/26/18 15:08 06/26/18 15:08 Lab Results 06/26/18 06/26/18 06/26/18 Range/Units 15:03 15:08 15:08 WBC 10.7 (4.3-11.1) K/mcL RBC 3.01 L (4.19-5.50) M/mcL Hgb 9.7 L (12.9-16.9) g/dL Hct 29.6 L (37.5-50.1) % MCV 98.3 (83.0-100.0) fL MCH 32.2 (28.0-33.3) pg MCHC 32.8 (31.6-35.5) g/dL RDW 17.0 H (11.5-14.5) % Plt Count 145 (140-400) K/mcL MPV 10.0 (9.4-12.4) fL Seg Neutrophils % 78.0 % Lymphocytes % 14.0 % Monocytes % 6.0 % Myelocytes % 2.0 H (0) % Neutrophils # 8.4 (1.6-8.9) K/mcL Lymphocytes # 1.5 (0.6-4.6) K/mcL Monocytes # 0.6 (0.0-1.3) K/mcL Reactive Lymphocytes Present A (Not Present) PT 12.8 H (9.4-12.1) Seconds INR 1.1 APTT 28.2 (26.0-36.0) Seconds Sodium 140 (136-145) mEq/L Potassium 4.4 (3.5-5.1) mEq/L Chloride 95 L (98-107) mEq/L Carbon Dioxide 32 H (23-29) mEq/L BUN 45 H (8-23) mg/dL Creatinine 3.90 H (0.70-1.30) mg/dL Est GFR ( Amer) 19 L (> 60) Est GFR (Non-Af Amer) 15 L (> 60) BUN/Creatinine Ratio 12 (6-26) Glucose 78 (70-105) mg/dL Calculated Osmolality 300 (280-300) Calcium 9.8 (8.6-10.3) mg/dL Total Bilirubin 0.6 (0.3-1.0) mg/dL Direct Bilirubin 0.1 (0.0-0.2) mg/dL Indirect Bilirubin 0.5 (0.0-1.2) mg/dL AST 21 (13-39) Units/L ALT 22 (7-52) Units/L Alkaline Phosphatase 54 (34-104) Units/L Ammonia (16-53) mcmol/L Troponin I 0.05 H* (< 0.04) ng/mL Serum Total Protein 7.5 (6.4-8.9) g/dL Albumin 4.3 (3.5-5.7) g/dL Globulin 3.2 (2.4-3.5) g/dL Albumin/Globulin Ratio 1.3 (1.1-2.2) 06/26/18 Range/Units 15:08 WBC (4.3-11.1) K/mcL RBC (4.19-5.50) M/mcL Hgb (12.9-16.9) g/dL Hct (37.5-50.1) % MCV (83.0-100.0) fL MCH (28.0-33.3) pg MCHC (31.6-35.5) g/dL RDW (11.5-14.5) % Plt Count (140-400) K/mcL MPV (9.4-12.4) fL Seg Neutrophils % % Lymphocytes % % Monocytes % % Myelocytes % (0) % Neutrophils # (1.6-8.9) K/mcL Lymphocytes # (0.6-4.6) K/mcL Monocytes # (0.0-1.3) K/mcL Reactive Lymphocytes (Not Present) PT (9.4-12.1) Seconds INR APTT (26.0-36.0) Seconds Sodium (136-145) mEq/L Potassium (3.5-5.1) mEq/L Chloride (98-107) mEq/L Carbon Dioxide (23-29) mEq/L BUN (8-23) mg/dL Creatinine (0.70-1.30) mg/dL Est GFR ( Amer) (> 60) Est GFR (Non-Af Amer) (> 60) BUN/Creatinine Ratio (6-26) Glucose (70-105) mg/dL Calculated Osmolality (280-300) Calcium (8.6-10.3) mg/dL Total Bilirubin (0.3-1.0) mg/dL Direct Bilirubin (0.0-0.2) mg/dL Indirect Bilirubin (0.0-1.2) mg/dL AST (13-39) Units/L ALT (7-52) Units/L Alkaline Phosphatase (34-104) Units/L Ammonia 47 (16-53) mcmol/L Troponin I (< 0.04) ng/mL Serum Total Protein (6.4-8.9) g/dL Albumin (3.5-5.7) g/dL Globulin (2.4-3.5) g/dL Albumin/Globulin Ratio (1.1-2.2) Attestation Statement - Attestation Attestation: I examined this patient and my medical decision-making was reviewed with the Resident Physician. I agree with the documented findings, disposition and treatment plan as described except to the extent set forth below. 72 year old male presents to the ED with complaints of AMS and apepars to have n ew elevated troponin and he is a dilaysis patinet who has not msised any doses. We will admit to medicine
[2018-06-26] MEDS ORDERED: Naloxone 0.4 MG/ML INJ IVP PRN (18:49)
[2018-06-26] MEDS ORDERED: diazePAM 5 MG TABLET PO PRN (20:05)
[2018-06-26] MEDS ORDERED: Ipratropium/Albuterol Neb 3 ML IH PRN (20:10)
--- NOTE | 2018-06-26 20:39 | Internal Med History&Physical ---
Date of Encounter: 06/26/18 Time of Encounter: 19:00 Internal Medicine - H&P: HPI Chief complaint: ALTERED MENTAL STATUS Admitted From: Home Plans for Post Hospital Care: Home History of present illness: The patient is a 72-year-old male. He was sent to our emergency room shortly after he had developed confusion when getting hemodialysis. He completed hemodialysis session. He takes it on Wednesdays and Fridays. I met him and his in the emergency department. The patient does not seem to be confused anymore. According to his he has had moments of being out of it for the last 24-36 hours. The patient tells me that he remembers what happened at the last hemodialysis. He does not remember having any difficult mental moments there. He knows, that he is at [facility]. He recognizes his . Denies difficulty breathing, coughing and wheezing. Denies urinary symptoms. He made a small amount of urine in the emergency room. He has had chronic pain on the right side of his chest resulting from an accident he had done a few months ago. It resulted with multiple rib fractures requiring immobilization with dedicated. He has been taking quite a bit of oxycodone since then. One can see that the patient is also taking Zoloft, Wellbutrin SR, Neurontin and Valium. PAST MEDICAL HX: He has had systolic heart failure with ejection fraction of 30-35%, when measured a couple years ago. He has had hypertensive renal disease with end- stage renal disease (on hemodialysis). Additionally, treated for COPD, GERD, hyperactive bladder and hyperlipidemia. He was diagnosed with TIA in the past. He carries a pacemaker/AICD. He is also treated for depression, anxiety and posttraumatic stress disorder. PAST FAMILY HX: Positive for hypertension. PAST SOCIAL HX: He used to smoke in the past; quit long time ago. He denies alcohol and illicit drug use. REVIEW OF SYSTEMS: All 14 organ systems were reviewed by me with the patient. Positive and pertinent negative findings are listed above. The rest of organ systems is negative. PHYSICAL EXAM: Skin: Free of rash and discoloration. Eyes: Sclera is white. There is no discharge from eyes. ENMT: Oral/pharyngeal mucosa is normal in appearance. There is no discharge from nose or ears. Respiratory: Normal breath sounds with no crackles and wheezes bilaterally. CV: Heart is regular with no gallop or murmur. GI: Abdomen is flat and soft with no palpable mass or visceromegaly. : There is no tenderness in patient's flanks bilaterally. Neuro exam: He has good strength in upper and lower extremities. He has normal eye movements. Psychiatric: He has normal affect. His thought process is appropriate to the situation. ADDITIONAL DATA: CT of the head/brain does not show any acute intracranial abnormality. Chest x-ray shows ORIF from multiple rib fractures on the right. No acute cardiopulmonary disease is noted. CBC shows hemoglobin of 9.7 with normal WBC/platelet count. Electrolytes are showing a bicarb of 32. Otherwise, they are normal. Creatinine is 3.90 with GFR of 15. Liver function tests are normal. Troponin is 0.05 and 0.05. EKG shows paced ventricular rhythm. A/P: Altered mental status. We will admit him to telemetry floor to rule out cardiac arrhythmia. I will cut down on some of his medications, especially psychiatric ones. Chronic systolic heart failure. Seems to be compensated. End-stage renal disease on hemodialysis. I will consult nephrology, if needed. His other medical problems are mentioned above. He seems to be stable/under control. Past Med Surg Social Fam HX - Past Medical History Medical history: cancer, CHF, COPD, GERD, hyperlipidemia, hypertension, renal disease, TIA Additional medical history: bladder CA Psychiatric history: depression, PTSD - Past Surgical History Surgical History: pacemaker/AICD, other - Social History Smoking Status: Former smoker Smokeless Tobacco Status: No Alcohol use: none Drug use: none - Family History Mother Living Status: Hx Family Cardiac Disorders: Yes Father Living Status: Hx Family Cardiac Disorders: Yes Internal Medicine - H&P: Meds Acetaminophen [Tylenol] 650 mg PO PRN PRN 02/26/16 [History] Aspirin Enteric Coated [Aspirin EC] 81 mg PO DAILY 02/26/16 [History] Atorvastatin [Lipitor] 40 mg PO QPM 02/26/16 [History] BuPROPion SR (12 HR) [Wellbutrin SR] 150 mg PO BID 02/26/16 [History] Carvedilol [Coreg] 12.5 mg PO BID 02/26/16 [History] Ergocalciferol (VITAMIN D2) [Vitamin D] 800 unit PO BID 02/26/16 [History] Ethyl Chloride 2 spray TP AD MDD Prior to Dialysis 02/26/16 [History] Hypromellose [Pure & Gentle Eye Drops] 1 drop BOTH EYES QID 02/26/16 [History] Omeprazole [PriLOSEC] 40 mg PO DAILY 02/26/16 [History] Oxybutynin Chloride [Ditropan Xl] 20 mg PO DAILY 02/26/16 [History] Sertraline [Zoloft] 100 mg PO QAM 02/26/16 [History] TraZODone 50 mg PO HS PRN 02/26/16 [History] Albuterol Sulfate [Albuterol Inhaler] 2 puff IH Q6H PRN 02/21/17 [History] Gabapentin [Neurontin] 300 mg PO TID 02/21/17 [History] OxyCODONE Immed Rel [Roxicodone 10 MG] 10 mg PO BID #10 tablet 03/04/17 [Rx] Polyethylene Glycol 3350 [MiraLAX] 17 gm PO DAILY PRN powd.pack 03/04/17 [Rx] Sennosides/Docusate Sodium [Senna Plus] 2 each PO BID tablet 03/04/17 [Rx] diazePAM [Valium] 5 mg PO BID PRN #15 tablet 03/04/17 [Rx] Allergy/AdvReac Type Severity Reaction Status Date / Time gemfibrozil Allergy See Verified 02/21/17 08:21 Comments Terazosin Allergy See Verified 02/21/17 08:21 Comments - Constitutional Vitals: Temp Pulse Resp BP Pulse Ox 98.6 F 70 18 147/76 97 06/26/18 19:34 06/26/18 19:34 06/26/18 19:34 06/26/18 19:34 06/26/18 19:34 General appearance: Present: cooperative, A&O X 3, no acute distress, answers questions appropriately Exam: XX Internal Med - H&P Results - Labs CBC & Chem 7: 06/26/18 15:08 06/26/18 15:08 Labs: Short CBC 06/26/18 Range/Units 15:08 WBC 10.7 (4.3-11.1) K/mcL Hgb 9.7 L (12.9-16.9) g/dL Hct 29.6 L (37.5-50.1) % Plt Count 145 (140-400) K/mcL Neutrophils # 8.4 (1.6-8.9) K/mcL BMP 06/26/18 15:08 Sodium 140 Potassium 4.4 Chloride 95 L Carbon Dioxide 32 H BUN 45 H Creatinine 3.90 H Glucose 78 Calcium 9.8 Cardiac Enzymes 06/26/18 06/26/18 Range/Units 15:08 19:18 Troponin I 0.05 H* 0.05 H* (< 0.04) ng/mL Liver Function 06/26/18 Range/Units 15:08 Total Bilirubin 0.6 (0.3-1.0) mg/dL Direct Bilirubin 0.1 (0.0-0.2) mg/dL AST 21 (13-39) Units/L ALT 22 (7-52) Units/L Alkaline Phosphatase 54 (34-104) Units/L Albumin 4.3 (3.5-5.7) g/dL - Impressions ITS Impressions Chest X-Ray 06/26/18 14:50 IMPRESSION: Status post interval ORIF from multiple rib fractures on the right. No acute cardiopulmonary disease noted. D/ / 06/26/2018 15:08:36 Zev Velez MD / [facility] Interpreting Provider: Zev Velez MD Head CT 06/26/18 14:50 IMPRESSION: No acute intracranial abnormality. D/ / Kyle Ibrahim MD / Kyle Ibrahim MD Interpreting Provider: Kyle Ibrahim MD - Assessment and plan (1) Altered mental status Current Visit: Yes Status: Acute Qualifiers: Altered mental status type: unspecified Qualified Code(s): R41.82 - Altered mental status, unspecified (2) Chronic systolic heart failure Current Visit: Yes Status: Chronic (3) Hypertensive heart disease with end-stage renal disease (ESRD) Current Visit: Yes Status: Chronic (4) ESRD on hemodialysis Current Visit: Yes Status: Chronic - Time Spent With Patient Total time spent is greater than 50% in coordination of care (as documented) at patient's floor/unit and/or counseling patient: 25 - 35 minutes - VTE Deep Vein Thrombosis/Pulmonary Embolism Present on Admission: No
[2018-06-26] MEDS: Gabapentin 100 MG CAPSULE PO SCH (21:14)
[2018-06-26] MEDS: Artificial Tears SOLN 15 ML BOTTLE BOTH EYES SCH (21:15)
[2018-06-27 06:11] LABS: Bilirubin,Urine Negative (Negative); Blood,Urine Negative (Negative); Clarity,Urine Clear (Clear); Color,Urine Yellow (Yellow); Glucose,Urine (UA) Normal (Normal); Ketones,Urine Negative (Negative); Leukocyte Esterase,Urine Negative (Negative); Nitrite,Urine Negative (Negative); PH,Urine 8.5 pH Units (5.0-8.0); Protein,Urine 100 mg/dL (Neg-Trace); Specific Gravity,Urine 1.005 (1.010-1.025); Urobilinogen,Urine Normal (Normal)
[2018-06-27 06:12] LABS: Bacteria,Urine None Seen per hpf (None-Few); Hyaline Casts,Urine None Seen per lpf (None-Few); RBC,Urine 0-3 per hpf (0-3); Squamous Epithelial Cell,Urine Many per lpf (None-Few)
[2018-06-27 06:25] LABS: Transitional Epi Cells,Urine Few per hpf (None-Few)
[2018-06-27 07:59] LABS: Basophils # 0.1 K/mcL (0.0-0.2); Basophils % 0.9 %; Eosinophils # 0.1 K/mcL (0.0-0.6); Hemoglobin 9.4 g/dL (12.9-16.9); Immature Granulocytes % 2.8 % (0-4); Lymphocytes # 1.6 K/mcL (0.6-4.6); Lymphocytes % 19.9 %; Mean Corpuscular HGB Conc 31.3 g/dL (31.6-35.5); Mean Corpuscular Hemoglobin 32.4 pg (28.0-33.3); Mean Corpuscular Volume 103.4 fL (83.0-100.0); Monocytes # 0.7 K/mcL (0.0-1.3); Monocytes % 9.3 %; Neutrophils # 5.3 K/mcL (1.6-8.9); Red Cell Distribution Width 16.8 % (11.5-14.5); Segmented Neutrophils % 66.1 %
[2018-06-27 08:18] LABS: Platelet Count 64 K/mcL (140-400)
[2018-06-27 08:24] LABS: Calcium 9.4 mg/dL (8.6-10.3); Potassium 5.5 mEq/L (3.5-5.1)
[2018-06-27 08:33] LABS: Hepatitis B Surface Antibody 3.89 mIU/mL
[2018-06-27 08:44] LABS: Hepatitis B Surface Antigen Nonreactive (Nonreactive)
[2018-06-27] MEDS: Gabapentin 100 MG CAPSULE PO SCH ×3 (09:19→21:33)
[2018-06-27] MEDS: Aspirin Enteric Coated 81 MG Tablet PO SCH (09:19)
[2018-06-27] MEDS: Artificial Tears SOLN 15 ML BOTTLE BOTH EYES SCH ×4 (09:21→21:33)
[2018-06-27] MEDS ORDERED: *HR* OxyCODONE Immed Rel 5 MG TABLET PO PRN (10:40)
[2018-06-27] MEDS ORDERED: traZODone 50 MG TABLET PO SCH (21:00)
--- NOTE | 2018-06-27 21:39 | Internal Med Progress Note ---
Hospitalist Progress Note - Encounter Date of Encounter: 06/27/18 Time of Encounter: 19:00 - Subjective Interval History: SUBJECTIVE: The patient is altered mental status basically subsided (confirmed by his ). I did not start a couple of his psychiatric medications at admission. I gave him lower dose Neurontin. I decided to continue his previous dose of Valium. The patient is not voicing any particular problems. He has no problems with swallowing/ambulation. Denies chest pain and difficulty breathing. Denies abdominal pain, nausea and vomiting. He has normal urination. OBJECTIVE: Skin: Free of rash and discoloration. ENMT: Oral/pharyngeal mucosa is normal in appearance. Eyes: Sclera is white. There is no discharge from eyes. Respiratory: Normal breath sounds; no crackles or wheezes. CV: Heart is regular; no gallop or murmur. GI: Abdomen is soft and not tender. There is no palpable mass or visceromegaly. Neuro: There is no focal deficits. ADDITIONAL DATA: See tests done yesterday at admission. ASSESSMENT AND PLAN: Altered mental status. Likely secondary to multiple medications affecting his central nervous system. I will try to keep him only on necessary minimum. Lower dose Neurontin and volume were started yesterday. Today I am restarting his sertraline, trazodone and when necessary oxycodoneall of them at lower doses. Chronic systolic heart failure. Compensated. To continue Coreg. No ALYSHA inhibitor/ARB due to his bad renal function. He does not need any diuretics at this time. He will stay on mild fluid restriction. Hypertensive renal disease with end-stage renal disease. Stable. He gets hemodialysis on Mondays, Wednesdays and Fridays. DISPOSITION: I will discharge him home registered nurse renal tomorrowif he remains stable. - Exam Vitals: Temp Pulse Resp BP Pulse Ox 98.5 F 70 17 136/72 97 06/27/18 20:30 06/27/18 20:30 06/27/18 20:30 06/27/18 20:30 06/27/18 20:30 Exam: xx - Assessment and Plan (1) Altered mental status Current Visit: Yes Status: Acute (2) Chronic systolic heart failure Current Visit: Yes Status: Chronic (3) Hypertensive kidney disease with end-stage renal disease Current Visit: Yes Status: Chronic - Time Spent with Patient Total time spent is greater than 50% in coordination of care (as documented) at patient's floor/unit and/or counseling patient: 25 - 35 minutes Plan of Care Discussed with: patient (and family...) Internal Medicine: Result - Labs CBC & Chem 7: 06/27/18 07:47 06/27/18 07:47 Labs: Short CBC 06/27/18 Range/Units 07:47 WBC 8.0 (4.3-11.1) K/mcL Hgb 9.4 L (12.9-16.9) g/dL Hct 30.0 L (37.5-50.1) % Plt Count 64 L D (140-400) K/mcL Neutrophils # 5.3 (1.6-8.9) K/mcL BMP 06/27/18 07:47 Sodium 138 Potassium 5.5 H Chloride 99 Carbon Dioxide 26 BUN 62 H Creatinine 5.25 H Glucose 72 Calcium 9.4 Urine 06/27/18 Range/Units 06:05 Urine Color Yellow (Yellow) Urine Clarity Clear (Clear) Urine pH 8.5 H (5.0-8.0) pH Units Ur Specific [place] 1.005 L (1.010-1.025) Urine Protein 100 H (Neg-Trace) mg/dL Urine Glucose (UA) Normal (Normal) mg/dL - ABG Interpretation ABG results: PT/INR, D-dimer PT 12.8 Seconds (9.4-12.1) H 06/26/18 15:03 - VTE Deep Vein Thrombosis/Pulmonary Embolism Present on Admission: No Consult Discharge Plan - Plan [facility]errals: [facility]Primary Care Provider[facility] - (1) Altered mental status Qualifiers: Altered mental status type: unspecified Qualified Code(s): R41.82 - Altered mental status, unspecified
--- NOTE | 2018-06-28 05:31 | Electrocardiograph Report ---
[place] [facility] Test Date: 2018-06-26 Pat Name: Sreekanth Lee Department: [id number] Room: 2A22 Gender: M [employer]: : [id number] Requested By: Elan Granados Order Number: [id number] Reading MD: Demetrio Salas Measurements Intervals [place] Rate: 70 P: [place]: QRS: 242 QRSD: 158 T: -48 QT: 465 QTc: 502 Interpretive Statements Afib/flutter and ventricular-paced rhythm No further analysis attempted due to paced rhythm Electronically Signed On 06-28-2018 5:29:50 EST by Demetrio Salas
[2018-06-28] MEDS: Gabapentin 100 MG CAPSULE PO SCH (09:08)
[2018-06-28] MEDS: Aspirin Enteric Coated 81 MG Tablet PO SCH (09:08)
[2018-06-28] MEDS: Artificial Tears SOLN 15 ML BOTTLE BOTH EYES SCH ×2 (09:08→12:18)
[2018-06-28 10:36] VITALS: BP 135/80
--- NOTE | 2018-06-28 11:49 | Discharge Summary ---
Orders not resulted at time of discharge: Pending orders 06/26/18 15:32 Bedside Swallowing Evaluation [EVAL] Routine Date of Encounter: 06/28/18 Time of Encounter: 11:44 - Discharge Diagnosis (1) Altered mental status Priority: Primary Status: Acute Qualifiers: Altered mental status type: unspecified Qualified Code(s): R41.82 - Altered mental status, unspecified (2) Chronic systolic heart failure Priority: Secondary Status: Chronic (3) Hypertensive kidney disease with end-stage renal disease Priority: Secondary Status: Chronic Hospital course: HOSPITAL COURSE: The patient is a 72-year-old male. He is end-stage renal disease, on hemodialysis. We admitted him to the hospital with altered mental status. We did not find any infectious or metabolic cause for that change. I decreased the doses of his Zoloft, Neurontin and trazodone. I decided to continue Valium at 5 mg twice a day, if needed. Dose changes likely helped. His altered mental status subsided; confirmed by his . CONDITION AT DISCHARGE: Feels good. He has no problems with his diet or ambulation. Denies chest pain and difficulty breathing. Denies abdominal pain, nausea or vomiting. His ESRD. Skin: Free of rash and discoloration. Respiratory: Normal breath sounds with no crackles and wheezes bilaterally. CV: Heart is regular with no gallop or murmur. GI: Abdomen is flat and soft with no palpable mass or visceromegaly. Neuro exam: There is no focal deficits. Normal speech, swallowing and gait. SEE DISCHARGE ORDERS/MEDICATIONS HOSPITAL COURSE: The patient is a 72-year-old male. He is end-stage renal disease, on hemodialysis. We admitted him to the hospital with altered mental status. We did not find any infectious or metabolic cause for that change. I decreased the doses of his Zoloft, Neurontin and trazodone. I decided to continue Valium at 5 mg twice a day, if needed. Dose changes likely helped. His altered mental status subsided; confirmed by his . CONDITION AT DISCHARGE: Feels good. He has no problems with his diet or ambulation. Denies chest pain and difficulty breathing. Denies abdominal pain, nausea or vomiting. His ESRD. Skin: Free of rash and discoloration. Respiratory: Normal breath sounds with no crackles and wheezes bilaterally. CV: Heart is regular with no gallop or murmur. GI: Abdomen is flat and soft with no palpable mass or visceromegaly. Neuro exam: There is no focal deficits. Normal speech, swallowing and gait. SEE DISCHARGE ORDERS/MEDICATIONS Discharge discussed with: patient, family - Time Spent with Patient Total time spent providing and/or coordinating discharge services: Greater than 30 minutes (35 minutes...) - Discharge Medications Prescriptions: Gabapentin [Neurontin] 200 mg PO TID #90 capsule Sertraline [Zoloft] 50 mg PO QAM #30 tablet traZODone [TraZODone] 25 mg PO HS #30 tablet Home Medications: Acetaminophen [Tylenol] 650 mg PO PRN PRN 02/26/16 [History] Aspirin Enteric Coated [Aspirin EC] 81 mg PO DAILY 02/26/16 [History] Atorvastatin [Lipitor] 40 mg PO QPM 02/26/16 [History] Carvedilol [Coreg] 12.5 mg PO BID 02/26/16 [History] Ergocalciferol (VITAMIN D2) [Vitamin D] 800 unit PO BID 02/26/16 [History] Ethyl Chloride 2 spray TP AD MDD Prior to Dialysis 02/26/16 [History] Hypromellose [Pure & Gentle Eye Drops] 1 drop BOTH EYES QID 02/26/16 [History] Omeprazole [PriLOSEC] 40 mg PO DAILY 02/26/16 [History] Oxybutynin Chloride [Ditropan Xl] 20 mg PO DAILY 02/26/16 [History] Albuterol Sulfate [Albuterol Inhaler] 2 puff IH Q6H PRN 02/21/17 [History] Polyethylene Glycol 3350 [MiraLAX] 17 gm PO DAILY PRN powd.pack 03/04/17 [Rx] Sennosides/Docusate Sodium [Senna Plus] 2 each PO BID tablet 03/04/17 [Rx] diazePAM [Valium] 5 mg PO BID PRN #15 tablet 03/04/17 [Rx] Gabapentin [Neurontin] 200 mg PO TID #90 capsule 06/28/18 [Rx] Sertraline [Zoloft] 50 mg PO QAM #30 tablet 06/28/18 [Rx] traZODone [TraZODone] 25 mg PO HS #30 tablet 06/28/18 [Rx] Allergies/Adverse Reactions: Allergy/AdvReac Type Severity Reaction Status Date / Time gemfibrozil Allergy See Verified 02/21/17 08:21 Comments Terazosin Allergy See Verified 02/21/17 08:21 Comments Date of admission: 06/26/18 18:59 Primary care physician: PCP ELSIE Discharging clinician: Christian Grace Anticipated date of discharge: 06/28/18 - Constitutional Vitals: Temp Pulse Resp BP Pulse Ox 98.7 F 70 18 135/80 99 06/28/18 10:35 06/28/18 10:35 06/28/18 10:35 06/28/18 10:35 06/28/18 06:52 General appearance: Present: cooperative, A&O X 3, no acute distress, answers questions appropriately Exam: xx - Patient Status Disposition: Home, Self-Care Condition: Good Functional capacity at discharge: independent ambulation Overall status at discharge: patient is back to baseline - Discharge Instructions [facility] With: [facility] Care Provider[facility] - Additional Instructions: HD ON //... CBC - TOMORROW - WITH HD... - Diet and Activity Activity: increase activity as tolerated Diet: advance to your usual diet - VTE Reasons for not Prescribing Prophylaxis: Treatment not Indicated - Low risk for VTE Deep Vein Thrombosis/Pulmonary Embolism Present on Admission: No
== END 2018-06-28 13:12 | disposition home or self-care (01) ==
LOC: EMEROOARM 14:14 → 2ANU 14:14 → SUATTDRO 18:59 → 2ANU 19:39
PROVIDERS: ADMIT Student in an Organized Health Care Education/Training Program; ATTEND Internal Medicine

== ENCOUNTER 2019-03-31 12:37 | Observation (INO) ==
[2019-03-31] MEDS ORDERED: GI Cocktail 40 ML EACH PO ONE (12:51)
[2019-03-31 13:31] LABS: Basophils # 0.1 K/mcL (0.0-0.2); Basophils % 1.3 %; Eosinophils # 0.1 K/mcL (0.0-0.6); Eosinophils % 1.9 %; Hematocrit 34.9 % (37.5-50.1); Immature Granulocytes % 0.5 % (0-4); Lymphocytes # 1.1 K/mcL (0.6-4.6); Lymphocytes % 14.5 %; Mean Corpuscular HGB Conc 31.5 g/dL (31.6-35.5); Mean Corpuscular Hemoglobin 30.1 pg (28.0-33.3); Mean Corpuscular Volume 95.4 fL (83.0-100.0); Mean Platelet Volume 10.6 fL (9.4-12.4); Monocytes # 0.6 K/mcL (0.0-1.3); Monocytes % 7.9 %; Neutrophils # 5.5 K/mcL (1.6-8.9); Platelet Count 189 K/mcL (140-400); Red Blood Count 3.66 M/mcL (4.19-5.50); Red Cell Distribution Width 16.9 % (11.5-14.5); Segmented Neutrophils % 73.9 %; White Blood Count 7.5 K/mcL (4.3-11.1)
[2019-03-31 13:36] LABS: INR 1.2; Prothrombin Time 13.2 Seconds (9.4-12.1)
[2019-03-31 13:52] LABS: Bilirubin,Urine Negative (Negative); Blood,Urine Moderate (Negative); Color,Urine Yellow (Yellow); Glucose,Urine (UA) Normal (Normal); Ketones,Urine Negative (Negative); Leukocyte Esterase,Urine Moderate (Negative); Nitrite,Urine Negative (Negative); PH,Urine 7.5 pH Units (5.0-8.0); Protein,Urine >=300 mg/dL (Neg-Trace); Specific Gravity,Urine 1.019 (1.010-1.025); Urobilinogen,Urine Normal (Normal)
[2019-03-31 13:53] LABS: Albumin 4.5 g/dL (3.5-5.7); Albumin/Globulin Ratio 1.6 (1.1-2.2); Bilirubin,Direct 0.2 mg/dL (0.0-0.2); Bilirubin,Indirect 0.8 mg/dL (0.0-1.0); Globulin 2.9 g/dL (2.4-3.5); Total Protein 7.4 g/dL (6.4-8.9)
[2019-03-31 13:54] LABS: Bacteria,Urine None Seen per hpf (None-Few); Hyaline Casts,Urine None Seen per lpf (None-Few); RBC,Urine 30-50 per hpf (0-3); Squamous Epithelial Cell,Urine Moderate per lpf (None-Few); WBC,Urine 50-100 per hpf (0-3)
[2019-03-31 13:55] LABS: Calcium 9.8 mg/dL (8.6-10.3)
[2019-03-31 14:00] LABS: Clarity,Urine Hazy (Clear)
[2019-03-31 14:02] LABS: Troponin I 0.04 ng/mL (< 0.04)
[2019-03-31 14:26] LABS: INR 1.3; Prothrombin Time 15.3 Seconds (9.4-12.1)
[2019-03-31 14:29] LABS: Activated Partial Thrombo Time 34.7 Seconds (26.0-36.0)
[2019-03-31 16:09] LABS: Hepatitis B Surface Antigen Nonreactive (Nonreactive)
[2019-03-31] MEDS ORDERED: Aspirin 81 MG TAB.CHEW PO ONE (16:40)
[2019-03-31] MEDS ORDERED: Naloxone 0.4 MG/ML INJ IVP PRN (17:25)
[2019-03-31] MEDS ORDERED: Ondansetron 4 MG/2 ML VIAL IVP PRN (17:25)
[2019-03-31] MEDS ORDERED: Nitroglycerin 0.4 MG TAB.SUBL SL PRN (17:27)
[2019-03-31] MEDS ORDERED: Ethyl Chloride Spray Bottle (104 SPRAY/BOTTLE) TP PRN (17:30)
[2019-03-31 19:21] LABS: Hepatitis B Surface Antibody 8.86 mIU/mL
[2019-03-31] MEDS: rOPINIRole 0.25 MG TABLET PO SCH (21:21)
[2019-03-31] MEDS: Megestrol Acetate 400 MG/10 ML UDC PO SCH (21:22)
[2019-03-31] MEDS: *HR* Heparin 5,000 UNIT/ML VIAL SQ SCH (21:22)
[2019-04-01 01:33] LABS: Basophils # 0.1 K/mcL (0.0-0.2); Basophils % 1.1 %; Eosinophils # 0.1 K/mcL (0.0-0.6); Eosinophils % 1.6 %; Hematocrit 32.6 % (37.5-50.1); Hemoglobin 10.4 g/dL (12.9-16.9); Immature Granulocytes % 0.4 % (0-4); Lymphocytes % 11.8 %; Mean Corpuscular HGB Conc 31.9 g/dL (31.6-35.5); Mean Corpuscular Hemoglobin 30.3 pg (28.0-33.3); Monocytes # 0.7 K/mcL (0.0-1.3); Monocytes % 8.5 %; Neutrophils # 6.2 K/mcL (1.6-8.9); Platelet Count 180 K/mcL (140-400); Red Blood Count 3.43 M/mcL (4.19-5.50); Segmented Neutrophils % 76.6 %
[2019-04-01 01:55] LABS: Phosphorous 5.3 mg/dL (2.7-4.5)
[2019-04-01 01:56] LABS: Calcium 9.4 mg/dL (8.6-10.3)
[2019-04-01] MEDS ORDERED: Regadenoson 0.4 MG/5 ML SYRINGE IVP ONE (06:08)
[2019-04-01] MEDS: *HR* Heparin 5,000 UNIT/ML VIAL SQ SCH ×3 (06:13→21:28)
[2019-04-01] MEDS ORDERED: 0.9 % Sodium Chloride 1,000 ML ONE (08:04)
[2019-04-01] MEDS: Aspirin Enteric Coated 81 MG Tablet PO SCH (08:19)
[2019-04-01] MEDS: Megestrol Acetate 400 MG/10 ML UDC PO SCH ×2 (08:19→21:28)
[2019-04-01] MEDS: BuPROPion XL (24 HR) 150 MG TABLET PO SCH (08:19)
[2019-04-01] MEDS ORDERED: 0.9 % Sodium Chloride 250 ML IVC PRN (08:29)
[2019-04-01] MEDS ORDERED: *HR* Heparin 10,000 UNIT/10 ML VIAL IV PRN (08:29)
[2019-04-01] MEDS ORDERED: 0.9 % Sodium Chloride 1,000 ML PRIME SCH (08:30)
[2019-04-01] MEDS: Calcium Acetate 667 MG CAPSULE PO SCH ×3 (13:26→17:34)
[2019-04-01] MEDS ORDERED: Perflutren Lipid Microsphere 1.3 ML in 0.9 % Sodium Chloride 8.7 ML IVP ONE (20:16)
[2019-04-01] MEDS: rOPINIRole 0.25 MG TABLET PO SCH (21:28)
[2019-04-02 04:33] LABS: Basophils # 0.1 K/mcL (0.0-0.2); Basophils % 1.1 %; Eosinophils # 0.1 K/mcL (0.0-0.6); Eosinophils % 1.8 %; Hematocrit 30.6 % (37.5-50.1); Hemoglobin 10.2 g/dL (12.9-16.9); Immature Granulocytes % 0.5 % (0-4); Lymphocytes # 1.3 K/mcL (0.6-4.6); Lymphocytes % 17.6 %; Mean Corpuscular HGB Conc 33.3 g/dL (31.6-35.5); Mean Corpuscular Hemoglobin 30.4 pg (28.0-33.3); Mean Corpuscular Volume 91.3 fL (83.0-100.0); Mean Platelet Volume 10.6 fL (9.4-12.4); Monocytes # 0.9 K/mcL (0.0-1.3); Monocytes % 11.5 %; Platelet Count 162 K/mcL (140-400); Red Blood Count 3.35 M/mcL (4.19-5.50); Red Cell Distribution Width 16.2 % (11.5-14.5); Segmented Neutrophils % 67.5 %; White Blood Count 7.4 K/mcL (4.3-11.1)
[2019-04-02 04:43] LABS: Calcium 9.2 mg/dL (8.6-10.3); Potassium 4.8 mEq/L (3.5-5.1)
[2019-04-02] MEDS: *HR* Heparin 5,000 UNIT/ML VIAL SQ SCH (05:50)
[2019-04-02] MEDS ORDERED: Regadenoson 0.4 MG/5 ML SYRINGE IVP ONE ×2 (07:30→07:47)
[2019-04-02] MEDS ORDERED: 0.9 % Sodium Chloride 250 ML IVC PRN (08:22)
[2019-04-02] MEDS ORDERED: *HR* Heparin 10,000 UNIT/10 ML VIAL IV PRN (08:22)
[2019-04-02] MEDS ORDERED: 0.9 % Sodium Chloride 1,000 ML PRIME SCH (08:30)
[2019-04-02] MEDS ORDERED: Pregabalin 50 MG CAPSULE PO SCH (09:00)
[2019-04-02] MEDS ORDERED: Pregabalin 75 MG CAPSULE PO SCH (09:00)
[2019-04-02] MEDS: Aspirin Enteric Coated 81 MG Tablet PO SCH (09:45)
[2019-04-02] MEDS: BuPROPion XL (24 HR) 150 MG TABLET PO SCH (09:45)
[2019-04-02] MEDS: Megestrol Acetate 400 MG/10 ML UDC PO SCH (09:45)
[2019-04-02] MEDS: Calcium Acetate 667 MG CAPSULE PO SCH ×2 (09:45→14:43)
[2019-04-02 13:11] VITALS: BP 141/87
== END 2019-04-02 14:58 | disposition home or self-care (01) ==
LOC: EMEROOARM 12:37 → 3BNU 12:37 → SUATTDRO 16:31 → 3BNU 17:55
PROVIDERS: ADMIT Student in an Organized Health Care Education/Training Program; ATTEND Family Medicine

== ENCOUNTER 2019-04-13 13:57 | Inpatient (IN) ==
[2019-04-13] MEDS ORDERED: Albuterol 2.5 MG/3 ML NEBULIZER IH ONE (14:09)
[2019-04-13] MEDS ORDERED: *HR* Dextrose 50 % in Water (Syg) 50 ML SYRINGE IVP ONE (14:10)
[2019-04-13] MEDS ORDERED: Calcium Gluconate 1,000 MG/10 ML VIAL IVPB ONE (14:12)
[2019-04-13] MEDS ORDERED: Insulin Human Regular 10 UNIT in 0.9 % Sodium Chloride 10 ML IV STA (14:16)
[2019-04-13] MEDS ORDERED: Calcium Gluconate 1gm/50mL 1 GM/50 ML BAG IVPB ONE ×2 (14:18→14:21)
[2019-04-13] MEDS ORDERED: *HR* Dextrose 50 % in Water (Syg) 50 ML SYRINGE ONE (14:21)
[2019-04-13 16:13] LABS: Basophils % 0.3 %; Hemoglobin 10.9 g/dL (12.9-16.9); Immature Granulocytes % 0.5 % (0-4); Lymphocytes # 1.3 K/mcL (0.6-4.6); Lymphocytes % 9.9 %; Mean Corpuscular HGB Conc 32.1 g/dL (31.6-35.5); Mean Corpuscular Hemoglobin 30.5 pg (28.0-33.3); Mean Corpuscular Volume 95.2 fL (83.0-100.0); Mean Platelet Volume 10.6 fL (9.4-12.4); Monocytes % 7.7 %; Neutrophils # 10.9 K/mcL (1.6-8.9); Platelet Count 174 K/mcL (140-400); Red Blood Count 3.57 M/mcL (4.19-5.50); Red Cell Distribution Width 14.9 % (11.5-14.5); Segmented Neutrophils % 81.6 %; White Blood Count 13.3 K/mcL (4.3-11.1)
[2019-04-13 16:44] LABS: Albumin 4.3 g/dL (3.5-5.7); Albumin/Globulin Ratio 1.3 (1.1-2.2); Alkaline Phosphatase 169 Units/L (34-104); Aspartate Amino Transferase 495 Units/L (13-39); Bilirubin,Direct 0.3 mg/dL (0.0-0.2); Bilirubin,Indirect 0.5 mg/dL (0.0-1.0); Bilirubin,Total 0.8 mg/dL (0.3-1.0); Blood Urea Nitrogen > 130 mg/dL (8-23); Calcium 9.4 mg/dL (8.6-10.3); Carbon Dioxide 15 mEq/L (23-29); Chloride 102 mEq/L (98-107); Globulin 3.2 g/dL (2.4-3.5); Glucose 133 mg/dL (70-105); Magnesium 2.1 mg/dL (1.6-2.6); Sodium 140 mEq/L (136-145); Total Protein 7.5 g/dL (6.4-8.9); Troponin I 0.08 ng/mL (< 0.04); eGFR For African Americans 6 (> 60); eGFR For Non-African Americans 5 (> 60)
[2019-04-13] MEDS ORDERED: Naloxone 0.4 MG/ML INJ IVP PRN (16:59)
[2019-04-13] MEDS ORDERED: *HR* Heparin 10,000 UNIT/10 ML VIAL IV PRN (17:03)
[2019-04-13] MEDS ORDERED: 0.9 % Sodium Chloride 250 ML IVC PRN (17:03)
[2019-04-13] MEDS ORDERED: 0.9 % Sodium Chloride 1,000 ML PRIME SCH (17:15)
[2019-04-13 17:17] LABS: Alanine Aminotransferase 519 Units/L (7-52)
[2019-04-13] MEDS ORDERED: NON-FORMULARY MEDICATION 1 EACH EACH (Omega-3/Dha/Epa/Fish Oil [Omega 3 500 Softgel] 1 CAP PO SCH (21:00)
[2019-04-13] MEDS: traMADol 50 MG TABLET PO ONE ×2 (21:51→22:00)
[2019-04-13] MEDS: rOPINIRole 0.25 MG TABLET PO SCH (21:51)
[2019-04-13] MEDS: Megestrol Acetate 400 MG/10 ML UDC PO SCH (21:52)
[2019-04-13] MEDS ORDERED: Ondansetron 4 MG/2 ML VIAL IVP ONE (22:23)
[2019-04-13] MEDS ORDERED: Haloperidol Lactate 5 MG/ML VIAL IVP ONE (22:41)
[2019-04-13 22:52] LABS: ABG Base Excess 3 mEq/L (-2 to 3); ABG HCO3 26 mEq/L (21-27); ABG Oxygen Saturation 100 % (95-98); ABG PCO2 31 mmHg (35-45); ABG PH 7.53 pH Units (7.32-7.45); ABG PO2 210 mmHg (85-104); ABG TCO2 27 mEq/L (20-26); Blood Gas Modality NIV
[2019-04-13] MEDS ORDERED: Dextrose Gel 15 GM/37.5 ML TUBE PO PRN ×2 (22:54)
[2019-04-13] MEDS ORDERED: D5% in Water 1,000 ML IVC PRN (22:54)
[2019-04-13] MEDS: *HR* Dextrose 50 % in Water (Syg) 50 ML SYRINGE IVP PRN (23:04)
[2019-04-13] MEDS ORDERED: Ziprasidone 20 MG/VIAL VIAL IM ONE (23:20)
[2019-04-13] MEDS: Ziprasidone 10 MG in Water for inj. (sterile) 0.5 ML IM ONE (23:21)
[2019-04-13 23:39] LABS: Basophils # 0.1 K/mcL (0.0-0.2); Basophils % 0.7 %; Eosinophils % 0.4 %; Hematocrit 33.9 % (37.5-50.1); Hemoglobin 11.1 g/dL (12.9-16.9); Immature Granulocytes % 0.7 % (0-4); Lymphocytes # 1.4 K/mcL (0.6-4.6); Lymphocytes % 13.1 %; Mean Corpuscular HGB Conc 32.7 g/dL (31.6-35.5); Mean Corpuscular Hemoglobin 29.9 pg (28.0-33.3); Mean Corpuscular Volume 91.4 fL (83.0-100.0); Mean Platelet Volume 11.1 fL (9.4-12.4); Monocytes % 9.8 %; Neutrophils # 7.8 K/mcL (1.6-8.9); Nucleated Red Blood Cells 0.3 /100 WBC (0); Platelet Count 141 K/mcL (140-400); Red Blood Count 3.71 M/mcL (4.19-5.50); Red Cell Distribution Width 14.6 % (11.5-14.5); Segmented Neutrophils % 75.3 %; White Blood Count 10.4 K/mcL (4.3-11.1)
[2019-04-14] MEDS: Megestrol Acetate 400 MG/10 ML UDC PO SCH ×3 (01:34→20:57)
[2019-04-14] MEDS: Ziprasidone 10 MG in Water for inj. (sterile) 0.5 ML IM ONE (01:35)
[2019-04-14] MEDS: *HR* Heparin 5,000 UNIT/ML VIAL SQ SCH ×4 (01:37→20:58)
[2019-04-14 04:07] LABS: Basophils # 0.1 K/mcL (0.0-0.2); Basophils % 0.6 %; Eosinophils # 0.1 K/mcL (0.0-0.6); Eosinophils % 0.9 %; Hemoglobin 11.7 g/dL (12.9-16.9); Immature Granulocytes % 0.5 % (0-4); Lymphocytes # 1.3 K/mcL (0.6-4.6); Lymphocytes % 13.6 %; Mean Corpuscular HGB Conc 34.4 g/dL (31.6-35.5); Mean Corpuscular Hemoglobin 30.2 pg (28.0-33.3); Mean Corpuscular Volume 87.9 fL (83.0-100.0); Mean Platelet Volume 10.3 fL (9.4-12.4); Monocytes # 0.6 K/mcL (0.0-1.3); Monocytes % 6.7 %; Neutrophils # 7.4 K/mcL (1.6-8.9); Nucleated Red Blood Cells 0.2 /100 WBC (0); Platelet Count 178 K/mcL (140-400); Red Blood Count 3.87 M/mcL (4.19-5.50); Red Cell Distribution Width 14.7 % (11.5-14.5); Segmented Neutrophils % 77.7 %; White Blood Count 9.5 K/mcL (4.3-11.1)
[2019-04-14 04:27] LABS: Calcium 9.2 mg/dL (8.6-10.3); Potassium 4.3 mEq/L (3.5-5.1)
[2019-04-14] MEDS: *HR* Dextrose 50 % in Water (Syg) 50 ML SYRINGE IVP PRN (05:43)
[2019-04-14] MEDS: Calcium Acetate 667 MG CAPSULE PO SCH ×3 (08:05→20:58)
[2019-04-14] MEDS: BuPROPion XL (24 HR) 150 MG TABLET PO SCH (08:06)
[2019-04-14] MEDS: Pregabalin 50 MG CAPSULE PO SCH (08:06)
[2019-04-14] MEDS: Aspirin Enteric Coated 81 MG Tablet PO SCH (08:06)
[2019-04-14] MEDS ORDERED: 0.9 % Sodium Chloride 250 ML IVC PRN (11:06)
[2019-04-14] MEDS ORDERED: *HR* Heparin 10,000 UNIT/10 ML VIAL IV PRN ×2 (11:06)
[2019-04-14] MEDS ORDERED: 0.9 % Sodium Chloride 1,000 ML PRIME SCH (11:15)
[2019-04-14 16:38] LABS: Albumin 4.4 g/dL (3.5-5.7); Albumin/Globulin Ratio 1.5 (1.1-2.2); Bilirubin,Direct 0.3 mg/dL (0.0-0.2); Bilirubin,Indirect 0.9 mg/dL (0.0-1.0); Bilirubin,Total 1.2 mg/dL (0.3-1.0); Total Protein 7.4 g/dL (6.4-8.9); Troponin I 0.11 ng/mL (< 0.04)
[2019-04-14] MEDS ORDERED: Gabapentin 300 MG CAPSULE PO SCH (18:13)
[2019-04-14] MEDS ORDERED: Pregabalin 75 MG CAPSULE PO SCH (18:13)
[2019-04-14] MEDS: rOPINIRole 0.25 MG TABLET PO SCH (20:58)
[2019-04-15 01:59] LABS: Basophils # 0.1 K/mcL (0.0-0.2); Basophils % 0.7 %; Eosinophils # 0.1 K/mcL (0.0-0.6); Eosinophils % 0.9 %; Hematocrit 36.9 % (37.5-50.1); Hemoglobin 12.7 g/dL (12.9-16.9); Immature Granulocytes % 0.7 % (0-4); Lymphocytes # 1.2 K/mcL (0.6-4.6); Lymphocytes % 10.2 %; Mean Corpuscular HGB Conc 34.4 g/dL (31.6-35.5); Mean Corpuscular Hemoglobin 30.2 pg (28.0-33.3); Mean Corpuscular Volume 87.6 fL (83.0-100.0); Mean Platelet Volume 10.6 fL (9.4-12.4); Monocytes # 1.5 K/mcL (0.0-1.3); Monocytes % 13.5 %; Neutrophils # 8.4 K/mcL (1.6-8.9); Nucleated Red Blood Cells 0.2 /100 WBC (0); Platelet Count 212 K/mcL (140-400); Red Blood Count 4.21 M/mcL (4.19-5.50); Red Cell Distribution Width 14.5 % (11.5-14.5); White Blood Count 11.3 K/mcL (4.3-11.1)
[2019-04-15 02:06] LABS: Albumin 4.2 g/dL (3.5-5.7); Albumin/Globulin Ratio 1.3 (1.1-2.2); Bilirubin,Total 0.9 mg/dL (0.3-1.0); Calcium 9.3 mg/dL (8.6-10.3); Globulin 3.2 g/dL (2.4-3.5); Total Protein 7.4 g/dL (6.4-8.9)
[2019-04-15] MEDS: *HR* Heparin 5,000 UNIT/ML VIAL SQ SCH (05:41)
[2019-04-15] MEDS: Megestrol Acetate 400 MG/10 ML UDC PO SCH (08:03)
[2019-04-15] MEDS: BuPROPion XL (24 HR) 150 MG TABLET PO SCH (08:04)
[2019-04-15] MEDS: Pregabalin 50 MG CAPSULE PO SCH (08:05)
[2019-04-15] MEDS: Aspirin Enteric Coated 81 MG Tablet PO SCH (08:05)
[2019-04-15] MEDS: Calcium Acetate 667 MG CAPSULE PO SCH (08:05)
[2019-04-15 11:18] VITALS: BP 83/58
== END 2019-04-15 12:12 | disposition home or self-care (01) | DRG 640 ==
LOC: EMEROOARM 13:57 → SUATTDRO 17:50 → 2ANU 17:50 → 2NNU 23:14
PROVIDERS: ADMIT Internal Medicine; ATTEND Internal Medicine